=== PATIENT | female | born 1955 | race Caucasian/White ===

== ENCOUNTER 2023-01-27 06:03 | Day surgery (SDC) | payer MEDICARE, OTHER, SELFPAY ==
[2023-01-27] VITALS (9 sets, daily range): BP systolic 127–153; BP diastolic 59–88; PULSE 50–94; RESP 16–18; TEMP 36.1–36.2; O2SAT 97–100; BMI 26.2
[2023-01-27] MEDS: Lactated Ringers 1,000 ML 15 ML IV (06:52)
--- NOTE | 2023-01-27 07:28 | PCM.HP.BLA ---
History and Physical Pt examined and findings are unchanged from clearance of 01/16/23. 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
[2023-01-27] MEDS: Cefazolin 2 GM in 0.9% Normal Saline 100 ML IV (07:30)
--- NOTE | 2023-01-27 07:30 | BR_PTH ---
PATIENT: SHERRY FLORES LOC: [facility] [place] U#:[id number] AGE/SX: 67/F ROOM: RE01/27/[address]: Dr. Kalani Vieira MD : 1955 BED: DIS: 01/27/2023 SPEC #: [id number] RECD: 01/27/23 11:35 STATUS: RAHUL AMADO #: [id number] ARON: 01/27/23 07:[address]: Kalani Vieira DEPT: SURGICAL PATHOLOGY RECD BY: Joyce Beltre ENTERED: 01/27/23 12:00 SP TYPE: MAMOPLASTY OTHR DR: DUANE Fitzgerald Tissues: Right breast, NOS Procedures: Surgery Specimen Level IV HEADER OPERATION: Removal entry level electrician ports bilaterally, revision right breast PRE-OP DIAGNOSIS: History of breast cancer TISSUE SUBMITTED: Dog ear right breast status post mastectomy MICROSCOPIC DIAGNOSIS Dog ear right breast, excision: Skin and underlying soft tissue with minimal fibrosis. No evidence of malignancy. AM:chapis 01/31/2023 MICROSCOPIC DESCRIPTION Slides are reviewed. GROSS DESCRIPTION Received in fixative is one container labeled with the patient's name and designated dog ear right breast status post mastectomy. The specimen consists of a piece of skin with underlying tissue measuring 9.5 x 4.0 cm and up to 1.5 cm in thickness. Sections do not reveal any mass lesion. Child Care Education Coordinator sections are submitted in two cassettes. / SONNY:chapis 01/30/2023 TC:5 CPT: 03845
[2023-01-27] MEDS: Bupivacaine 0.25% 30 ML Vial (09:45)
--- NOTE | 2023-01-27 09:59 | OP.PCM_ITS ---
Problems Associated Problem List Diagnoses (1) History of breast cancer in adulthood: (2) Acquired absence of bilateral breasts and nipples: (3) Post-mastectomy deformity of breast: Report of Operation Date of Procedure: 01/27/23 Pre-Operative Diagnosis: Acquired absence bilateral breast status postmastectomy; deformity of reconstructed breast Post-Operative Diagnosis: Same Surgery/Procedure Performed:: Removal of anesthesiology tech ports bilaterally; excision of postmastectomy dogear right breast (15 cm) with intermediate closure Surgeon: Kalani Vieira Type of Anesthesia: General Specimen's removed: Dogear right breast Estimated Blood Loss (mL): Minimal Description of Procedure: The procedure of removal of bilateral implant ports as well as revision of the right mastectomy breast dogear was reviewed. The incisions and scars as well as the limitations after surgery were reviewed. She is marked in the preop holding area prior to surgery. The patient was brought to the operating room and placed under general anesthesia in the supine position. Care was taken to pad all pressure points, insert a Zarate catheter, and sequential compression stockings as well as warming blanket. The breast and chest are prepped and draped in the usual sterile fashion. Initially began with making a small inframammary incision on the right breast. This is carried down through the subcutaneous tissue until the port is identified. The port is then removed and sharply pulled to seat the plug within the implant which will serve as a permanent implant. The incision is then checked for hemostasis which is controlled with cautery. The inframammary crease on the right side is then lowered by incising the inferior edge of the ADM to allow the implant to migrate to a lower position. The inframammary crease is then set with [id number] Vicryl sutures which not only set the inframammary crease but also occlude the previous port pocket. The incision is then closed in layers using a V-Loc suture to approximate the skin and at least 3 layers including a subcuticular closure. The previously marked dogear on the right breast is then incised along the lower edge. Lateral to the breast, a layer of subcutaneous fat is also removed. Hemostasis is controlled with cautery. This incision is then closed in layers using Vicryl suture in the subcutaneous tissue to close the space as well as along the incision. This incision is also closed in multiple layers using a V-Loc suture which concludes with a subcuticular suture. We then directed our attention to the left breast. A small incision is made in the inframammary area overlying the anesthesiology tech port. It is carried down through the subcutaneous tissue until the port is identified. The port is then removed and the fill tube sharply pulled in order to seat the plug within the implant. This incision is then closed in layers using a Vicryl suture to occlude the previous port capsule as well as a V-Loc suture which approximated the incision in multiple layers. Quarter percent plain Marcaine is injected along all the incisions. Xeroform is placed on all the incisions along with fluff gauze and the patient was placed in a surgery bra. She tolerated the procedure well and was taken to the recovery area in an awakening in stable condition. Needle and sponge counts are correct. Complications None Admit VTE Documentation VTE Mechan Device Prophylaxis: SCD's
--- NOTE | 2023-01-27 10:07 | EX.PCM.DISCH ---
Discharge Instructions Diet Discharge Diet: No restrictions Activity Additional Activity Instructions:: Keep your back elevated (recliner position) at night to decrease swelling and bruising. Limit activities as reviewed in the home-going instructions provided in the office. Leave the dressing in place until seen in the office. Sponge bathe only. Keep the dressings and bra dry. Dressing / Incision Remove Dressing in: do not remove dressing Follow Up Care Please Follow Up With: Kalani Vieira MD When: In 1 week Test Results: Test results from this visit will be discussed in further detail at your follow-up appointment, if applicable. Discharge Plan Admission Attending Provider: Kalani Vieira Primary Care Provider: Tony Sandy NP Discharge Orders/Prescriptions Prescriptions: No Action atorvastatin 20 mg tablet 20 mg PO DAILY alendronate [Fosamax] 70 mg tablet 70 mg PO QWEEK cimetidine 200 mg tablet 200 mg PO QAC PRN (Reason: acid reflux) multivitamin [Multiple Vitamins] 1 EACH tablet 1 ea PO DAILY cholecalciferol (vitamin D3) 5,000 UNIT capsule 5,000 unit PO DAILY Patient Comments: SUPPLEMENT hydrochlorothiazide 25 mg tablet 25 mg PO DAILY Patient Comments: BP Referrals / Follow Up: Tony Sandy NP, POACHER WRINGER OPERATOR-C [Primary Care Provider] - Disposition Disposition (needs filled in before D/C Order can be placed): Home, Self Care
== END 2023-01-27 12:54 | disposition home or self-care (01) ==
LOC: SDC 06:07 → AC 06:08
PROVIDERS: PCP Nurse Practitioner Family; Referring Provider Plastic Surgery; Visit Provider Plastic Surgery
PROC: (CPT 11971; principal; 2023-01-27 07:10)
DX: Z90.13 Acquired absence of bilateral breasts and nipples (principal); E78.00 Pure hypercholesterolemia, unspecified; Z79.899 Other long term (current) drug therapy; Z85.3 Personal history of malignant neoplasm of breast; N60.31 Fibrosclerosis of right breast
CPT/HCPCS: 11971; 12034; 19120; 00300; 88305; J7120; J2405; J3475

== ENCOUNTER → 2023-05-24 | Outpatient (CLI) | payer MEDICARE, OTHER, SELFPAY ==
--- NOTE | 2023-05-24 15:55 | RAD_ITS ---
INDICATION: pain -- pain on right side EXAMINATION/TECHNIQUE: X-RAY - XR Chest 2 Views COMPARISON: FINDINGS: LINES/DEVICES: None. LUNGS: There is a right upper lobe opacity medially. Basilar atelectasis. No pneumothorax. MEDIASTINUM AND CARDIOVASCULAR STRUCTURES: Cardiac silhouette not enlarged. Central airways and mediastinal contour are unremarkable. BONES AND SOFT TISSUES: Unremarkable. Possible hiatal hernia. RAD/Chest PA and Lateral IMPRESSION: There is a right upper lobe opacity. Correlate with CT if needed. Electronically Signed: Wenceslao Colindres DO at 20:10 EST Reading Location ID and State: [facility] / [place] Tel [phone], Service support ,
== END | disposition home or self-care (01) ==
LOC: RAD 15:43
PROVIDERS: PCP Nurse Practitioner Family; Referring Provider Plastic Surgery; Visit Provider Plastic Surgery
DX: Z85.3 Personal history of malignant neoplasm of breast (principal)
CPT/HCPCS: 71046

== ENCOUNTER → 2023-05-31 | Outpatient (CLI) | payer MEDICARE, OTHER, SELFPAY ==
--- NOTE | 2023-05-31 13:22 | MRI_ITS ---
STUDY: BILATERAL CHEST MR WITHOUT AND WITH CONTRAST REASON FOR EXAM: Female, 67 years old. Right chest wall pain. History of implants. TECHNIQUE: Multi-sequence multi-echo imaging of the chest was performed. T1-weighted and T2-weighted images were performed before the administration of contrast. T1-weighted images were also performed after the intravenous administration of 11cc Clariscan without complications. Tissue markers identifying the area of clinical concern on the right side of the chest were placed (axial series 12 image 4 axial series 11 images 30-33) COMPARISON: Chest x-ray dated May 24, 2023 FINDINGS: RIGHT BREAST: Right subpectoral implant with scattered metallic artifact surrounding the implant from implant placement. Small fold in the posterior implant. No evidence of intracapsular or extracapsular implant rupture. No skin abnormality identified in the area of the tissue markers. Normal lymph nodes in the right axilla. No abnormality in the visualized regions of the chest or liver. MRI/Chest W/WO Contrast IMPRESSION: Intact right breast implant with no abnormality otherwise identified. CATEGORY: Electronically Signed: Robin Kim MD at 10:57 EST ,
[2023-05-31 14:01] LABS: CREATININE FINGERSTICK < 1.0 mg/dL (0.55-1.02); EGFR FINGERSTICK > 60.0000 mL/min (>60)
== END | disposition home or self-care (01) ==
LOC: MRI 13:07
PROVIDERS: PCP Nurse Practitioner Family; Visit Provider Plastic Surgery
DX: Z85.3 Personal history of malignant neoplasm of breast (principal)
CPT/HCPCS: 71552; A9575

== ENCOUNTER → 2023-07-21 | Outpatient (CLI) | payer MEDICARE, OTHER, SELFPAY ==
--- NOTE | 2023-07-21 12:57 | US_ITS ---
EXAM: US CHEST CLINICAL INDICATION: MEDIAL RIGHT CHEST SWELLING S/P MASTECTOMY W/ RECONSTRUCTION BREAST IMPLANTS TECHNIQUE: Real-time ultrasound of the chest with image documentation. COMPARISON: No relevant prior studies available. FINDINGS: OTHER VASCULATURE: There is a slightly echogenic mass which corresponds to the palpable lump in the right chest that measures 1.2 x 0.9 x 0.7 cm. This has vascularity on color Doppler images. There is a second hypoechoic area irregular borders and lateral to the palpable lump that measures 1.2 x 0.6 x 1.6 cm which is also vascular. SOFT TISSUES: Unremarkable. No mass or fluid collection. LYMPH NODES: Unremarkable. No lymphadenopathy. US/Chest IMPRESSION: Echogenic structure with increased vascularity that corresponds to palpable lump in the right chest. There is a second hypoechoic vascular structure lateral to the first lesion. Further evaluation with MRI is recommended. Electronically Signed: Clyde Thibodeaux MD at 23:52 EST ,
--- OUTSIDE RECORDS SUMMARY | 2023-07-21 13:16 | XMS RPT_ITS | CCD ---
Author Name Unknown Address [address] [place] [address] Organization [facility] Care Team Providers Care Supervisor [employer] Name Role Phone Smith Ravi Unavailable Unavailable Smith Ravi Unavailable Unavailable Hellinger, Jamison King Unavailable Unavailable Hellinger, Jamison King Unavailable Unavailable Yair Lopez Unavailable Unavailable Hellinger Jamison KENT Primary Care Provider Hellinger Jamison KENT Primary Care Provider Hellinger SHRIMP TRAWLER-Jamison KENT Primary Care Provide r HelJamison watson CNP Primary Care Provider GHAZOUL, KALANI Attending Unavailable SELF, SELF Referring Unavailable HELLINGER, JAMISON L Primary Care Unavailable GHAZOUL, KALANI Attending Unavailable SELF, SELF Referring Unavailable HELLINGER, JAMISON L Primary Care Unavailable GHAZOUL, KALANI Attending Unavailable SELF, SELF Referring Unavailable HELLINGER, JAMISON L Primary Care Unavailable GHAZOUL, KALANI Attending Unavailable GHAZOUL, KALANI Referring Unavailable HELLINGER, JAMISON L Primary Care Unavailable GHAZOUL, KALANI Attending Unavailable SELF, SELF Referring Unavailable HELLINGER, JAMISON L Primary Care Unavailable GHAZOUL, KALANI Attending Unavailable HELLINGER, JAMISON L Primary Care Unavailable SELF, SELF Referring Unavailable GHAZOUL, KALANI Attending Unavailable HELLINGER, JAMISON L Primary Care Unavailable SELF, SELF Referring Unavailable GHAZOUL, KALANI Attending Unavailable HELLINGER, JAMISON L Primary Care Unavailable SELF, SELF Referring Unavailable SELF, SELF Referring Unavailable HELLINGER, JAMISON L Primary Care Unavailable GHAZOUL, KALANI Attending Unavailable HELLINGER, JAMISON L Primary Care Unavailable GHAZOUL, KALANI Attending Unavailable SELF, SELF Referring Unavailable HELLINGER, JAMISON L Primary Care Unavailable LOIS, SHAYNA Referring Unavailable GHAZOUL, KALANI Attending Unavailable GHAZOUL, KALANI Attending Unavailable GHAZOUL, KALANI Referring Unavailable GHAZOUL, KALANI Admitting Unavailable HELLINGER, JAMISON L Primary Care Unavailable FLOR MEDINA. Attending Unavailable FLOR MEDINA Referring Unavailable [facility] Primary Care Unavailable Hellinger Felicia KENT Primary Care Provider Hellinger Felicia KENT Primary Care Provider FLOR MEDINA Attending Unavailable FLOR MEDINA Referring Unavailable HELLINGANANDA, FELICIA KING Primary Care Unavailable FLOR TEJEDA Attending Unavailable HELLING, FELICIA KING Primary Care Unavailable FLOR MEDINA Attending Unavailable [facility] Referring Unavailable [facility] Primary Care Unavailable SHAYNA PAIGE Referring Unavailable HELLING, FELICIA KING Primary Care Unavailable Allergies Allergy Classification Reported Allergen(s) Allergy Type Date of Onset Reaction(s) Facility (8 sources) *Adhesive Tape Propensity to adverse reactions 07-12-2022 [facility] Medications Current Medications Medication Drug Class(es) Dates Sig (Normalized) Sig (Original) acetaminophen 325 mg / oxyCODONE hydrochloride 5 mg oral tablet (10 sources) Opioid Agonist Start: 07-25-2022 End: 07-28-2022 take 1 tablet by mouth every six hours as needed for pain oxyCODONE-acetami nophen 5-325 MG per tablet Indications: Acquired absence of bilateral breasts and nipples Take 1 tablet by mouth every 6 hours as needed for Moderate Pain (Use ONLY as needed for pain) for up to 3 days. 10 tablet 0 07/25/2022 Active Completed/Discontinued Medications Medication Drug Class(es) Dates Sig (Normalized) Sig (Original) alendronic acid 70 mg oral tablet (8 sources) Bisphosphonate Start: 11-08-2022 take 1 tablet by mouth every week in the morning alendronate (FOSAMAX) 70 mg tablet Take 1 tablet by mouth one time a week. In AM with cup of water on empty stomach. Nothing else by mouth and stay upright for 30 min. 12 tablet 2 11/08/2022 Active Problems Active Problems Problem Classification Problem Date Documented Date Episodic/Chronic Cancer of breast (20 sources) Lobular carcinoma in situ of right breast; Translations: [Lobular carcinoma in situ of right breast] Onset: 01-04-2017 Chronic Cancer of breast (20 sources) History of malignant neoplasm of breast; Translations: [Personal history of malignant neoplasm of breast] Onset: 10-02-2020 10-02-2020 Episodic Menopausal disorders (20 sources) Atrophic vaginitis; Translations: [Postmenopausal atrophic vaginitis] Onset: 12-15-2009 12-15-2009 Chronic Osteoporosis (20 sources) Osteoporosis; Translations: [Age-related osteoporosis without current pathological fracture] Onset: 07-10-2017 11-04-2020 Chronic Prolapse of female genital organs (20 sources) Incomplete uterovaginal prolapse; Translations: [Incomplete uterovaginal prolapse] Onset: 12-15-2009 12-15-2009 Chronic Residual codes; unclassified (20 sources) Bilateral acquired absence of breast; Translations: [Acquired absence of bilateral breasts and nipples] Onset: 04-27-2022 Episodic Residual codes; unclassified (3 sources) History of breast reconstruction; Translations: [Other specified postprocedural states] Episodic Residual codes; unclassified (2 sources) Other specified postprocedural states; Translations: [Other specified postprocedural states] Onset: 10-11-2022 Episodic Residual codes; unclassified (1 source) Acquired absence of bilateral breasts and nipples; Translations: [Acquired absence of bilateral breasts and nipples] Onset: 07-25-2022 Episodic Unclassified (2 sources) Establish Care; Translations: [Establish Care] Onset: 09-27-2022 Unclassified (2 sources) Consult; Translations: [Consult] Onset: 04-27-2022 Past or Other Problems Problem Classification Problem Date Documented Date Episodic/Chronic Other aftercare (12 sources) Long-term current use of aromatase inhibitor; Translations: [termite exterminator (current) use of aromatase inhibitors] Onset: 01-04-2017 10-02-2020 Episodic Other screening for suspected conditions (not mental disorders or infectious disease) (7 sources) Patient encounter status; Translations: [Encounter for screening for osteoporosis] Onset: 09-27-2022 Episodic Residual codes; unclassified (12 sources) Family history of breast cancer; Translations: [Family history of malignant neoplasm of breast] Onset: 12-15-2009 12-15-2009 Episodic Residual codes; unclassified (20 sources) Breast cancer genetic marker of susceptibility positive; Translations: [Genetic susceptibility to malignant neoplasm of breast] Onset: 02-06-2017 02-06-2017 Episodic Residual codes; unclassified (12 sources) Postmenopausal state; Translations: [Asymptomatic menopausal state] Onset: 10-02-2020 10-02-2020 Episodic Residual codes; unclassified (1 source) Genetic susceptibility to malignant neoplasm of breast; Translations: [BRCA gene mutation positive] Onset: 02-06-2017 Episodic Residual codes; unclassified (1 source) Genetic susceptibility to other malignant neoplasm; Translations: [BRCA gene mutation positive] Onset: 02-06-2017 Episodic Results Test Name Value Interpretation Reference Range Facil ity Vital Signs Date Time Vital Sign Value Performing Clinician Facility 05-12-2023 15:53-0500 Body temperature 98.91 [degF] Flor Tejeda MD Work Phone: [facility] 05-12-2023 15:53-0500 Body weight 57.06 kg Flor Tejeda MD Work Phone: [facility] 05-12-2023 15:53-0500 Diastolic blood pressure 78 mm[Hg] Flor Tejeda MD Work Phone: [facility] 05-12-2023 15:53-0500 Heart rate 84 /min Flor Tejeda MD Work Phone: [facility] 05-12-2023 15:53-0500 SaO2% (BldA) [Mass fraction] 98 % Flor Tejeda MD Work Phone: [facility] 05-12-2023 15:53-0500 Systolic blood pressure 136 mm[Hg] Flor Tejeda MD Work Phone: [facility] 09-27-2022 13:21-0400 Body height 147.3 cm Flor Medina APRN.CNP Work Phone: [facility] 09-27-2022 13:21-0400 Body temperature 98.2 [degF] Flor Medina APRN.CHENILLE MACHINE OPERATOR Work Phone: [facility] 09-27-2022 13:21-0400 Body weight 56.79 kg Flor Medina APRN.CHENILLE MACHINE OPERATOR Work Phone: [facility] 09-27-2022 13:21-0400 Diastolic blood pressure 70 mm[Hg] Flor Medina APRN.CHENILLE MACHINE OPERATOR Work Phone: [facility] 09-27-2022 13:21-0400 Heart rate 54 /min Flor Medina SHRIMP TRAWLER.CHENILLE MACHINE OPERATOR Work Phone: [facility] 09-27-2022 13:21-0400 Respiratory rate 16 /min Flor Medina APRN.CHENILLE MACHINE OPERATOR Work Phone: [facility] 09-27-2022 13:21-0400 SaO2% (BldA) [Mass fraction] 97 % Flor Medina APRN.CHENILLE MACHINE OPERATOR Work Phone: [facility] 09-27-2022 13:21-0400 Systolic blood pressure 133 mm[Hg] Flor Medina APRN.CHENILLE MACHINE OPERATOR Work Phone: [facility] 09-27-2022 09:39-0400 Body height 148.6 cm Kalani Vieira MD Work Phone: [facility] 09-27-2022 09:39-0400 Body mass index (BMI) [Ratio] 25.76 kg/m2 Kalani Vieira MD Work Phone: [facility] 09-27-2022 09:39-0400 Body temperature 97.11 [degF] Kalani Vieira MD Work Phone: [facility] 09-27-2022 09:39-0400 Body weight 56.88 kg Kalani Vieira MD Work Phone: [facility] 09-27-2022 09:39-0400 Diastolic blood pressure 79 mm[Hg] Kalani Vieira MD Work Phone: 2(189)129-565782 [place] [address] 09-27-2022 09:39-0400 Heart rate 58 /min Kalani Vieira MD Work Phone: 7(342)888-109260 [place] [address] 09-27-2022 09:39-0400 Systolic blood pressure 138 mm[Hg] Kalani Vieira MD Work Phone: 1(455)562-453160 [place] [address] 09-13-2022 13:13-0400 Body height 148.6 cm Kalani Vieira MD Work Phone: 9(097)386-824060 [place] [address] 09-13-2022 13:13-0400 Body mass index (BMI) [Ratio] 26.05 kg/m2 Kalani Vieira MD Work Phone: 0(585)037-210160 [place] [address] 09-13-2022 13:13-0400 Body temperature 97.81 [degF] Kalani Vieira MD Work Phone: 3(297)903-516760 [place] [address] 09-13-2022 13:13-0400 Body weight 57.52 kg Kalani Vieira MD Work Phone: 4(658)157-479260 [place] [address] 09-13-2022 13:13-0400 Diastolic blood pressure 86 mm[Hg] Kalani Vieira MD Work Phone: 5(229)635-824960 [place] [address] 09-13-2022 13:13-0400 Heart rate 67 /min Kalani Vieira MD Work Phone: 1(639)307-131260 [place] [address] 09-13-2022 13:13-0400 Systolic blood pressure 143 mm[Hg] Kalani Vieira MD Work Phone: 6(015)462-556360 [place] [address] 08-30-2022 11:36-0500 Body height 148.6 cm Kalani Vieira MD Work Phone: 6(885)008-168860 [place] [address] 08-30-2022 11:36-0500 Body mass index (BMI) [Ratio] 25.62 kg/m2 Kalani Vieira MD Work Phone: 7(561)365-776360 [place] [address] 08-30-2022 11:36-0500 Body temperature 98.01 [degF] Kalani Vieira MD Work Phone: 8(535)088-341160 [place] [address] 08-30-2022 11:36-0500 Body weight 56.56 kg Kalani Vieira MD Work Phone: 7(288)572-086160 [place] [address] 08-30-2022 11:36-0500 Diastolic blood pressure 84 mm[Hg] Kalani Vieira MD Work Phone: 5(748)122-328460 [place] [address] 08-30-2022 11:36-0500 Heart rate 63 /min Kalani Vieira MD Work Phone: 6(395)873-862760 [place] [address] 08-30-2022 11:36-0500 Systolic blood pressure 145 mm[Hg] Kalani Vieira MD Work Phone: 5(394)672-697260 [place] [address] 08-09-2022 13:08-0500 Body height 148.6 cm Kalani Vieira MD Work Phone: 1(248)037-618660 [place] [address] 08-09-2022 13:08-0500 Body mass index (BMI) [Ratio] 25.56 kg/m2 Kalani Vieira MD Work Phone: 6(829)201-818060 [place] [address] 08-09-2022 13:08-0500 Body temperature 97.3 [degF] Kalani Vieira MD Work Phone: 8(785)631-384860 [place] [address] 08-09-2022 13:08-0500 Body weight 56.43 kg Kalani Vieira MD Work Phone: 4(472)307-744060 [place] [address] 08-09-2022 13:08-0500 Diastolic blood pressure 77 mm[Hg] Kalani Vieira MD Work Phone: 2(587)409-390260 [place] [address] 08-09-2022 13:08-0500 Heart rate 63 /min Kalani Vieira MD Work Phone: 0(384)629-396860 [place] [address] 08-09-2022 13:08-0500 Systolic blood pressure 126 mm[Hg] Kalani Vieira MD Work Phone: 0(896)207-039360 [place] [address] 2022 13:14-0500 Body height 148.6 cm Kalani Vieira MD Work Phone: 1(922)270-364260 [place] [address] 2022 13:14-0500 Body mass index (BMI) [Ratio] 25.6 kg/m2 Kalani Vieira MD Work Phone: 8(424)406-019160 [place] [address] 2022 13:14-0500 Body temperature 97.5 [degF] Kalani Vieira MD Work Phone: 0(353)498-291060 [place] [address] 2022 13:14-0500 Body weight 56.52 kg Kalani Vieira MD Work Phone: 5(125)041-556460 [place] [address] 2022 13:14-0500 Diastolic blood pressure 77 mm[Hg] Kalani Vieira MD Work Phone: 2(800)326-858260 [place] [address] 2022 13:14-0500 Heart rate 56 /min Kalani Vieira MD Work Phone: 3(736)925-290160 [place] [address] 2022 13:14-0500 Systolic blood pressure 145 mm[Hg] Kalani Vieira MD Work Phone: 9(613)349-105960 [place] [address] 07-25-2022 15:30-0500 Diastolic blood pressure 70 mm[Hg] Kalani Vieira MD Work Phone: 0(717)637-924060 [place] [address] 07-25-2022 15:30-0500 Heart rate 77 /min Kalani Vieira MD Work Phone: 3(082)921-173160 [place] [address] 07-25-2022 15:30-0500 Respiratory rate 17 /min Kalani Vieira MD Work Phone: 5(695)536-884060 [place] [address] 07-25-2022 15:30-0500 SaO2% (BldA) [Mass fraction] 98 % Kalani Vieira MD Work Phone: 1(941)484-943260 [place] [address] 07-25-2022 15:30-0500 Systolic blood pressure 139 mm[Hg] Kalani Vieira MD Work Phone: 6(625)817-630460 [place] [address] 07-25-2022 12:45-0500 Body temperature 96.8 [degF] Kalani Vieira MD Work Phone: 4(013)540-180560 [place] [address] 07-25-2022 06:04-0500 Body height 148.6 cm Kalani Vieira MD Work Phone: 7(791)095-589560 [place] [address] 07-25-2022 06:04-0500 Body mass index (BMI) [Ratio] 25.06 kg/m2 Kalani Vieira MD Work Phone: 2(881)974-675760 [place] [address] 07-25-2022 06:04-0500 Body weight 55.34 kg Kalani Vieira MD Work Phone: 6(571)164-066660 [place] [address] 07-12-2022 12:55-0500 Body height 147.3 cm Kalani Vieira MD Work Phone: 3(069)096-564060 [place] [address] 07-12-2022 12:55-0500 Body mass index (BMI) [Ratio] 25.92 kg/m2 Kalani Vieira MD Work Phone: 0(691)426-931260 [place] [address] 07-12-2022 12:55-0500 Body temperature 97.11 [degF] Kalani Vieira MD Work Phone: 5(063)965-946960 [place] [address] 07-12-2022 12:55-0500 Body weight 56.25 kg Kalani Vieira MD Work Phone: 7(288)201-297960 [place] [address] 07-12-2022 12:55-0500 Diastolic blood pressure 62 mm[Hg] Kalani Vieira MD Work Phone: 2(738)090-104560 [place] [address] 07-12-2022 12:55-0500 Heart rate 58 /min Kalani Vieira MD Work Phone: 5(495)042-016160 [place] [address] 07-12-2022 12:55-0500 Systolic blood pressure 114 mm[Hg] Kalani Vieira MD Work Phone: 2(504)005-103660 [place] [address] 06-21-2022 12:50-0500 Body height 147.3 cm Kalani Vieira MD Work Phone: 7(346)072-965760 [place] [address] 06-21-2022 12:50-0500 Body mass index (BMI) [Ratio] 25.92 kg/m2 Kalani Vieira MD Work Phone: 2(753)400-593860 [place] [address] 06-21-2022 12:50-0500 Body temperature 98.2 [degF] Kalani Vieira MD Work Phone: 7(499)143-325160 [place] [address] 06-21-2022 12:50-0500 Body weight 56.25 kg Kalani Vieira MD Work Phone: 5(587)783-642560 [place] [address] 06-21-2022 12:50-0500 Diastolic blood pressure 79 mm[Hg] Kalani Vieira MD Work Phone: 2(611)320-951260 [place] [address] 06-21-2022 12:50-0500 Heart rate 64 /min Kalani Vieira MD Work Phone: 1(160)392-139460 [place] [address] 06-21-2022 12:50-0500 Systolic blood pressure 151 mm[Hg] Kalani Vieira MD Work Phone: 5(448)439-895760 [place] [address] 04-27-2022 14:51-0400 Body height 147.3 cm Kalani Vieira MD Work Phone: 9(645)055-411560 [place] [address] 04-27-2022 14:51-0400 Body mass index (BMI) [Ratio] 25.29 kg/m2 Kalani Vieira MD Work Phone: 6(141)453-117960 [place] [address] 04-27-2022 14:51-0400 Body temperature 97.39 [degF] Kalani Vieira MD Work Phone: 1(190)784-240060 [place] [address] 04-27-2022 14:51-0400 Body weight 54.88 kg Kalani Vieira MD Work Phone: 9(839)494-192360 [place] [address] 04-27-2022 14:51-0400 Diastolic blood pressure 81 mm[Hg] Kalani Vieira MD Work Phone: [facility] 04-27-2022 14:51-0400 Heart rate 63 /min Kalani Vieira MD Work Phone: [facility] 04-27-2022 14:51-0400 Systolic blood pressure 130 mm[Hg] Kalani Vieira MD Work Phone: [facility] 04-12-2022 10:50-0400 Body height 147.3 cm Analia Whitten MD Work Phone: [facility] 04-12-2022 10:50-0400 Body weight 55.79 kg Analia Whitten MD Work Phone: [facility] 04-12-2022 10:50-0400 Diastolic blood pressure 72 mm[Hg] Analia Whitten MD Work Phone: [facility] 04-12-2022 10:50-0400 Systolic blood pressure 110 mm[Hg] Analia Whitten MD Work Phone: [facility] 03-29-2022 10:41-0400 Body temperature 97.9 [degF] Shayna Paige MD Work Phone: [facility] 03-29-2022 10:41-0400 Body weight 55.38 kg Shayna Paige MD Work Phone: [facility] 03-29-2022 10:41-0400 Diastolic blood pressure 71 mm[Hg] Shayna Paige MD Work Phone: [facility] 03-29-2022 10:41-0400 Heart rate 63 /min Shayna Paige MD Work Phone: [facility] 03-29-2022 10:41-0400 Respiratory rate 16 /min Shayna Paige MD Work Phone: [facility] 03-29-2022 10:41-0400 SaO2% (BldA) [Mass fraction] 97 % Shayna Paige MD Work Phone: [facility] 03-29-2022 10:41-0400 Systolic blood pressure 144 mm[Hg] Shayna Paige MD Work Phone: [facility] 09-30-2021 10:21-0400 Body temperature 98.2 [degF] Shayna Paige MD Work Phone: [facility] 09-30-2021 10:21-0400 Body weight 56.02 kg Shayna Paige MD Work Phone: [facility] 09-30-2021 10:21-0400 Diastolic blood pressure 72 mm[Hg] Shayna Paige MD Work Phone: [facility] 09-30-2021 10:21-0400 Heart rate 55 /min Shayna Paige MD Work Phone: [facility] 09-30-2021 10:21-0400 Respiratory rate 16 /min Shayna Paige MD Work Phone: [facility] 09-30-2021 10:21-0400 SaO2% (BldA) [Mass fraction] 97 % Shayna Paige MD Work Phone: [facility] 09-30-2021 10:21-0400 Systolic blood pressure 140 mm[Hg] Shayna Paige MD Work Phone: [facility] Encounters Encounter Date Encounter Type Care Provider Facility Start: 05-12-2023 End: 05-12-2023 ambulatory FLOR TEJEDA Facility:[facility] Start: 05-12-2023 End: 05-12-2023 Patient encounter procedure Flor Tejeda MD Work Phone: General Surgery Procedures Date Procedure Procedure Detail Performing Clinician Start: 09-27-2021 Adult depression scr eening assessment Nahomi Carrasco RN Start: 04-21-2021 Colonoscopy Nahomi gomez RN Start: 03-10-2016 Mammography Nahomi gomez RN Plan of Treatment Date Care Activity Detail Author Start: 01-31-2028 Tetanus vaccination [facility] Start: 01-31-2028 Urine microalbumin profile [facility] Start: 04-21-2026 Colonoscopy COLONOSCOPY [facility] Start: 04-21-2026 COLORECTAL CANCER SCREENING COLORECTAL CANCER SCREENING [facility] Start: 09-27-2025 DIABETES SCREEN DIABETES SCREEN [facility] Start: 09-27-2025 Diabetes Screening Diabetes Screening [facility] Start: 03-29-2025 DIABETES SCREEN DIABETES SCREEN [facility] Start: 09-30-2024 DIABETES SCREEN DIABETES SCREEN [facility] Start: 07-12-2023 Potassium [Moles/volume] in Serum or Plasma POTASSIUM [facility] Start: 03-03-2023 Covid-19 Vaccine () Covid-19 Vaccine () [facility] Start: 03-03-2023 Covid-19 Vaccine () Covid-19 Vaccine () [facility] Start: 03-03-2023 Influenza vaccination [facility] Start: 09-27-2022 Adult depression screening assessment DEPRESSION SCREENING [facility] Start: 09-27-2022 End: 11-21-2022 CBC W Auto Differential panel - Blood CBC + DIFF Lab Routine BRCA 2 gene mutation positive Invasive lobular carcinoma of right breast, stage 1 (HCC) T2 N0 Expected: 09/27/2022, Expires: 11/21/2022 [facility] Work Phone: Immunizations Immunization Date Immunization Notes Care Provider [facility] 04-01-2020 influenza, injectabl e, quadrivalent, preservative free Analia Whitten MD Work Phone: [facility] Work Phone: 04-01-2020 influenza virus vaccine, unspecified formulation Kalani Vieira MD Work Phone: [facility] 02-17-2020 pneumococcal conjuga te vaccine, 13 valent Analia Whitten MD Work Phone: [facility] Work Phone: 05-08-2019 influenza, injectabl e, quadrivalent, preservative free Analia Whitten MD Work Phone: [facility] Work Phone: 05-10-2018 influenza, injectabl e, quadrivalent, preservative free Analia Whitten MD Work Phone: [facility] Work Phone: 05-02-2018 influenza, injectabl e, quadrivalent, preservative free Analia Whitten MD Work Phone: [facility] Work Phone: 01-30-2018 tetanus toxoid, redu hollis diphtheria toxoid, and acellular pertussis vaccine, adsorbed Analia Whitten MD Work Phone: [facility] Work Phone: Payers Date Payer Category Payer Medicare MEDICARE MEDICAR E A AND B [id number] 2019-Present [phone] [address] [address] [place] [address] Medicare [id number] 2019 Medicare [id number] 2019 Medicare [id number] 2019 Unknown [employer] D [id number] 2019-Present [phone] [address] [address] [place] [address] Indemnity [id number] 2019 Unknown [id number] 2017 Unknown 1954 Unknown [id number] [id number] .983 1954 Unknown [id number] [id number] .983 1954 Unknown [id number] [id number] .983 1954 Unknown [id number] [id number] .983 1954 Unknown [id number] [id number] .983 1954 Unknown [id number] [id number] .983 1954 Unknown [id number] [id number] .983 1954 Unknown [id number] 2.16.840.1.251025.3.579.2 .983 1954 Unknown [id number] [id number] .983 1954 Unknown [id number] [id number] .983 1954 Unknown [id number] 2.16.840.1.521232.3.579.2 .983 1954 Unknown [id number] [id number] .983 1954 Unknown [id number] .903 [facility] [id number] Social History Date Type Detail Facility Start: 01-21-2013 End: 04-12-2022 Tobacco smoking status NHIS Never smoked tobacco [facility] Start: 04-23-2021 End: 05-12-2023 Alcohol intake Current drinker of alcohol (finding) [facility] Start: 04-23-2021 End: 11-08-2022 Alcohol intake [facility] Start: 01-21-2013 History SDOH Alcohol Comment occasionally [facility] Start: 1955 Sex Assigned At Not on file C [facility] Start: 01-21-2013 End: 04-12-2022 Tobacco use and exposure Smokeless [facility] Start: 03-19-2022 End: 04-12-2022 Exposure to SARS-CoV-2 (event) Not sure [facility] Start: 04-12-2022 End: 11-08-2022 Tobacco use panel [facility] Adult Depression Screening Assessment 0 [facility] Medical Equipment Procedure Code Equipment Code Equipment Origin al Text Equipment Identifier Dates [employer] und Spectrum Post-Operatively Adjustable Saline Breast Implant [id number] Start: 07-25-2022 Clinical Notes 09-30-2021 to 05-12-2023 Flor Tejeda MD - 05/12/2023 4:01 PM ESTTelephone Encounter - Rafia Oswald - 05/05/2023 9:40 AM EDTTelephone Encounter - Anitha Fernando LPN - 05/05/2023 9:19 AM EDTPatient Instructions Note Date & Type Note Facility 05-12-2023 Note HNO ID: [id number] Author: Flor Tejeda MD Service: ? Author Type: Physician Type: Progress Notes Filed: 05/13/2023 8:29 PM Note Text: Sherry Vazquez 1955 REFERRING PHYSICIAN: No ref. provider found CHIEF COMPLAINT: Follow Up (Yearly follow-up for breast evaluation. ) HPI: The patient is a 67 year old female presents for follow up for breast cancer She has had reconstructive breast surgery in July of this year She has concern about area upper inner aspect of right breast - feels like scar tissue Slight asymmetry - left greater than right but otherwise feels ok PAST MEDICAL HISTORY Diagnosis Date BRCA2 positive 12/2016 Breast cancer (HCC) 10/2016 right Hyperlipidemia Hyperlipidemia Hypertension PAST SURGICAL HISTORY Procedure Laterality Date ABDOMINAL SURGERY HX BREAST BIOPSY Right 10/2016 BREAST LUMPECTOMY HX Right 10/2016 BREAST SURGERY HX COLONOSCOPY FLX DX W/COLLJ SPEC WHEN PFRMD 04/21/2021 MASTECTOMY HX Right 11/22/2016 MASTECTOMY HX 03/2017 Prophylactic SALPINGO-OOPHORECTOMY COMPL/PRTL UNI/BI SPX Bilateral 03/22/2017 laprascopic BSO, prophylactic TUBAL LIGATION HX Current Outpatient Medications Medication Sig alendronate (FOSAMAX) 70 mg tablet Take 1 tablet by mouth one time a week. In AM with cup of water on empty stomach. Nothing else by mouth and stay upright for 30 min. cimetidine (TAGAMET) 200 mg tablet Take 200 mg by mouth as needed. atorvastatin (LIPITOR) 20 mg tablet Take 20 mg by mouth once daily. cholecalciferol (VITAMIN D3) 5,000 unit tab Take 5,000 Units by mouth once daily. hydroCHLOROthiazide (HYDRODIURIL, ESIDRIX) 12.5 mg tablet Take 25 mg by mouth once daily. MULTIVITAMIN ORAL Take by mouth. No current facility-administered medications for this visit. ALLERGIES: Patient has no known allergies. PERSONAL HISTORY: Social History Tobacco Use Smoking status: Never Smokeless tobacco: Never Vaping Use Vaping Use: Never used Substance Use Topics Alcohol use: Yes Alcohol/week: 15.0 standard drinks of alcohol Types: 6 Cans of Beer (12oz) per week Comment: occasionally Drug use: No FAMILY HISTORY Problem Relation Age of Onset Heart Attack Sister 55 Heart Mother Endometrial ca also [Abida Weldon] Breast Cancer Mother 85 Prostate Cancer Father Breast Cancer Sister at age 32 Breast Cancer Sister at age 45 Colon Cancer Paternal Grandfather other (BRCA2 mutated) Other REVIEW OF SYMPTOMS: The review of systems data was entered by the nurse and reviewed by me There are no exam notes on file for this visit. PHYSICAL EXAMINATION: General: The patient is 67 year old female, well nourished, well hydrated in no acute distress. The patient is oriented to time, place, and person. VITALS: Blood pressure 136/78, pulse 84, temperature 37.2 ?C (98.9 ?F), weight 57.1 kg (125 lb 12.8 oz), SpO2 98 %. Body mass index is 26.3 kg/m?. Head - Normocephalic. EOM intact with sclera clear and no icterus noted. Mouth with mucus membranes moist. Neck - supple with no jugular venous distention noted. Trachea is midline. No carotid bruits noted. No thyroid enlargement or thyroid nodules detected. No masses noted. Chest/breast - both breasts surgically absent with reconstruction (implants) in place, no suspicious masses - patient points to inner upper quadrant of right chest wall - but this is c/w scar tissue Lungs - clear to auscultation. Normal breath sounds. No rales/rhonchi/wheezing noted. No labored breathing noted, such as retractions. No cough heard. Heart - normal S1 and S2 auscultated. No rubs/clicks/murmurs noted. Regular rate. Abdomen - soft and benign. . Extremities - no calf tenderness noted. No pitting edema noted. Skin - normal skin integrity. Lymph - no cervical adenopathy detected, no supraclavicular adenopathy detected, no axillary adenopathy detected Neurological - gait normal, no focal deficits noted Psych - calm and appropriate Assessment IMPRESSION: history of breast cancer PLAN: I have discussed the above with the patient. I have reassured patient that there is no clinical evidence of malignancy The patient acknowledges he above. I have answered all questions to the patient?s satisfaction and the patient has no further questions. I have confirmed and edited as necessary, the PFSH and ROS obtained by others. . Diagnoses: (Z85.3) History of right breast cancer (primary encounter diagnosis) Return to Clinic: The patient is will follow up with me in one year, or sooner if she notes any worsening signs/symptoms. I spent a total of 21 minutes on the date of the service which included preparing to see the patient with review of any pertinent laboratory studies/radiological imaging/medical records, [id number] patient care, obtaining oral medical history from the patient in this encounter, performing a medically appropriate examinatio (more content not included)... [facility] 05-12-2023 History of Present illness Narrative Sherry Vazquez 1955 REFERRING PHYSICIAN: No ref. provider found CHIEF COMPLAINT: Follow Up (Yearly follow-up for breast evaluation. ) HPI: The patient is a 67 year old female presents for follow up for breast cancer She has had reconstructive breast surgery in July of this year She has concern about area upper inner aspect of right breast - feels like scar tissue Slight asymmetry - left greater than right but otherwise feels ok PAST MEDICAL HISTORY Diagnosis Date BRCA2 positive 12/2016 Breast cancer (HCC) 10/2016 right Hyperlipidemia Hyperlipidemia Hypertension PAST SURGICAL HISTORY Procedure Laterality Date ABDOMINAL SURGERY HX BREAST BIOPSY Right 10/2016 BREAST LUMPECTOMY HX Right 10/2016 BREAST SURGERY HX COLONOSCOPY FLX DX W/COLLJ SPEC WHEN PFRMD 04/21/2021 MASTECTOMY HX Right 11/22/2016 MASTECTOMY HX 03/2017 Prophylactic SALPINGO-OOPHORECTOMY COMPL/PRTL UNI/BI SPX Bilateral 03/22/2017 laprascopic BSO, prophylactic TUBAL LIGATION HX Current Outpatient Medications Medication Sig alendronate (FOSAMAX) 70 mg tablet Take 1 tablet by mouth one time a week. In AM with cup of water on empty stomach. Nothing else by mouth and stay upright for 30 min. cimetidine (TAGAMET) 200 mg tablet Take 200 mg by mouth as needed. atorvastatin (LIPITOR) 20 mg tablet Take 20 mg by mouth once daily. cholecalciferol (VITAMIN D3) 5,000 unit tab Take 5,000 Units by mouth once daily. hydroCHLOROthiazide (HYDRODIURIL, ESIDRIX) 12.5 mg tablet Take 25 mg by mouth once daily. MULTIVITAMIN ORAL Take by mouth. No current facility-administered medications for this visit. ALLERGIES: Patient has no known allergies. PERSONAL HISTORY: Social History Tobacco Use Smoking status: Never Smokeless tobacco: Never Vaping Use Vaping Use: Never used Substance Use Topics Alcohol use: Yes Alcohol/week: 15.0 standard drinks of alcohol Types: 6 Cans of Beer (12oz) per week Comment: occasionally Drug use: No FAMILY HISTORY Problem Relation Age of Onset Heart Attack Sister 55 Heart Mother Endometrial ca also [Abida Weldon] Breast Cancer Mother 85 Prostate Cancer Father Breast Cancer Sister at age 32 Breast Cancer Sister at age 45 Colon Cancer Paternal Grandfather other (BRCA2 mutated) Other REVIEW OF SYMPTOMS: The review of systems data was entered by the nurse and reviewed by me There are no exam notes on file for this visit. PHYSICAL EXAMINATION: General: The patient is 67 year old female, well nourished, well hydrated in no acute distress. The patient is oriented to time, place, and person. VITALS: Blood pressure 136/78, pulse 84, temperature 37.2 C (98.9 F), weight 57.1 kg (125 lb 12.8 oz), SpO2 98 %. Body mass index is 26.3 kg/m . Head - Normocephalic. EOM intact with sclera clear and no icterus noted. Mouth with mucus membranes moist. Neck - supple with no jugular venous distention noted. Trachea is midline. No carotid bruits noted. No thyroid enlargement or thyroid nodules detected. No masses noted. Chest/breast - both breasts surgically absent with reconstruction (implants) in place, no suspicious masses - patient points to inner upper quadrant of right chest wall - but this is c/w scar tissue Lungs - clear to auscultation. Normal breath sounds. No rales/rhonchi/wheezing noted. No labored breathing noted, such as retractions. No cough heard. Heart - normal S1 and S2 auscultated. No rubs/clicks/murmurs noted. Regular rate. Abdomen - soft and benign. . Extremities - no calf tenderness noted. No pitting edema noted. Skin - normal skin integrity. Lymph - no cervical adenopathy detected, no supraclavicular adenopathy detected, no axillary adenopathy detected Neurological - gait normal, no focal deficits noted Psych - calm and appropriate Assessment IMPRESSION: history of breast cancer PLAN: I have discussed the above with the patient. I have reassured patient that there is no clinical evidence of malignancy The patient acknowledges he above. I have answered all questions to the patient s satisfaction and the patient has no further questions. I have confirmed and edited as necessary, the PFSH and ROS obtained by others. . Diagnoses: (Z85.3) History of right breast cancer (primary encounter diagnosis) Return to Clinic: The patient is will follow up with me in one year, or sooner if she notes any worsening signs/symptoms. I spent a total of 21 minutes on the date of the service which included preparing to see the patient with review of any pertinent laboratory studies/radiological imaging/medical records, [id number] patient care, obtaining oral medical history from the patient in this encounter, performing a medically appropriate examination, counseling and educating the patient/family/caregiver, and completing appropriate medical documentation. Flor Tejeda MD documented in this encounter [facility] 05-05-2023 Miscellaneous Notes Patient returned call, she said she sees Dr Tejeda every year for annual breast check Thank you Called patient to question appointment??? Not sure Dr. Tejeda is appropriate provider for patient to see. Please transfer to Gen Surg. documented in this encounter [facility] 11-08-2022 Note HNO ID: [id number] Author: Flor Medina APRN.[employer] MACHINE OPERATOR Service: ? Author Type: Nurse Practitioner Type: Progress Notes Filed: 11/08/2022 4:44 PM Note Text: AMBULATORY TELEPHONE VISIT Sherry Vazquez has consented to this telephone encounter. Persons Present: patient Chief Complaint/Reason: Results of bone density test HPI: Sherry is a 67-year-old female who we follow in our office for history of right breast cancer. She was seen for her regular follow-up visit by me on 09/27 and she informed me that she stopped Fosamax in June 2021 due to GI upset. She has started Fosamax by me in March 2021. She has a known diagnosis of osteoporosis. Her bone density test was repeated on 11/01/2022. Data Reviewed: Most recent imaging 11/01/2022-bone density Assessment: (M81.8) Other osteoporosis without current pathological fracture (primary encounter diagnosis) Plan: I discussed with the patient that she had a worsening of her bone density test on 11/01/2022 when compared to her most recent one on 10/28/2020. March 2021 I started her on Fosamax once weekly however she discontinued this in June 2021 due to GI upset. We discussed osteoporosis medications including Prolia and Reclast however she states she needs about $10,000 worth of dental work and is unable to do this. She has agreed to restart Fosamax. I have also encouraged her to continue her vitamin D 5000 units daily as well as 1200 mg of calcium daily. She will return in August, for her annual checkup. She will also discuss this plan of care with her PCP. Total Time Spent: 8 minutes Flor Medina APRN.[facility] 11-08-2022 History of Present illness Narrative AMBULATORY TELEPHONE VISIT Sherry Vazquez has consented to this telephone encounter. Persons Present: patient Chief Complaint/Reason: Results of bone density test HPI: Sherry is a 67-year-old female who we follow in our office for history of right breast cancer. She was seen for her regular follow-up visit by me on 09/27 and she informed me that she stopped Fosamax in June 2021 due to GI upset. She has started Fosamax by me in March 2021. She has a known diagnosis of osteoporosis. Her bone density test was repeated on 11/01/2022. Data Reviewed: Most recent imaging 11/01/2022-bone density Assessment: (M81.8) Other osteoporosis without current pathological fracture (primary encounter diagnosis) Plan: I discussed with the patient that she had a worsening of her bone density test on 11/01/2022 when compared to her most recent one on 10/28/2020. March 2021 I started her on Fosamax once weekly however she discontinued this in June 2021 due to GI upset. We discussed osteoporosis medications including Prolia and Reclast however she states she needs about $10,000 worth of dental work and is unable to do this. She has agreed to restart Fosamax. I have also encouraged her to continue her vitamin D 5000 units daily as well as 1200 mg of calcium daily. She will return in August, for her annual checkup. She will also discuss this plan of care with her PCP. Total Time Spent: 8 minutes Flor Medina APRN.[employer] MACHINE OPERATOR documented in this encounter [facility] 09-27-2022 Note HNO ID: [id number] Author: Flor Medina APRN.CNP Service: ? Author Type: Nurse Practitioner Type: Progress Notes Filed: 09/29/2022 4:16 PM Note Text: HISTORY OF PRESENT ILLNESS: Sherry Vazquez is a 66-year-old female, comes here for follow-up for breast cancer. Previously she was being followed by Dr. Ravi. She felt an abnormality in the right breast which led to a mammogram which was done on 09/22/16. It showed segmental amorphus calcification in the right breast suspicious for malignancy. A stereotactic biopsy was recommended. Right breast ultrasound done on 09/22/16 did not show any abnormality in the right breast. Patient underwent right breast lumpectomy with right axillary sentinel lymph node sampling on 11/08/16. Final pathology report showed invasive lobular carcinoma with lobular carcinoma in situ. Tumor size: 3 x 3 x 1.2 cm. Overall grade 3. Margins involved by lobular carcinoma with tumor extending to the medial, lateral, superior, inferior and posterior margins. LCIS measured 4 x 2 x 1 mm. Grade 2. Focal necrosis present. Closest margin less than 1 mm. DCIS not present. Microcalcification present. Two sentinel lymph nodes negative for metastasis. ER/ID positive and HER-2/blaire not amplified. Patient underwent a right mastectomy on 11/22/16 which did not reveal any residual invasive cancer or LCIS. OncoDx testing was done. Recurrence score result: 18. (Intermediate risk). Patient also has osteoporosis. Bone density was done on 01/16/17. It showed a T score of -2.6 in the AP spine consistent with osteoporosis. She had MRI of the abdomen in 2018 which showed a cystic lesion in the pancreatic tail. Patient is undergoing adjuvant endocrine therapy with Arimidex since December 2016. One year follow-up done in September 2019 shows stability. No plan for further imaging now. Her 2 sisters had breast cancer, father had prostate cancer. Colonoscopy 04/21/2021: - Non-bleeding internal hemorrhoids. -diverticulosis of sigmoid colon - small polyp of hepatic flexure, biopsied and retrieved Pathology Colon, hepatic flexure, polyp, biopsy Tubular adenoma. CURRENT STATUS: She presents today for 6-month follow-up visit clinical exam and discussion of repeat labs. In March 2021 I started her on Fosamax for osteoporosis. A few months after beginning I called her and she was tolerating the medicine well. She reports she took it until June and then stopped it as she thought it might have upset her stomach. Today she reports she feels well, has no new complaints, is happy with her recent surgery on 07/25/[address] Vieira where she received bilateral breast machinist tool and die implants. Her last bone density test was 10/28/2020. She reports she remains active and gets regular weightbearing activity. She denies shortness of breath, cough, fever, chills, headache, diarrhea or constipation. She does continue to take vitamin D and calcium supplements. She was on Arimidex from December 2016 until March 29, 2022. ECOG PERFORMANCE STATUS: 0- Fully active, able to carry on all pre-disease performance w/o restriction. PHYSICAL EXAM: BP 133/70 Pulse 54 Temp (Src) 98.2 (Oral) Resp 16 Ht 4' 9.992 (1.47m) Wt 125 lb 3.2 oz (56.8kg) SpO2 97% BMI 26.17 kg/(m2). CONSTITUTIONAL: Awake, alert, oriented. HEAD (Incl. face): Normocephalic; Atraumatic. EYES: Pupils are reactive. No scleral icterus. HEENT: No oral exudates. No thrush. NECK: No thyromegaly. No JVD. HEMATOLOGY/LYMPHATIC: No petechiae or purpura. RESPIRATORY: Lungs are clear to auscultation. CARDIOVASCULAR: RRR. No murmur or gallop. Breast: Bilateral mastectomy with bilateral machinist tool and die implants present. Incision lines are well-healed. ABDOMEN: Non-tender, soft, no masses. LYMPH: no cervical, axillary adenopathy. EXTREMITIES: No edema INTEGUMENTARY: No rashes. NEURO: alert, oriented, no focal deficits, speech normal. PSYCHIATRIC: Pleasant affect. No signs of agitation. LABS: Component Latest Ref Rng AND Units 09/27/2022 WBC 3.70 - 11.00 k/uL 7.41 RBC 3.90 - 5.20 m/uL 4.61 Hemoglobin 11.5 - 15.5 g/dL 14.5 Hematocrit 36.0 - 46.0 % 43.1 MCV 80.0 - 100.0 fL 93.5 MCH 26.0 - 34.0 pg 31.5 MCHC 30.5 - 36.0 g/dL 33.6 RDW-CV 11.5 - 15.0 % 12.5 Platelet Count 150 - 400 k/uL 343 MPV 9.0 - 12.7 fL 9.5 Neut% % 63.6 Abs Neut (ANC) 1.45 - 7.50 k/uL 4.71 Lymph% % 28.6 Abs Lymph 1.00 - 4.00 k/uL 2.12 Kimble% % 5.9 Abs Kimble <0.87 k/uL 0.44 Eosin% % 1.2 Abs Eosin <0.46 k/uL 0.09 Baso% % 0.4 Abs Baso <0.11 k/uL 0.03 Immature Gran % % 0.3 IMMATURE GRANS (ABS) <0.10 k/uL <0.03 NRBC /100 WBC 0.0 Absolute nRBC <0.01 k/uL <0.01 DTYPE Auto Protein, Total 6.3 - 8.0 g/dL 7.2 Albumin 3.9 - 4.9 g/dL 4.7 Calcium 8.5 - 10.2 mg/dL 10.0 Bilirubin, Total 0.2 - 1.3 mg/dL 0.4 Alkaline Phosphatase 34 - 123 U/L 139 (H) AST 13 - 35 U/L 33 ALT 7 - 38 U/L 33 Glucose 74 - 99 mg/dL 92 BUN 7 - 21 mg/dL 14 (more content not included)... [facility] 09-27-2022 Instructions Flor Medina APRN.CNP - 09/27/2022 1:22 PM EDT BONE MINERAL DENSITY PATIENT INSTRUCTIONS ======== Bone mineral density testing measures the amount of calcium in certain parts of your bones. This information determines how strong your bones are. The test is used to detect osteoporosis, a disease in which the bone's mineral content and density are low, increasing a person's risk of fractures. The lumbar spine (lower back) and the hip are the skeletal sites usually examined. For the test, remember that: 1. You cannot take this test if you are . 2. Eat a normal diet on the day of the test. 3. Take your medications as you normally would. 4. DO NOT take calcium supplements (such as Tums) for 24 hours before the test. 5. On the day of the test, leave valuables (jewelry or credit cards) at home. 6. The test should be performed prior to oral, rectal or IV contrast studies, or at least 7 days after any of these studies. For the test, you may be asked to wear a hospital gown. You will lie on your back, on a padded table, in a comfortable position. Generally, you can resume your usual activities immediately. documented in this encounter [facility] 09-27-2022 History of Present illness Narrative HISTORY OF PRESENT ILLNESS: Sherry Vazquez is a 66-year-old female, comes here for follow-up for breast cancer. Previously she was being followed by Dr. Ravi. She felt an abnormality in the right breast which led to a mammogram which was done on 09/22/16. It showed segmental amorphus calcification in the right breast suspicious for malignancy. A stereotactic biopsy was recommended. Right breast ultrasound done on 09/22/16 did not show any abnormality in the right breast. Patient underwent right breast lumpectomy with right axillary sentinel lymph node sampling on 11/08/16. Final pathology report showed invasive lobular carcinoma with lobular carcinoma in situ. Tumor size: 3 x 3 x 1.2 cm. Overall grade 3. Margins involved by lobular carcinoma with tumor extending to the medial, lateral, superior, inferior and posterior margins. LCIS measured 4 x 2 x 1 mm. Grade 2. Focal necrosis present. Closest margin less than 1 mm. DCIS not present. Microcalcification present. Two sentinel lymph nodes negative for metastasis. ER/ID positive and HER-2/blaire not amplified. Patient underwent a right mastectomy on 11/22/16 which did not reveal any residual invasive cancer or LCIS. OncoDx testing was done. Recurrence score result: 18. (Intermediate risk). Patient also has osteoporosis. Bone density was done on 01/16/17. It showed a T score of -2.6 in the AP spine consistent with osteoporosis. She had MRI of the abdomen in 2018 which showed a cystic lesion in the pancreatic tail. Patient is undergoing adjuvant endocrine therapy with Arimidex since December 2016. One year follow-up done in September 2019 shows stability. No plan for further imaging now. Her 2 sisters had breast cancer, father had prostate cancer. Colonoscopy 04/21/2021: - Non-bleeding internal hemorrhoids. -diverticulosis of sigmoid colon - small polyp of hepatic flexure, biopsied and retrieved Pathology Colon, hepatic flexure, polyp, biopsy Tubular adenoma. CURRENT STATUS: She presents today for 6-month follow-up visit clinical exam and discussion of repeat labs. In March 2021 I started her on Fosamax for osteoporosis. A few months after beginning I called her and she was tolerating the medicine well. She reports she took it until June and then stopped it as she thought it might have upset her stomach. Today she reports she feels well, has no new complaints, is happy with her recent surgery on 07/25/[address] Vieira where she received bilateral breast machinist tool and die implants. Her last bone density test was 10/28/2020. She reports she remains active and gets regular weightbearing activity. She denies shortness of breath, cough, fever, chills, headache, diarrhea or constipation. She does continue to take vitamin D and calcium supplements. She was on Arimidex from December 2016 until March 29, 2022. ECOG PERFORMANCE STATUS: 0- Fully active, able to carry on all pre-disease performance w/o restriction. PHYSICAL EXAM: BP 133/70 Pulse 54 Temp (Src) 98.2 (Oral) Resp 16 Ht 4' 9.992 (1.47m) Wt 125 lb 3.2 oz (56.8kg) SpO2 97% BMI 26.17 kg/(m^2). CONSTITUTIONAL: Awake, alert, oriented. HEAD (Incl. face): Normocephalic; Atraumatic. EYES: Pupils are reactive. No scleral icterus. HEENT: No oral exudates. No thrush. NECK: No thyromegaly. No JVD. HEMATOLOGY/LYMPHATIC: No petechiae or purpura. RESPIRATORY: Lungs are clear to auscultation. CARDIOVASCULAR: RRR. No murmur or gallop. Breast: Bilateral mastectomy with bilateral machinist tool and die implants present. Incision lines are well-healed. ABDOMEN: Non-tender, soft, no masses. LYMPH: no cervical, axillary adenopathy. EXTREMITIES: No edema INTEGUMENTARY: No rashes. NEURO: alert, oriented, no focal deficits, speech normal. PSYCHIATRIC: Pleasant affect. No signs of agitation. LABS: Component Latest Ref Rng & Units 09/27/2022 WBC 3.70 - 11.00 k/uL 7.41 RBC 3.90 - 5.20 m/uL 4.61 Hemoglobin 11.5 - 15.5 g/dL 14.5 Hematocrit 36.0 - 46.0 % 43.1 MCV 80.0 - 100.0 fL 93.5 MCH 26.0 - 34.0 pg 31.5 MCHC 30.5 - 36.0 g/dL 33.6 RDW-CV 11.5 - 15.0 % 12.5 Platelet Count 150 - 400 k/uL 343 MPV 9.0 - 12.7 fL 9.5 Neut% % 63.6 Abs Neut (ANC) 1.45 - 7.50 k/uL 4.71 Lymph% % 28.6 Abs Lymph 1.00 - 4.00 k/uL 2.12 Kimble% % 5.9 Abs Kimble <0.87 k/uL 0.44 Eosin% % 1.2 Abs Eosin <0.46 k/uL 0.09 Baso% % 0.4 Abs Baso <0.11 k/uL 0.03 Immature Gran % % 0.3 IMMATURE GRANS (ABS) <0.10 k/uL <0.03 NRBC /100 WBC 0.0 Absolute nRBC <0.01 k/uL <0.01 DTYPE Auto Protein, Total 6.3 - 8.0 g/dL 7.2 Albumin 3.9 - 4.9 g/dL 4.7 Calcium 8.5 - 10.2 mg/dL 10.0 Bilirubin, Total 0.2 - 1.3 mg/dL 0.4 Alkaline Phosphatase 34 - 123 U/L 139 (H) AST 13 - 35 U/L 33 ALT 7 - 38 U/L 33 Glucose 74 - 99 mg/dL 92 BUN 7 - 21 mg/dL 14 Creatinine 0.58 - 0.96 mg/dL 0.84 Sodium 136 - 144 mmol/L 139 Potassium 3.7 - 5.1 mmol/L 3.5 (L) Chloride 97 - 105 mmol/L 104 CO2 22 - 30 mmol/L 26 Anion Gap 9 - 18 mmol/L 9 eGFR >=60 mL/min/1.73m 76 PATHOLOGY: BCI test results done on 10/08/2021: Predictive results: No (Am I likely to benefit from extended endocrine therapy?) Prognostic result: 6.1% (6.1% risk of late distant recurrence years 5 to 10 years for HR positive lymph node negative patients) RADIOLOGY: DEXA scan 10/28/2020: Findings are compatible with osteoporosis. Significant decreased bone mineral density in the lumbar spine and left hip compared to the prior study, as detailed above. MRI abdomen with and without contrast 09/10/2019: IMPRESSION: Unchanged subcentimeter cystic pancreatic lesions. No enhancing nodular components. Hepatic steatosis. ASSESSMENT / PLAN: 1. Invasive lobular carcinoma with right breast LCIS, BRCA2 mutation. T2 N0. ER/ID positive HER-2/blaire not amplified. OncoDx score 18 (intermediate risk). -s/p bilateral mastectomies (03/22/2017), had undergone prophylactic left breast mastectomy. Patient received adjuvant endocrine therapy with Arimidex December 2016-March,. Dr. Paige previously reviewed BCI test results, she is not likely to benefit from extended endocrine therapy, she agreed to stop Arimidex March,. We will continue surveillance. 2. Osteoporosis. She was on Fasamax 70mg wkly 10/2020, calcium and vitamin D 1200 mg / 600 unit daily. Quit taking fosamax in Jun due to GI side effects. Continue calcium/vit for now. She is due for next DEXA scan in [address] an order for this and have a phone call visit with her afterwards. She is willing to retry the Fosamax if she continues to show osteoporosis. 3. Cystic lesion in the pancreatic tail on MRI done in 2017. One year follow-up done in September 2019 showed stability. No plan for further imaging now. She follows PCP for that. Return visit in 1 year per her request. All documentation from previous visit of 03/29/2022 was copied and pasted, documentation has been reviewed and edited as necessary for today's visit. Flor Medina CNP CC: Yair Lopez DO (NOTE: A voice recognition system was used to dictate this note and as such there may be uncorrected errors in grammar, punctuation, pronoun use, etc. Please disregard these and call us with any questions.) documented in this encounter [facility] 09-27-2022 History of Present illness Narrative General Plastics Review of Systems: Do you have any of the following: Chills, Fatigue, Fever or Night Sweats: no. Ear pain or eye discharge: no. Hearing loss or visual changes: no. Sore throat or chronic cough: no. Shortness of breath: no. Chest pain, swelling, or heart palpitations: no. Abdominal pain: no. Constipation or diarrhea: no. Heartburn or Nausea: no. Rash or skin problems: no. Dizziness or numbness: no. Headaches or Migraines: no. Seizures: no. Joint pain, joint swelling or muscle weakness: no. Bruise or bleed easily: no. Any swollen lymph nodes: no. Have you used any nicotine products in the last 3 months? no. Do you use any cannabis, THC or marijuana containing products? no. Subjective: Sherry Vazquez is an 67 y.o. female who presents for evaluation of ongoing bilateral breast reconstruction. She is satisfied with the size today and may want to leave the expanders in place as permanent implants. Allergies Allergen Reactions *Adhesive Tape Current Outpatient Medications Medication Sig Dispense Refill atorvastatin 20 MG tablet Take 1 tablet by mouth daily. AM Cholecalciferol 125 MCG (5000 UT) per tablet Take 1 tablet by mouth daily. cimetidine 200 MG tablet Take 1 tablet by mouth as needed. hydroCHLOROthiazide 25 MG tablet Take 1 tablet by mouth daily. oxyCODONE-acetaminophen 5-325 MG per tablet Take 1 tablet by mouth every 6 hours as needed for Moderate Pain (Use ONLY as needed for pain) for up to 3 days. 10 tablet 0 No current facility-administered medications for this visit. 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 Bilateral 07/25/2022 Bilateral breast reconstruction w/ tissue expanders & bilateral ADM (80cc initial fill) IMPLANTATION BIOLOGIC IMPLANT FOR SOFT TISSUE REINFORCEMENT ADD-ON PX Bilateral 07/25/2022 Laterality: Bilateral; Surgeon: Kalani Vieira MD; Location: [facility] MASTECTOMY Left 03/2017 MASTECTOMY Right 11/18/2016 BREAST LUMPECTOMY Right 11/08/2016 OOPHORECTOMY Bilateral 2017 Family History Problem Relation Age of Onset Breast Cancer Mother Breast Cancer Sister Social History Socioeconomic History Marital status: Spouse name: Not on file Number of children: Not on file Years of education: Not on file Highest education level: Not on file Occupational History Not on file Tobacco Use Smoking status: Never Smokeless tobacco: Never Vaping Use Vaping Use: Never used Substance and Sexual Activity Alcohol use: Yes Drug use: Never Sexual activity: Not on file Other Topics Concern Not on file Social History Narrative Not on file Social Determinants of Health Financial Resource Strain: Not on file Food Insecurity: Not on file Transportation Needs: Not on file Physical Activity: Not on file Stress: Not on file Social Connections: Not on file Intimate Partner Violence: Not on file Housing Stability: Not on file Review of Systems Pertinent items are noted in HPI. General Plastics Review of Systems: Do you have any of the following: Chills, Fatigue, Fever or Night Sweats: no. Ear pain or eye discharge: no. Hearing loss or visual changes: no. Sore throat or chronic cough: no. Shortness of breath: no. Chest pain, swelling, or heart palpitations: no. Abdominal pain: no. Constipation or diarrhea: no. Heartburn or Nausea: no. Rash or skin problems: no. Dizziness or numbness: no. Headaches or Migraines: no. Seizures: no. Joint pain, joint swelling or muscle weakness: no. Bruise or bleed easily: no. Any swollen lymph nodes: no. Have you used any nicotine products in the last 3 months? no. Do you use any cannabis, THC or marijuana containing products? no. Objective: BP 138/79 (BP Location: Left arm, BP Position: Sitting) Pulse 58 Temp 97.1 F (36.2 C) (Temporal) Ht 1.486 m (4' 10.5 ) Wt 56.9 kg (125 lb 6.4 oz) BMI 25.76 kg/m Smoking Status Never The implants are noted to have some asymmetry with the right implant slightly higher than the left. She has excess dogears on the right side from her previous mastectomy. The ports are palpable. I reviewed massage of the implants with her to help expand the capsule. If she decides to leave the implants in place, we will probably proceed with the next stage of surgery in a few months. She will follow up appropriately. Assessment: Status post bilateral wrist reconstruction with tissue expanders Plan: Follow-up in a few months for the next stage of reconstruction documented in this encounter [facility] 09-21-2022 Miscellaneous Notes Need for new orders, CMP and CBC, for upcoming [facility] appt with Flor Carrasco RN. documented in this encounter [facility] 09-13-2022 History of Present illness Narrative General Plastics Review of Systems: Do you have any of the following: Chills, Fatigue, Fever or Night Sweats: no. Ear pain or eye discharge: no. Hearing loss or visual changes: no. Sore throat or chronic cough: no. Shortness of breath: no. Chest pain, swelling, or heart palpitations: no. Abdominal pain: no. Constipation or diarrhea: no. Heartburn or Nausea: no. Rash or skin problems: no. Dizziness or numbness: no. Headaches or Migraines: no. Seizures: no. Joint pain, joint swelling or muscle weakness: no. Bruise or bleed easily: no. Any swollen lymph nodes: no. Have you used any nicotine products in the last 3 months? no. Do you use any cannabis, THC or marijuana containing products? no. Subjective: Sherry Vazquez is an 67 y.o. female who presents for evaluation of her bilateral reconstruction. She feels she is still asymmetric and wants to discuss the options.. Allergies Allergen Reactions *Adhesive Tape Current Outpatient Medications Medication Sig Dispense Refill atorvastatin 20 MG tablet Take 1 tablet by mouth daily. AM Cholecalciferol 125 MCG (5000 UT) per tablet Take 1 tablet by mouth daily. cimetidine 200 MG tablet Take 1 tablet by mouth as needed. hydroCHLOROthiazide 25 MG tablet Take 1 tablet by mouth daily. oxyCODONE-acetaminophen 5-325 MG per tablet Take 1 tablet by mouth every 6 hours as needed for Moderate Pain (Use ONLY as needed for pain) for up to 3 days. 10 tablet 0 No current facility-administered medications for this visit. 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 Malignant neoplasm of female breast Menopause Osteoporosis Post-menopausal atrophic vaginitis Past Surgical History: Procedure Laterality Date RECONSTRUCTION BREAST TISSUE LITIGATION ATTORNEY ASSOCIATE INCLUDING SUBSEQUENT EXPANDERS Bilateral 07/25/2022 Bilateral breast reconstruction w/ tissue expanders & bilateral ADM (80cc initial fill) IMPLANTATION BIOLOGIC IMPLANT FOR SOFT TISSUE REINFORCEMENT ADD-ON PX Bilateral 07/25/2022 Laterality: Bilateral; Surgeon: Kalani Vieira MD; Location: [facility] MASTECTOMY Left 03/2017 MASTECTOMY Right 11/18/2016 BREAST LUMPECTOMY Right 11/08/2016 OOPHORECTOMY Bilateral 2017 Family History Problem Relation Age of Onset Breast Cancer Mother Breast Cancer Sister Social History Socioeconomic History Marital status: Spouse name: Not on file Number of children: Not on file Years of education: Not on file Highest education level: Not on file Occupational History Not on file Tobacco Use Smoking status: Never Smokeless tobacco: Never Vaping Use Vaping Use: Never used Substance and Sexual Activity Alcohol use: Yes Drug use: Never Sexual activity: Not on file Other Topics Concern Not on file Social History Narrative Not on file Social Determinants of Health Financial Resource Strain: Not on file Food Insecurity: Not on file Transportation Needs: Not on file Physical Activity: Not on file Stress: Not on file Social Connections: Not on file Intimate Partner Violence: Not on file Housing Stability: Not on file Review of Systems Pertinent items are noted in HPI. General Plastics Review of Systems: Do you have any of the following: Chills, Fatigue, Fever or Night Sweats: no. Ear pain or eye discharge: no. Hearing loss or visual changes: no. Sore throat or chronic cough: no. Shortness of breath: no. Chest pain, swelling, or heart palpitations: no. Abdominal pain: no. Constipation or diarrhea: no. Heartburn or Nausea: no. Rash or skin problems: no. Dizziness or numbness: no. Headaches or Migraines: no. Seizures: no. Joint pain, joint swelling or muscle weakness: no. Bruise or bleed easily: no. Any swollen lymph nodes: no. Have you used any nicotine products in the last 3 months? no. Do you use any cannabis, THC or marijuana containing products? no. Objective: BP 143/86 (BP Location: Left arm, BP Position: Sitting) Pulse 67 Temp 97.8 F (36.6 C) (Temporal) Ht 1.486 m (4' 10.5 ) Wt 57.5 kg (126 lb 12.8 oz) BMI 26.05 kg/m Smoking Status Never The patient's right machinist tool and die plate appears higher than her left. I have reviewed her preoperative photos which demonstrated more skin available on her left side than her right. I discussed the options at length with her includin. leaving the expanders in as permanent implants 2. Leaving one machinist tool and die as a permanent implant and replacing the opposite side with a permanent implant after over expanding the tissue 3. Replacing both expanders with permanent implants I recommended expanding both expanders to capacity today (210 mL) and then making a decision at the time of the next appointment. The pts Tissue Expanders were Filled with 50 cc's of Injectable Saline (bilaterally) after prepping the skin with alcohol. She tolerated the procedure well. She is to follow up in 2 Weeks for evaluation and further expansion. Assessment: Ongoing bilateral breast reconstruction Plan: Pt to RETURN in 2 FOR RECHECK. They are encouraged to call in the interim with any problems or questions relating to this encounter. documented in this encounter [facility] 08-30-2022 History of Present illness Narrative General Plastics Review of Systems: Do you have any of the following: Chills, Fatigue, Fever or Night Sweats: no. Ear pain or eye discharge: no. Hearing loss or visual changes: no. Sore throat or chronic cough: no. Shortness of breath: no. Chest pain, swelling, or heart palpitations: no. Abdominal pain: no. Constipation or diarrhea: no. Heartburn or Nausea: no. Rash or skin problems: no. Dizziness or numbness: no. Headaches or Migraines: no. Seizures: no. Joint pain, joint swelling or muscle weakness: no. Bruise or bleed easily: no. Any swollen lymph nodes: no. Have you used any nicotine products in the last 3 months? no. Do you use any cannabis, THC or marijuana containing products? no. Subjective: Sherry Vazquez is an 67 y.o. female who presents for evaluation of bilateral breast reconstruction with tissue expanders. Allergies Allergen Reactions *Adhesive Tape Current Outpatient Medications Medication Sig Dispense Refill atorvastatin 20 MG tablet Take 1 tablet by mouth daily. AM Cholecalciferol 125 MCG (5000 UT) per tablet Take 1 tablet by mouth daily. cimetidine 200 MG tablet Take 1 tablet by mouth as needed. hydroCHLOROthiazide 25 MG tablet Take 1 tablet by mouth daily. oxyCODONE-acetaminophen 5-325 MG per tablet Take 1 tablet by mouth every 6 hours as needed for Moderate Pain (Use ONLY as needed for pain) for up to 3 days. 10 tablet 0 No current facility-administered medications for this visit. 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 Bilateral 07/25/2022 Bilateral breast reconstruction w/ tissue expanders & bilateral ADM (80cc initial fill) IMPLANTATION BIOLOGIC IMPLANT FOR SOFT TISSUE REINFORCEMENT ADD-ON PX Bilateral 07/25/2022 Laterality: Bilateral; Surgeon: Kalani Vieira MD; Location: [facility] MASTECTOMY Left 03/2017 MASTECTOMY Right 11/18/2016 BREAST LUMPECTOMY Right 11/08/2016 OOPHORECTOMY Bilateral 2017 Family History Problem Relation Age of Onset Breast Cancer Mother Breast Cancer Sister Social History Socioeconomic History Marital status: Spouse name: Not on file Number of children: Not on file Years of education: Not on file Highest education level: Not on file Occupational History Not on file Tobacco Use Smoking status: Never Smokeless tobacco: Never Vaping Use Vaping Use: Never used Substance and Sexual Activity Alcohol use: Yes Drug use: Never Sexual activity: Not on file Other Topics Concern Not on file Social History Narrative Not on file Social Determinants of Health Financial Resource Strain: Not on file Food Insecurity: Not on file Transportation Needs: Not on file Physical Activity: Not on file Stress: Not on file Social Connections: Not on file Intimate Partner Violence: Not on file Housing Stability: Not on file Review of Systems Pertinent items are noted in HPI. General Plastics Review of Systems: Do you have any of the following: Chills, Fatigue, Fever or Night Sweats: no. Ear pain or eye discharge: no. Hearing loss or visual changes: no. Sore throat or chronic cough: no. Shortness of breath: no. Chest pain, swelling, or heart palpitations: no. Abdominal pain: no. Constipation or diarrhea: no. Heartburn or Nausea: no. Rash or skin problems: no. Dizziness or numbness: no. Headaches or Migraines: no. Seizures: no. Joint pain, joint swelling or muscle weakness: no. Bruise or bleed easily: no. Any swollen lymph nodes: no. Have you used any nicotine products in the last 3 months? no. Do you use any cannabis, THC or marijuana containing products? no. Objective: BP 145/84 (BP Location: Left arm, BP Position: Sitting) Comment (BP Location): wrist Pulse 63 Temp 98 F (36.7 C) (Temporal) Ht 1.486 m (4' 10.5 ) Wt 56.6 kg (124 lb 11.2 oz) BMI 25.62 kg/m Smoking Status Never The incisions are well approximated. The ports are easily palpable. 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 She tolerated the procedure well. She is to follow up in 2 Weeks for evaluation and further expansion. Assessment: Ongoing breast reconstruction Plan: Pt to RETURN in 2 weeks FOR RECHECK. They are encouraged to call in the interim with any problems or questions relating to this encounter. documented in this encounter [facility] 08-09-2022 History of Present illness Narrative General Plastics Review of Systems: Do you have any of the following: Chills, Fatigue, Fever or Night Sweats: no. Ear pain or eye discharge: no. Hearing loss or visual changes: no. Sore throat or chronic cough: no. Shortness of breath: no. Chest pain, swelling, or heart palpitations: no. Abdominal pain: no. Constipation or diarrhea: no. Heartburn or Nausea: no. Rash or skin problems: no. Dizziness or numbness: no. Headaches or Migraines: no. Seizures: no. Joint pain, joint swelling or muscle weakness: no. Bruise or bleed easily: no. Any swollen lymph nodes: no. Have you used any nicotine products in the last 3 months? no. Do you use any cannabis, THC or marijuana containing products? no. Subjective: Sherry Vazquez is an 67 y.o. female who presents for evaluation of Bilateral reconstruction with tissue expanders. Allergies Allergen Reactions *Adhesive Tape Current Outpatient Medications Medication Sig Dispense Refill atorvastatin 20 MG tablet Take 1 tablet by mouth daily. AM Cholecalciferol 125 MCG (5000 UT) per tablet Take 1 tablet by mouth daily. cimetidine 200 MG tablet Take 1 tablet by mouth as needed. hydroCHLOROthiazide 25 MG tablet Take 1 tablet by mouth daily. oxyCODONE-acetaminophen 5-325 MG per tablet Take 1 tablet by mouth every 6 hours as needed for Moderate Pain (Use ONLY as needed for pain) for up to 3 days. 10 tablet 0 No current facility-administered medications for this visit. 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 Bilateral 07/25/2022 Bilateral breast reconstruction w/ tissue expanders & bilateral ADM (80cc initial fill) IMPLANTATION BIOLOGIC IMPLANT FOR SOFT TISSUE REINFORCEMENT ADD-ON PX Bilateral 07/25/2022 Laterality: Bilateral; Surgeon: Kalani Vieira MD; Location: [facility] MASTECTOMY Left 03/2017 MASTECTOMY Right 11/18/2016 BREAST LUMPECTOMY Right 11/08/2016 OOPHORECTOMY Bilateral 2017 Family History Problem Relation Age of Onset Breast Cancer Mother Breast Cancer Sister Social History Socioeconomic History Marital status: Spouse name: Not on file Number of children: Not on file Years of education: Not on file Highest education level: Not on file Occupational History Not on file Tobacco Use Smoking status: Never Smokeless tobacco: Never Vaping Use Vaping Use: Never used Substance and Sexual Activity Alcohol use: Yes Drug use: Never Sexual activity: Not on file Other Topics Concern Not on file Social History Narrative Not on file Social Determinants of Health Financial Resource Strain: Not on file Food Insecurity: Not on file Transportation Needs: Not on file Physical Activity: Not on file Stress: Not on file Social Connections: Not on file Intimate Partner Violence: Not on file Housing Stability: Not on file Review of Systems Pertinent items are noted in HPI. General Plastics Review of Systems: Do you have any of the following: Chills, Fatigue, Fever or Night Sweats: no. Ear pain or eye discharge: no. Hearing loss or visual changes: no. Sore throat or chronic cough: no. Shortness of breath: no. Chest pain, swelling, or heart palpitations: no. Abdominal pain: no. Constipation or diarrhea: no. Heartburn or Nausea: no. Rash or skin problems: no. Dizziness or numbness: no. Headaches or Migraines: no. Seizures: no. Joint pain, joint swelling or muscle weakness: no. Bruise or bleed easily: no. Any swollen lymph nodes: no. Have you used any nicotine products in the last 3 months? no. Do you use any cannabis, THC or marijuana containing products? no. Objective: BP 126/77 (BP Location: Left arm, BP Position: Sitting) Pulse 63 Temp 97.3 F (36.3 C) (Temporal) Ht 1.486 m (4' 10.5 ) Wt 56.4 kg (124 lb 6.4 oz) BMI 25.56 kg/m Smoking Status Never She denies any problems. The incisions are well approximated. The ports are easily palpable. Her limitations in activity was reviewed. She can begin to shower and drive We can consider tissue expansion at the next appointment Assessment: Status post bilateral reconstruction following mastectomy Plan: Pt to RETURN in 2-3 weeks FOR RECHECK. They are encouraged to call in the interim with any problems or questions relating to this encounter. documented in this encounter [facility] 2022 History of Present illness Narrative General Plastics Review of Systems: Do you have any of the following: Chills, Fatigue, Fever or Night Sweats: no. Ear pain or eye discharge: no. Hearing loss or visual changes: no. Sore throat or chronic cough: no. Shortness of breath: no. Chest pain, swelling, or heart palpitations: no. Abdominal pain: no. Constipation or diarrhea: no. Heartburn or Nausea: no. Rash or skin problems: no. Dizziness or numbness: no. Headaches or Migraines: no. Seizures: no. Joint pain, joint swelling or muscle weakness: no. Bruise or bleed easily: no. Any swollen lymph nodes: no. Have you used any nicotine products in the last 3 months? no. Do you use any cannabis, THC or marijuana containing products? no. Subjective: Sherry Vazquez is an 67 y.o. female who presents for evaluation of S/p 07/25/2022 bilateral tissue expanders. Allergies Allergen Reactions *Adhesive Tape Current Outpatient Medications Medication Sig Dispense Refill atorvastatin 20 MG tablet Take 1 tablet by mouth daily. AM Cholecalciferol 125 MCG (5000 UT) per tablet Take 1 tablet by mouth daily. cimetidine 200 MG tablet Take 1 tablet by mouth as needed. hydroCHLOROthiazide 25 MG tablet Take 1 tablet by mouth daily. oxyCODONE-acetaminophen 5-325 MG per tablet Take 1 tablet by mouth every 6 hours as needed for Moderate Pain (Use ONLY as needed for pain) for up to 3 days. 10 tablet 0 No current facility-administered medications for this visit. 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 Bilateral 07/25/2022 Bilateral breast reconstruction w/ tissue expanders & bilateral ADM (80cc initial fill) IMPLANTATION BIOLOGIC IMPLANT FOR SOFT TISSUE REINFORCEMENT ADD-ON PX Bilateral 07/25/2022 Laterality: Bilateral; Surgeon: Kalani Vieira MD; Location: [facility] MASTECTOMY Left 03/2017 MASTECTOMY Right 11/18/2016 BREAST LUMPECTOMY Right 11/08/2016 OOPHORECTOMY Bilateral 2016 Family History Problem Relation Age of Onset Breast Cancer Mother Breast Cancer Sister Social History Socioeconomic History Marital status: Spouse name: Not on file Number of children: Not on file Years of education: Not on file Highest education level: Not on file Occupational History Not on file Tobacco Use Smoking status: Never Smokeless tobacco: Never Vaping Use Vaping Use: Never used Substance and Sexual Activity Alcohol use: Yes Drug use: Never Sexual activity: Not on file Other Topics Concern Not on file Social History Narrative Not on file Social Determinants of Health Financial Resource Strain: Not on file Food Insecurity: Not on file Transportation Needs: Not on file Physical Activity: Not on file Stress: Not on file Social Connections: Not on file Intimate Partner Violence: Not on file Housing Stability: Not on file Review of Systems Pertinent items are noted in HPI. General Plastics Review of Systems: Do you have any of the following: Chills, Fatigue, Fever or Night Sweats: no. Ear pain or eye discharge: no. Hearing loss or visual changes: no. Sore throat or chronic cough: no. Shortness of breath: no. Chest pain, swelling, or heart palpitations: no. Abdominal pain: no. Constipation or diarrhea: no. Heartburn or Nausea: no. Rash or skin problems: no. Dizziness or numbness: no. Headaches or Migraines: no. Seizures: no. Joint pain, joint swelling or muscle weakness: no. Bruise or bleed easily: no. Any swollen lymph nodes: no. Have you used any nicotine products in the last 3 months? no. Do you use any cannabis, THC or marijuana containing products? no. Objective: BP 145/77 (BP Location: Left arm, BP Position: Sitting) Pulse 56 Temp 97.5 F (36.4 C) (Temporal) Ht 1.486 m (4' 10.5 ) Wt 56.5 kg (124 lb 9.6 oz) BMI 25.60 kg/m Smoking Status Never The patient's tissue machinist tool and die are in appropriate position. The fill ports are palpable. There is no evidence of infection. She does have some asymmetry however this may be attributed to the diminished amount of skin and soft tissue present on the right side as compared to the left. The dressings were changed. She is cautioned against exercise, lifting, or extreme use of her arms. She also needs to continue with elevation of her back. He was given the information on both the implants and the ADM Assessment: Is post bilateral reconstruction with tissue expanders and ADM Plan: Pt to RETURN in 1 week FOR RECHECK. They are encouraged to call in the interim with any problems or questions relating to this encounter. documented in this encounter [facility] 07-25-2022 Nurse Note Called in to OR [address] Vieira to give pt 1 percocet 5/325mg one time for pain. This nurse transfers patient from PACU to [facility]. Patient's family is at bedside. Bedside report and anesthesia SBAR is given to Cata SANDOVAL. Patient is alert, oriented and stable. Cart is locked, in lowest position and call light is in reach of patient Transferred to PACU via bed with this nurse and FRANCISCO Gray. Bedside report given to JAIME Barreto OR temp 67deg F OR humidity 47% documented in this encounter [facility] 07-25-2022 Nurse Surgical operation note Called in to OR [address] Vieira to give pt 1 percocet 5/325mg one time for pain. [facility] 07-25-2022 Hospital Discharge instructions Kalani Vieira MD - 07/25/2022 12:51 PM EST Follow instructions given in the office. Use the incentive spirometer 3-4 x a day documented in this encounter [facility] 07-25-2022 Nurse Surgical operation note This nurse transfers patient from PACU to [place] [facility]. Patient's family is at bedside. Bedside report and anesthesia SBAR is given to Cata SANDOVAL. Patient is alert, oriented and stable. Cart is locked, in lowest position and call light is in reach of patient [facility] 07-25-2022 Note Formatting of this n ote is different from the original. POST OPERATIVE/PROCEDURE NOTE Sherry Vazquez ([id number]) SURGEON Surgeon(s) and Role: * Kalani Vieira MD - Primary GEOSCIENCE LABORATORY TECHNICIAN [facility] ANESTHESIOLOGIST MANAGER EMERGENCY DEPARTMENT: Renuka Newton APRN-MANAGER EMERGENCY DEPARTMENT; Isaac Lynn APRN-MANAGER EMERGENCY DEPARTMENT SURGICAL STAFF Medical Artist: Kenna Jaime RN; Brenda Frenando RN; Lucy Guerrero RN Scrub Person: Yulisa Riggs Publications Designer Hims Manager: Apryl Vásquez PROCEDURE PERFORMED Bilateral breast reconstruction with tissue expanders (80cc initial fill) and Acellular Dermal Matrix Bilaterally. 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 POST OPERATIVE/PROCEDURE NOTE Sherry Vazquez ([id number]) SURGEON Surgeon(s) and Role: * Kalani Vieira MD - Primary GEOSCIENCE LABORATORY TECHNICIAN [facility] ANESTHESIOLOGIST MANAGER EMERGENCY DEPARTMENT: Renuka Newton APRN-MANAGER EMERGENCY DEPARTMENT; DIMPLE Johns SURGICAL STAFF Medical Artist: Kenna Jaime RN; Brenda Fernando RN; Lucy Guerrero RN Scrub Person: Yulisa [facility] CenterBankofpoker Publications Designer Hims Manager: Apryl Vásquez PROCEDURE PERFORMED Bilateral breast reconstruction with tissue expanders (80cc initial fill) and Acellular Dermal Matrix Bilaterally. 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.13] * Personal history of malignant neoplasm of breast [Z85.3] FINDINGS none CONDITION OF PATIENT stable COMPLICATIONS None GRAFTS AND/OR IMPLANTS See OR Nursing Documentation SPECIMENS No specimen sent * No specimens in log * Kalani Vieira MD July 25, 2022 12:23 PM [facility] 07-25-2022 Miscellaneous Notes POST OPERATIVE/PROCEDURE NOTE Sherry Vazquez ([id number]) SURGEON Surgeon(s) and Role: * Kalani Vieira MD - Primary GEOSCIENCE LABORATORY TECHNICIAN [facility] ANESTHESIOLOGIST MANAGER EMERGENCY DEPARTMENT: CATRACHO UrbinaMANAGER EMERGENCY DEPARTMENT; DIMPLE Johns SURGICAL STAFF Medical Artist: Kenna Jaime RN; Brenda Fernando RN; Lucy Guerrero RN Scrub Person: Yulisa Riggs Publications Designer Hims Manager: Apryl Vásquez PROCEDURE PERFORMED Bilateral breast reconstruction with tissue expanders (80cc initial fill) and Acellular Dermal Matrix Bilaterally. 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 Bedside report given to JAIME Barreto [facility] 07-25-2022 Nurse Surgical operation note OR temp 67deg F OR humidity 47% [facility] 07-25-2022 History and physical note Subjective: Sherry Vazquez is an 66 y.o. female who presents for evaluation of Bilateral absence breasts. 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 Allergies Allergen Reactions *Adhesive Tape Social History Socioeconomic History Marital status: Spouse name: Not on file Number of children: Not on file Years of education: Not on file Highest education level: Not on file Occupational History Not on file Tobacco Use Smoking status: Never Smokeless tobacco: Never Vaping Use Vaping Use: Never used Substance and Sexual Activity Alcohol use: Yes Drug use: Never Sexual activity: Not on file Other Topics Concern Not on file Social History Narrative Not on file Social Determinants of Health Financial Resource Strain: Not on file Food Insecurity: Not on file Transportation Needs: Not on file Physical Activity: Not on file Stress: Not on file Social Connections: Not on file Intimate Partner Violence: Not on file Housing Stability: Not on file Review of Systems Pertinent items are noted in HPI. Objective: BP 141/78 (BP Location: Left arm, BP Position: Sitting) Pulse 67 Ht 1.486 m (4' 10.5 ) Wt 55.3 kg (122 lb) SpO2 97% BMI 25.06 kg/m Smoking Status Never General: alert, cooperative, no distress, appears stated age Skin: Acquired absence of breasts Eyes: conjunctivae/corneas clear. PERRL, EOM's intact. Mouth: MMM no lesions Lymph Nodes: Cervical, supraclavicular, and axillary nodes normal. Lungs: clear to auscultation bilaterally Heart: regular rate and rhythm, S1, S2 normal, no murmur Abdomen: soft, non-tender. No masses, no organomegaly Extremities: extremities normal, atraumatic, no edema Neurologic: negative Psychiatric: non focal. Judgement and Affect WNL. Assessment: Bilateral acquired breast absence Plan: 1. Discussed the risk of surgery including bleeding, infection, pain, numbness, assymetry, need for further surgry, scar tissue, DVT, and even . The patient voices Understanding of the risks, any and all questions were answered to the patient's satisfaction. 2. Proposed procedure for bilateral reconstruction with tissue expanders [facility] 07-25-2022 History and physical note Subjective: Sherry Vazquez is an 66 y.o. female who presents for evaluation of Bilateral absence breasts. 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 Allergies Allergen Reactions *Adhesive Tape Social History Socioeconomic History Marital status: Spouse name: Not on file Number of children: Not on file Years of education: Not on file Highest education level: Not on file Occupational History Not on file Tobacco Use Smoking status: Never Smokeless tobacco: Never Vaping Use Vaping Use: Never used Substance and Sexual Activity Alcohol use: Yes Drug use: Never Sexual activity: Not on file Other Topics Concern Not on file Social History Narrative Not on file Social Determinants of Health Financial Resource Strain: Not on file Food Insecurity: Not on file Transportation Needs: Not on file Physical Activity: Not on file Stress: Not on file Social Connections: Not on file Intimate Partner Violence: Not on file Housing Stability: Not on file Review of Systems Pertinent items are noted in HPI. Objective: BP 141/78 (BP Location: Left arm, BP Position: Sitting) Pulse 67 Ht 1.486 m (4' 10.5 ) Wt 55.3 kg (122 lb) SpO2 97% BMI 25.06 kg/m Smoking Status Never General: alert, cooperative, no distress, appears stated age Skin: Acquired absence of breasts Eyes: conjunctivae/corneas clear. PERRL, EOM's intact. Mouth: MMM no lesions Lymph Nodes: Cervical, supraclavicular, and axillary nodes normal. Lungs: clear to auscultation bilaterally Heart: regular rate and rhythm, S1, S2 normal, no murmur Abdomen: soft, non-tender. No masses, no organomegaly Extremities: extremities normal, atraumatic, no edema Neurologic: negative Psychiatric: non focal. Judgement and Affect WNL. Assessment: Bilateral acquired breast absence Plan: 1. Discussed the risk of surgery including bleeding, infection, pain, numbness, assymetry, need for further surgry, scar tissue, DVT, and even . The patient voices Understanding of the risks, any and all questions were answered to the patient's satisfaction. 2. Proposed procedure for bilateral reconstruction with tissue expanders documented in this encounter [facility] 07-12-2022 History of Present illness Narrative General Plastics Review of Systems: Do you have any of the following: Chills, Fatigue, Fever or Night Sweats: no. Ear pain or eye discharge: no. Hearing loss or visual changes: no. Sore throat or chronic cough: no. Shortness of breath: no. Chest pain, swelling, or heart palpitations: no. Abdominal pain: no. Constipation or diarrhea: no. Heartburn or Nausea: Heartburn. Rash or skin problems: no. Dizziness or numbness: no. Headaches or Migraines: no. Seizures: no. Joint pain, joint swelling or muscle weakness: no. Bruise or bleed easily: no. Any swollen lymph nodes: no. Have you used any nicotine products in the last 3 months? no. Do you use any cannabis, THC or marijuana containing products? no. Are you currently taking the medication Adipex? no. Subjective: Sherry Vazquez is an 66 y.o. female who presents Evaluation and further preoperative preparation for the upcoming bilateral breast reconstruction with tissue expanders. He has been medically cleared by her PCP. She has no history of radiation Allergies Allergen Reactions *Adhesive Tape Current Outpatient Medications Medication Sig Dispense Refill atorvastatin 20 MG tablet Take 1 tablet by mouth daily. Cholecalciferol 125 MCG (5000 UT) per tablet Take 1 tablet by mouth daily. cimetidine 200 MG tablet Take 1 tablet by mouth as needed. hydroCHLOROthiazide 25 MG tablet cephALEXin 500 MG capsule Take 1 capsule by mouth 2 times daily for 7 days. 14 capsule 0 oxyCODONE-acetaminophen 5-325 MG per tablet Take 1 tablet by mouth every 6 hours as needed for Moderate Pain (Use ONLY as needed for pain) for up to 3 days. 8 tablet 0 No current facility-administered medications for this visit. 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 Malignant neoplasm of female breast Menopause Osteoporosis Post-menopausal atrophic vaginitis Past Surgical History: Procedure Laterality Date MASTECTOMY Left 03/2017 MASTECTOMY Right 11/18/2016 BREAST LUMPECTOMY Right 11/08/2016 OOPHORECTOMY 2017 Family History Problem Relation Age of Onset Breast Cancer Mother Breast Cancer Sister Social History Socioeconomic History Marital status: Spouse name: Not on file Number of children: Not on file Years of education: Not on file Highest education level: Not on file Occupational History Not on file Tobacco Use Smoking status: Never Smokeless tobacco: Never Substance and Sexual Activity Alcohol use: Yes Drug use: Never Sexual activity: Not on file Other Topics Concern Not on file Social History Narrative Not on file Social Determinants of Health Financial Resource Strain: Not on file Food Insecurity: Not on file Transportation Needs: Not on file Physical Activity: Not on file Stress: Not on file Social Connections: Not on file Intimate Partner Violence: Not on file Housing Stability: Not on file Review of Systems Pertinent items are noted in HPI. General Plastics Review of Systems: Do you have any of the following: Chills, Fatigue, Fever or Night Sweats: no. Ear pain or eye discharge: no. Hearing loss or visual changes: no. Sore throat or chronic cough: no. Shortness of breath: no. Chest pain, swelling, or heart palpitations: no. Abdominal pain: no. Constipation or diarrhea: no. Heartburn or Nausea: Heartburn. Rash or skin problems: no. Dizziness or numbness: no. Headaches or Migraines: no. Seizures: no. Joint pain, joint swelling or muscle weakness: no. Bruise or bleed easily: no. Any swollen lymph nodes: no. Have you used any nicotine products in the last 3 months? no. Do you use any cannabis, THC or marijuana containing products? no. Are you currently taking the medication Adipex? no. Objective: BP 114/62 Pulse 58 Temp 97.1 F (36.2 C) (Temporal) Ht 1.473 m (4' 10 ) Wt 56.2 kg (124 lb) BMI 25.92 kg/m Smoking Status Never Acquired absence of breasts bilaterally. She has well-healed incisions with lateral dogears. She has atrophic skin at the midportion of the mastectomy site on the right. The procedure of Bilateral breast reconstruction using tissue expanders and possible use of acellular dermal matrix Was thoroughly reviewed with the patient. The reasonable expected outcome was reviewed. The expected Pre-, Intra-, and Post- Operative Course was reviewed. The Pre- and Post-Operative Instructions were reviewed in addition to the medications to avoid before surgery. The patient was given the following scripts (which were also reviewed): Keflex and Percocet Measurements and Sizing were performed as applicable. The Potential Risks and Complications were reviewed as was the Consent for Surgery. The RISKS, BENEFITS, POTENTIAL COMPLICATIONS, and ALTERNATIVES OF TREATMENT were reviewed. The POTENTIAL COMPLICATIONS were reviewed which include (but are not exclusive of) bleeding, infection, pain, numbness, assymmetry, scar tissue, skin necrosis, the need for further surgery, DVT, and even . The patient was given ample opportunity to ask questions. The patient voices understanding. The patient is encouraged to call with any further questions or problems encountered before or after the proposed procedure. Assessment: Acquired absence breasts bilaterally status post mastectomy Plan: We will proceed with surgery in the near future and she is encouraged to call with any questions documented in this encounter [facility] 06-21-2022 History of Present illness Narrative General Plastics Review of Systems: Do you have any of the following: Chills, Fatigue, Fever or Night Sweats: no. Ear pain or eye discharge: no. Hearing loss or visual changes: no. Sore throat or chronic cough: no. Shortness of breath: no. Chest pain, swelling, or heart palpitations: no. Abdominal pain: no. Constipation or diarrhea: no. Heartburn or Nausea: Heartburn. Rash or skin problems: no. Dizziness or numbness: no. Headaches or Migraines: no. Seizures: no. Joint pain, joint swelling or muscle weakness: no. Bruise or bleed easily: no. Any swollen lymph nodes: no. Have you used any nicotine products in the last 3 months? no. Do you use any cannabis, THC or marijuana containing products? no. Are you currently taking the medication Adipex? no. Subjective: Sherry Vazquez is an 66 y.o. female who presents for preoperative planning of the anticipated bilateral breast reconstruction with tissue expanders.. No Known Allergies Current Outpatient Medications Medication Sig Dispense Refill atorvastatin 20 MG tablet Take 20 mg by mouth daily. Cholecalciferol 125 MCG (5000 UT) per tablet Take 5,000 Units by mouth daily. cimetidine 200 MG tablet Take 200 mg by mouth as needed. hydroCHLOROthiazide 25 MG tablet No current facility-administered medications for this visit. 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 Malignant neoplasm of female breast Menopause Osteoporosis Post-menopausal atrophic vaginitis Past Surgical History: Procedure Laterality Date MASTECTOMY Left 03/2017 MASTECTOMY Right 11/18/2016 BREAST LUMPECTOMY Right 11/08/2016 OOPHORECTOMY 2017 Family History Problem Relation Age of Onset Breast Cancer Mother Breast Cancer Sister Social History Socioeconomic History Marital status: Spouse name: Not on file Number of children: Not on file Years of education: Not on file Highest education level: Not on file Occupational History Not on file Tobacco Use Smoking status: Never Smokeless tobacco: Never Substance and Sexual Activity Alcohol use: Yes Drug use: Never Sexual activity: Not on file Other Topics Concern Not on file Social History Narrative Not on file Social Determinants of Health Financial Resource Strain: Not on file Food Insecurity: Not on file Transportation Needs: Not on file Physical Activity: Not on file Stress: Not on file Social Connections: Not on file Intimate Partner Violence: Not on file Housing Stability: Not on file Review of Systems Pertinent items are noted in HPI. General Plastics Review of Systems: Do you have any of the following: Chills, Fatigue, Fever or Night Sweats: no. Ear pain or eye discharge: no. Hearing loss or visual changes: no. Sore throat or chronic cough: no. Shortness of breath: no. Chest pain, swelling, or heart palpitations: no. Abdominal pain: no. Constipation or diarrhea: no. Heartburn or Nausea: Heartburn. Rash or skin problems: no. Dizziness or numbness: no. Headaches or Migraines: no. Seizures: no. Joint pain, joint swelling or muscle weakness: no. Bruise or bleed easily: no. Any swollen lymph nodes: no. Have you used any nicotine products in the last 3 months? no. Do you use any cannabis, THC or marijuana containing products? no. Are you currently taking the medication Adipex? no. Objective: BP 151/79 Pulse 64 Temp 98.2 F (36.8 C) (Temporal) Ht 1.473 m (4' 10 ) Wt 56.2 kg (124 lb) BMI 25.92 kg/m Smoking Status Never Patient with excess skin laterally on the chest wall following bilateral mastectomy. The incisions were reviewed with her. The procedure of bilateral reconstruction with tissue expanders and possible use of ADM was thoroughly reviewed with the patient. The patient's goals and expectation for the surgery were reviewed, as well as the reasonable expected outcome. The expected pre-, intra-, and post- operative course was reviewed. The pt was given copies of Pre- and Post-Operative Instructions to review as well as a Consent specific to their procedure if available. The need for medical clearance was also reviewed with them. She was measured for a tissue machinist tool and die and based on the width of her chest wall, we chose [id number] or the machinist tool and die. Assessment: The patient for scheduled tissue machinist tool and die Placement bilaterally Plan: We will proceed with surgery in the near future. She is to get her medical clearance. documented in this encounter [facility] 04-27-2022 History of Present illness Narrative General Plastics Review of Systems: Do you have any of the following: Chills, Fatigue, Fever or Night Sweats: no. Ear pain or eye discharge: no. Hearing loss or visual changes: no. Sore throat or chronic cough: no. Shortness of breath: no. Chest pain, swelling, or heart palpitations: no. Abdominal pain: no. Constipation or diarrhea: no. Heartburn or Nausea: Heartburn. Rash or skin problems: no. Dizziness or numbness: no. Headaches or Migraines: no. Seizures: no. Joint pain, joint swelling or muscle weakness: no. Bruise or bleed easily: no. Any swollen lymph nodes: no. Have you used any nicotine products in the last 3 months? no. Do you use any cannabis, THC or marijuana containing products? no. Are you currently taking the medication Adipex? no. Subjective: Sherry Vazquez is an 66 y.o. female who presents for evaluation today for a breast reconstruction consult. She had a right breast mastectomy on 11/18/16 following a lumpectomy of the right breast on 11/08/16. She then had a left mastectomy in March of 2017. She did not have any radiation or chemotherapy. No Known Allergies Current Outpatient Medications Medication Sig Dispense Refill cimetidine 200 MG tablet Take 200 mg by mouth as needed. atorvastatin 20 MG tablet Take 20 mg by mouth daily. Cholecalciferol 125 MCG (5000 UT) per tablet Take 5,000 Units by mouth daily. esomeprazole 20 MG Recon Soln 20 mg by Intravenous route. hydroCHLOROthiazide 25 MG tablet No current facility-administered medications for this visit. 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 Malignant neoplasm of female breast Menopause Osteoporosis Post-menopausal atrophic vaginitis Past Surgical History: Procedure Laterality Date MASTECTOMY Left 03/2017 MASTECTOMY Right 11/18/2016 BREAST LUMPECTOMY Right 11/08/2016 OOPHORECTOMY 2017 Family History Problem Relation Age of Onset Breast Cancer Mother Breast Cancer Sister Social History Socioeconomic History Marital status: Spouse name: Not on file Number of children: Not on file Years of education: Not on file Highest education level: Not on file Occupational History Not on file Tobacco Use Smoking status: Never Smokeless tobacco: Never Substance and Sexual Activity Alcohol use: Yes Drug use: Never Sexual activity: Not on file Other Topics Concern Not on file Social History Narrative Not on file Social Determinants of Health Financial Resource Strain: Not on file Food Insecurity: Not on file Transportation Needs: Not on file Physical Activity: Not on file Stress: Not on file Social Connections: Not on file Intimate Partner Violence: Not on file Housing Stability: Not on file Review of Systems Pertinent items are noted in HPI. General Plastics Review of Systems: Do you have any of the following: Chills, Fatigue, Fever or Night Sweats: no. Ear pain or eye discharge: no. Hearing loss or visual changes: no. Sore throat or chronic cough: no. Shortness of breath: no. Chest pain, swelling, or heart palpitations: no. Abdominal pain: no. Constipation or diarrhea: no. Heartburn or Nausea: Heartburn. Rash or skin problems: no. Dizziness or numbness: no. Headaches or Migraines: no. Seizures: no. Joint pain, joint swelling or muscle weakness: no. Bruise or bleed easily: no. Any swollen lymph nodes: no. Have you used any nicotine products in the last 3 months? no. Do you use any cannabis, THC or marijuana containing products? no. Are you currently taking the medication Adipex? no. Objective: BP 130/81 Pulse 63 Temp 97.4 F (36.3 C) (Temporal) Ht 1.473 m (4' 10 ) Wt 54.9 kg (121 lb) BMI 25.29 kg/m Smoking Status Never Patient with moderate lateral dog ears bilaterally. She has atrophic skin in the medial aspect of the incision on the right mastectomy site. The skin envelope on the left side is satisfactory. There are no palpable masses. Pertinent reconstruction options were presented as outlined below. Based on this discussion, the patient would like to proceed with reconstruction with tissue machinist tool and die A detailed conversation was had regarding the patient s options for breast reconstruction. Five main points, which are explained to all breast reconstruction patients, were discussed. 1) Breast reconstruction is an optional process. In addition, breast reconstruction can be performed in an immediate and delayed fashion. Even if a patient does not opt for reconstruction now, it can performed at a later time. 2) Breast reconstruction is a multi-stage process which involves multiple surgeries spaced several months apart. The entire process can take over one year. The patient can stop within this process and/or resume it again at any time. 3) The major goal of breast reconstruction is to have the patient look normal in clothing. When naked, there will always be scars and other stigmata of the breast reconstruction process. 4) Asymmetries are often present during the reconstruction process. Several operations may be needed, including surgery to the non-cancerous breast, to achieve satisfactory results. 5) No matter the reconstructive method, there are ways that the reconstruction can fail and a secondary reconstructive plan would need to be created. Next, a general discussion regarding all available methods of breast reconstruction were discussed. The types of reconstructions described included: 1) Tissue machinist tool and die and implant based reconstruction, both single and multi-stage approaches. 2) Autologous only reconstructions which would require incisions and surgery at a second site on her body. This would require tissue hospitalization and a longer surgery 3) Combination procedures, particularly latissismus dorsi flaps combined with either expanders or implants. For each of the reconstruction methods mentioned above, the risks, benefits, alternatives, scarring, and recovery time were discussed in great detail. Specific risks detailed included bleeding, infection, hematoma, seroma, scarring, pain, wound healing complications, flap loss, fat necrosis, capsular contracture, need for implant removal, donor site complications, bulge, hernia, umbilical necrosis, need for urgent reoperation, and need for dressing changes were discussed. 60 minutes were spent with the patient, of which over half were counseling and coordination of care. Assessment: Pt for consideration of bilateral reconstruction Plan: She will consider the above and discussed with her family. I've asked her to call us if she would like to further coordinate going forward. documented in this encounter [facility] 04-12-2022 History of Present illness Narrative Sherry is a 66 year old who presents for an annual gynecologic exam without complaints. Feels better after 2.5 years of medical issues. Postmenopausal: yes HRT use: No. 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 LMP: Postmenopausal Age at Menarche: Age at First : Age at Menopause: Comparator Operator History Comments: Sexual Activity: Yes; Male Contraception: Tubal Ligation PAST MEDICAL HISTORY Diagnosis Date BRCA2 positive 12/2016 Breast cancer (HCC) 10/2016 right Hyperlipidemia Hyperlipidemia Hypertension PAST SURGICAL HISTORY Procedure Laterality Date ABDOMINAL SURGERY HX BREAST BIOPSY Right 10/2016 BREAST LUMPECTOMY HX Right 10/2016 BREAST SURGERY HX COLONOSCOPY FLX DX W/COLLJ SPEC WHEN PFRMD 04/21/2021 MASTECTOMY HX Right 11/22/2016 MASTECTOMY HX 03/2017 Prophylactic SALPINGO-OOPHORECTOMY COMPL/PRTL UNI/BI SPX Bilateral 03/22/2017 laprascopic BSO, prophylactic TUBAL LIGATION HX FAMILY HISTORY Problem Relation Age of Onset Heart Attack Sister 55 Heart Mother Endometrial ca also [Abida Weldon] Breast Cancer Mother 85 Prostate Cancer Father Breast Cancer Sister at age 32 Breast Cancer Sister at age 45 Colon Cancer Paternal Grandfather other (BRCA2 mutated) Other SOCIAL HISTORY Social History Tobacco Use Smoking status: Never Smokeless tobacco: Never Vaping Use Vaping Use: Never used Substance Use Topics Alcohol use: Yes Alcohol/week: 15.0 standard drinks Types: 6 Cans of Beer (12oz) per week Comment: occasionally Drug use: No REVIEW OF SYSTEMS Abdomen: No abdominal pain, nausea, vomiting, diarrhea, or constipation. No bloating, early satiety, indigestion, or increased flatulence. Bladder: No dysuria, gross hematuria, urinary frequency, urinary urgency, or incontinence Breast: No breast lumps, nipple d/c, overlying skin changes, redness or skin retraction Allergies and current medication updated:Yes EXAM: BP 110/72 Ht 4' 10 (1.47m) Wt 123 lb (55.8kg) BMI 25.71 kg/(m^2). GENERAL: pleasant, female in no apparent distress HEENT: Normocephalic, atraumatic, mucus membranes moist, and no lesions NECK: Supple, full range of motion, no adenopathy, and thyroid normal DERMATOLOGY: Normal, without lesions, non-icteric, and non-hirsute BREAST: absent bilaterally, scars intact. no masses noted CHEST: Normal inspiratory effort ABDOMEN: soft, non-tender, and no masses PELVIC: external genitalia normal, normal Bartholin's glands, urethra, Painter's glands, no vulvar lesions, no cervical lesions, physiologic discharge present, normal appearing perineal body and perianal region, cystocele 1st degree, atrophic flattened epithelium BIMANUAL: uterus normal size, shape and consistency, no adnexal masses, and non-tender RECTOVAGINAL: deferred. NEURO: alert and oriented x3,exam grossly non-focal EXTREMITIES: normal ASSESSMENT/PLAN: 1) Health maintenance: Pap/HPV screening no longer needed mammogram no longer needed colonoscopy up to date 2) Follow up one year or sooner as needed Analia Whitten MD documented in this encounter [facility] 03-29-2022 Miscellaneous Notes Faxed referral to Dr. Deysi Vieira. Awaiting appt. Date/time. documented in this encounter [facility] 03-29-2022 History of Present illness Narrative HISTORY OF PRESENT ILLNESS: Sherry Vazquez is a 66-year-old female, comes here for follow-up for breast cancer. Previously she was being followed by Dr. Ravi. She felt an abnormality in the right breast which led to a mammogram which was done on 09/22/16. It showed segmental amorphus calcification in the right breast suspicious for malignancy. A stereotactic biopsy was recommended. Right breast ultrasound done on 09/22/16 did not show any abnormality in the right breast. Patient underwent right breast lumpectomy with right axillary sentinel lymph node sampling on 11/08/16. Final pathology report showed invasive lobular carcinoma with lobular carcinoma in situ. Tumor size: 3 x 3 x 1.2 cm. Overall grade 3. Margins involved by lobular carcinoma with tumor extending to the medial, lateral, superior, inferior and posterior margins. LCIS measured 4 x 2 x 1 mm. Grade 2. Focal necrosis present. Closest margin less than 1 mm. DCIS not present. Microcalcification present. Two sentinel lymph nodes negative for metastasis. ER/ID positive and HER-2/blaire not amplified. Patient underwent a right mastectomy on 11/22/16 which did not reveal any residual invasive cancer or LCIS. OncoDx testing was done. Recurrence score result: 18. (Intermediate risk). Patient also has osteoporosis. Bone density was done on 01/16/17. It showed a T score of -2.6 in the AP spine consistent with osteoporosis. She had MRI of the abdomen in 2018 which showed a cystic lesion in the pancreatic tail. Patient is undergoing adjuvant endocrine therapy with Arimidex since December 2016. One year follow-up done in September 2019 shows stability. No plan for further imaging now. Her 2 sisters had breast cancer, father had prostate cancer. Colonoscopy 04/21/2021: - Non-bleeding internal hemorrhoids. -diverticulosis of sigmoid colon - small polyp of hepatic flexure, biopsied and retrieved Pathology Colon, hepatic flexure, polyp, biopsy Tubular adenoma. CURRENT STATUS: She is here for follow-up, doing very well, claims to be physically active, no weight loss, no shortness of breath, cough, fever, chills, headache, diarrhea or constipation. Tolerating Arimidex very well. She had discontinued Fosamax in June due to feeling GI upset, taking calcium and vitamin D.. ECOG PERFORMANCE STATUS: 0- Fully active, able to carry on all pre-disease performance w/o restriction. PHYSICAL EXAM: BP 144/71 Pulse 63 Temp (Src) 97.9 (Temporal) Resp 16 Wt 122 lb 1.6 oz (55.4kg) SpO2 97% CONSTITUTIONAL: Awake, alert, oriented. HEAD (Incl. face): Normocephalic; Atraumatic. EYES: Pupils are reactive. No scleral icterus. HEENT: No oral exudates. No thrush. NECK: No thyromegaly. No JVD. HEMATOLOGY/LYMPHATIC: No petechiae or purpura. RESPIRATORY: Lungs are clear to auscultation. CARDIOVASCULAR: RRR. No murmur or gallop. Breast: Bilateral mastectomy, site unremarkable. ABDOMEN: Non-tender, soft, no masses. LYMPH: no cervical, axillary adenopathy. EXTREMITIES: No edema INTEGUMENTARY: No rashes. NEURO: alert, oriented, no focal deficits, speech normal. PSYCHIATRIC: Pleasant affect. No signs of agitation. LABS: Latest Reference Range & Units 09/30/21 10:17 03/29/22 10:03 Sodium 136 - 144 mmol/L 142 141 Potassium 3.7 - 5.1 mmol/L 3.6 (L) 4.0 Chloride 97 - 105 mmol/L 104 101 CO2 22 - 30 mmol/L 25 30 BUN 7 - 21 mg/dL 17 15 Creatinine 0.58 - 0.96 mg/dL 0.83 0.77 Glucose 74 - 99 mg/dL 92 100 (H) Protein, Total 6.3 - 8.0 g/dL 7.2 7.4 Calcium 8.5 - 10.2 mg/dL 9.8 10.5 (H) Albumin 3.9 - 4.9 g/dL 4.7 4.9 Bilirubin, Total 0.2 - 1.3 mg/dL 0.3 0.5 Alkaline Phosphatase 34 - 123 U/L 119 135 (H) ALT 7 - 38 U/L 31 33 AST 13 - 35 U/L 26 30 Anion Gap 9 - 18 mmol/L 13 10 eGFR >=60 mL/min/1.73m 77 85 Hematocrit 36.0 - 46.0 % 40.9 41.5 WBC 3.70 - 11.00 k/uL 5.95 6.74 RBC 3.90 - 5.20 m/uL 4.44 4.38 Hemoglobin 11.5 - 15.5 g/dL 14.2 14.0 Platelet Count 150 - 400 k/uL 304 357 MCV 80.0 - 100.0 fL 92.1 94.7 MCH 26.0 - 34.0 pg 32.0 32.0 MCHC 30.5 - 36.0 g/dL 34.7 33.7 MPV 9.0 - 12.7 fL 10.1 9.9 RDW-CV 11.5 - 15.0 % 12.2 11.9 DTYPE Auto Auto Neut% % 57.8 59.8 (L): Data is abnormally low (H): Data is abnormally high PATHOLOGY: BCI test results done on 10/08/2021: Predictive results: No (Am I likely to benefit from extended endocrine therapy?) Prognostic result: 6.1% (6.1% risk of late distant recurrence years 5 to 10 years for HR positive lymph node negative patients) RADIOLOGY: DEXA scan 10/28/2020: Findings are compatible with osteoporosis. Significant decreased bone mineral density in the lumbar spine and left hip compared to the prior study, as detailed above. MRI abdomen with and without contrast 09/10/2019: IMPRESSION: Unchanged subcentimeter cystic pancreatic lesions. No enhancing nodular components. Hepatic steatosis. ASSESSMENT / PLAN: 1. Invasive lobular carcinoma with right breast LCIS, BRCA2 mutation. T2 N0. ER/ID positive HER-2/blaire not amplified. OncoDx score 18 (intermediate risk). -s/p bilateral mastectomies (03/22/2017), had undergone prophylactic left breast mastectomy. Patient is undergoing adjuvant endocrine therapy with Arimidex since December 2016. Tolerating it very well. Reviewed BCI test results, she is not likely to benefit from extended endocrine therapy, she agrees to stop Arimidex now. We will continue surveillance. 2. Osteoporosis. She was on Fasamax 70mg wkly since 10/2020, calcium and vitamin D 1200 mg / 600 unit daily. Quit taking fosamax in Jun due to GI side effects. Continue calcium/vit for now. Follow-up calcium last month with her PCP according to her was normal. She drinks lots of milk at home, advised to cut down. Due for Dexa in October 2022 3. Cystic lesion in the pancreatic tail on MRI done in 2017. One year follow-up done in September 2019 showed stability. No plan for further imaging now. She follows PCP for that. Return visit in 6 months for follow-up with CBC and CMP on the day of visit. She is interested in breast reconstructive procedure, requesting plastic surgery consultation, referral placed. Shayna Paige MD CC: Yair Lopez, Elements copied from previous note, have been reviewed and updated where appropriate, and all reflect current assessment and plan. Note: This dictation was partially generated using [employer] voice recognition software. Please excuse any grammatical or spelling errors that may have occurred using the system. Orders Placed This Encounter CMP 6m Standing Status: Future Standing Expiration Date: 03/29/2023 CBC 6M Standing Status: Future Standing Expiration Date: 03/29/2023 CONSULT TO PLASTIC SURGERY Order Comments: Interested in breast reconstructive procedure Standing Status: Future Standing Expiration Date: 03/29/2023 Order Specific Question: Does consulting provider have [facility] Epic access? Answer: Yes documented in this encounter [facility] 09-30-2021 Miscellaneous Notes Called patient to inform her that a Potassium prescription was sent to [facility] IN [place] per Dr Paige. 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 Madalyn Burnett MA documented in this encounter [facility] 09-30-2021 Miscellaneous Notes Addended by: SHAYNA PAIGE on: 09/30/2021 10:56 AM Modules accepted: Orders documented in this encounter [facility] 09-30-2021 History of Present illness Narrative HISTORY OF PRESENT ILLNESS: Sherry Vazquez is a 66-year-old female, comes here for follow-up for breast cancer. Previously she was being followed by Dr. Ravi. She felt an abnormality in the right breast which led to a mammogram which was done on 09/22/16. It showed segmental amorphus calcification in the right breast suspicious for malignancy. A stereotactic biopsy was recommended. Right breast ultrasound done on 09/22/16 did not show any abnormality in the right breast. Patient underwent right breast lumpectomy with right axillary sentinel lymph node sampling on 11/08/16. Final pathology report showed invasive lobular carcinoma with lobular carcinoma in situ. Tumor size: 3 x 3 x 1.2 cm. Overall grade 3. Margins involved by lobular carcinoma with tumor extending to the medial, lateral, superior, inferior and posterior margins. LCIS measured 4 x 2 x 1 mm. Grade 2. Focal necrosis present. Closest margin less than 1 mm. DCIS not present. Microcalcification present. Two sentinel lymph nodes negative for metastasis. ER/ID positive and HER-2/blaire not amplified. Patient underwent a right mastectomy on 11/22/16 which did not reveal any residual invasive cancer or LCIS. OncoDx testing was done. Recurrence score result: 18. (Intermediate risk). Patient also has osteoporosis. Bone density was done on 01/16/17. It showed a T score of -2.6 in the AP spine consistent with osteoporosis. She had MRI of the abdomen in 2018 which showed a cystic lesion in the pancreatic tail. Patient is undergoing adjuvant endocrine therapy with Arimidex since December 2016. One year follow-up done in September 2019 shows stability. No plan for further imaging now. Her 2 sisters had breast cancer, father had prostate cancer. Colonoscopy 04/21/2021: - Non-bleeding internal hemorrhoids. -diverticulosis of sigmoid colon - small polyp of hepatic flexure, biopsied and retrieved Pathology Colon, hepatic flexure, polyp, biopsy Tubular adenoma. CURRENT STATUS: She is here for follow-up, doing very well, claims to be physically active, no weight loss, no shortness of breath, cough, fever, chills, headache, diarrhea or constipation. Tolerating Arimidex very well. ECOG PERFORMANCE STATUS: 0- Fully active, able to carry on all pre-disease performance w/o restriction. PHYSICAL EXAM: BP 140/72 Pulse 55 Temp (Src) 98.2 (Temporal) Resp 16 Wt 123 lb 8 oz (56.0kg) SpO2 97% CONSTITUTIONAL: Awake, alert, oriented. HEAD (Incl. face): Normocephalic; Atraumatic. EYES: Pupils are reactive. No scleral icterus. HEENT: No oral exudates. No thrush. NECK: No thyromegaly. No JVD. HEMATOLOGY/LYMPHATIC: No petechiae or purpura. RESPIRATORY: Lungs are clear to auscultation. CARDIOVASCULAR: RRR. No murmur or gallop. Breast: Bilateral mastectomy, site unremarkable. ABDOMEN: Non-tender, soft, no masses. LYMPH: no cervical, axillary adenopathy. EXTREMITIES: No edema INTEGUMENTARY: No rashes. NEURO: alert, oriented, no focal deficits, speech normal. PSYCHIATRIC: Pleasant affect. No signs of agitation. LABS: Results for SHERRY VAZQUEZ ( ) as of 09/30/2021 10:54 Ref. Range 09/30/2021 10:17 Sodium Latest Ref Range: 136 - 144 mmol/L 142 Potassium Latest Ref Range: 3.7 - 5.1 mmol/L 3.6 (L) Chloride Latest Ref Range: 97 - 105 mmol/L 104 CO2 Latest Ref Range: 22 - 30 mmol/L 25 BUN Latest Ref Range: 7 - 21 mg/dL 17 Creatinine Latest Ref Range: 0.58 - 0.96 mg/dL 0.83 Glucose Latest Ref Range: 74 - 99 mg/dL 92 Protein, Total Latest Ref Range: 6.3 - 8.0 g/dL 7.2 Calcium Latest Ref Range: 8.5 - 10.2 mg/dL 9.8 Albumin Latest Ref Range: 3.9 - 4.9 g/dL 4.7 Bilirubin, Total Latest Ref Range: 0.2 - 1.3 mg/dL 0.3 Alkaline Phosphatase Latest Ref Range: 34 - 123 U/L 119 ALT Latest Ref Range: 7 - 38 U/L 31 AST Latest Ref Range: 13 - 35 U/L 26 Anion Gap Latest Ref Range: 9 - 18 mmol/L 13 eGFR Latest Ref Range: >=60 mL/min/1.73m 77 Hematocrit Latest Ref Range: 36.0 - 46.0 % 40.9 WBC Latest Ref Range: 3.70 - 11.00 k/uL 5.95 RBC Latest Ref Range: 3.90 - 5.20 m/uL 4.44 Hemoglobin Latest Ref Range: 11.5 - 15.5 g/dL 14.2 Platelet Count Latest Ref Range: 150 - 400 k/uL 304 MCV Latest Ref Range: 80.0 - 100.0 fL 92.1 MCH Latest Ref Range: 26.0 - 34.0 pg 32.0 MCHC Latest Ref Range: 30.5 - 36.0 g/dL 34.7 MPV Latest Ref Range: 9.0 - 12.7 fL 10.1 RDW-CV Latest Ref Range: 11.5 - 15.0 % 12.2 DTYPE Unknown Auto Neut% Latest Units: % 57.8 Abs Neut (ANC) Latest Ref Range: 1.45 - 7.50 k/uL 3.44 Lymph% Latest Units: % 30.6 Abs Lymph Latest Ref Range: 1.00 - 4.00 k/uL 1.82 Kimble% Latest Units: % 7.9 Abs Kimble Latest Ref Range: <0.87 k/uL 0.47 Eosin% Latest Units: % 2.7 Abs Eosin Latest Ref Range: <0.46 k/uL 0.16 Baso% Latest Units: % 0.8 Abs Baso Latest Ref Range: <0.11 k/uL 0.05 Immature Gran % Latest Units: % 0.2 IMMATURE GRANS (ABS) Latest Ref Range: <0.10 k/uL <0.03 NRBC Latest Units: /100 WBC 0.0 RADIOLOGY: DEXA scan 10/28/2020: Findings are compatible with osteoporosis. Significant decreased bone mineral density in the lumbar spine and left hip compared to the prior study, as detailed above. MRI abdomen with and without contrast 09/10/2019: IMPRESSION: Unchanged subcentimeter cystic pancreatic lesions. No enhancing nodular components. Hepatic steatosis. ASSESSMENT / PLAN: 1. Invasive lobular carcinoma with right breast LCIS, BRCA2 mutation. T2 N0. ER/ID positive HER-2/blaire not amplified. OncoDx score 18 (intermediate risk). -s/p bilateral mastectomies (03/22/2017), had undergone prophylactic left breast mastectomy. Patient is undergoing adjuvant endocrine therapy with Arimidex since December 2016. Tolerating it very well. Continue Arimidex. 2. Osteoporosis. Currently on Fasamax 70mg wkly since 10/2020, calcium and vitamin D 1200 mg / 600 unit daily. Continue Fosamax and calcium. 3. Cystic lesion in the pancreatic tail on MRI done in 2018. One year follow-up done in September 2019 showed stability. No plan for further imaging now. She is scheduled for colonoscopy in [facility] on April 21. Reviewed lab, we will continue Arimidex, will get breast cancer index testing for further decision-making. I have ordered KCl tablet 20 mEq for 7 days for hypokalemia. Return visit in 6 months for follow-up with CBC and CMP on the day of visit. Shayna Paige MD CC: Yair Lopez, DO Some Elements Copied from my note previous note. I have updated where appropriate, and all reflect current medical decision making from today's encounter, September 30, 2021. Note: This dictation was partially generated using [employer] voice recognition software. Please excuse any grammatical or spelling errors that may have occurred using the system. Orders Placed This Encounter CMP 6m Standing Status: Future Standing Expiration Date: 09/30/2022 CBC 6M Standing Status: Future Standing Expiration Date: 09/30/2022 potassium chloride ER (K-DUR, KLOR-CON) 20 mEq tablet Sig: Take 1 tablet by mouth once daily for 7 days. Dispense: 7 tablet Refill: 0 documented in this encounter [facility] Diagnosis Neoplasm of right breast, primary tumor staging category Tis: lobular carcinoma in situ (LCIS)- Primary Osteoporosis, unspecified osteoporosis type, unspecified pathological fracture presence [facility] Diagnosis Neoplasm of right breast, primary tumor staging category Tis: lobular carcinoma in situ (LCIS)- Primary Osteoporosis, unspecified osteoporosis type, unspecified pathological fracture presence [facility] Diagnosis Encounter for gynecological examination (general) (routine) without abnormal findings- Primary [facility]* Diagnosis 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 Acquired absence of breast and nipple Personal history of malignant neoplasm of breast [facility] 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 Acquired absence of breast and nipple Personal history of malignant neoplasm of breast Acquired absence of bilateral breasts and nipples Acquired absence of breast and nipple Personal history of malignant neoplasm of breast [facility] Diagnosis S/P breast reconstruction, bilateral- Primary Breast replaced by other means Acquired absence of bilateral breasts and nipples Acquired absence of breast and nipple Personal history of malignant neoplasm of breast Acquired absence of bilateral breasts and nipples Acquired absence of breast and nipple Personal history of malignant neoplasm of breast [facility] Diagnosis 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 Acquired absence of breast and nipple Acquired absence of bilateral breasts and nipples Acquired absence of breast and nipple Personal history of malignant neoplasm of breast [facility] Diagnosis 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 Acquired absence of breast and nipple Acquired absence of bilateral breasts and nipples Acquired absence of breast and nipple Personal history of malignant neoplasm of breast [facility] Diagnosis 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 Acquired absence of breast and nipple S/P breast reconstruction, bilateral Breast replaced by other means [facility] Diagnosis 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 Acquired absence of breast and nipple [facility]* Diagnosis 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 Acquired absence of breast and nipple Personal history of malignant neoplasm of breast [facility]* Diagnosis Invasive lobular carcinoma of right breast, stage 1 (HCC) T2 N0- Primary BRCA 2 gene mutation positive [facility]* Diagnosis 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 Acquired absence of breast and nipple S/P breast reconstruction, bilateral Breast replaced by other means [facility]* Diagnosis History of breast cancer- Primary Personal history of malignant neoplasm of breast Encounter for screening for osteoporosis Special screening for osteoporosis 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 documented in this encounter [facility] note* Diagnosis Other osteoporosis without current pathological fracture- [facility] History of right breast cancer- Primary documented in this encounter [facility] for visit Narrative* Auth/Cert Specialty Diagnoses / Procedures Referred By Sam carlson Referred To Contact Diagnoses Acquired absence of bilateral breasts and nipples Personal history of malignant neoplasm of breast Acquired absence of bilateral breasts and nipples [Z90.13] Personal history of malignant neoplasm of breast [Z85.3] Procedures ID TISSUE LITIGATION ATTORNEY ASSOCIATE PLACEMENT BREAST RECONSTRUCTION ID IMPLNT BIO IMPLNT FOR SOFT TISSUE REINFORCEMENT RECONSTRUCTION BREAST TISSUE LITIGATION ATTORNEY ASSOCIATE INCLUDING SUBSEQUENT EXPANDERS IMPLANTATION BIOLOGIC IMPLANT FOR SOFT TISSUE REINFORCEMENT ADD-ON PX Kalani Vieira MD [address] [place] [address] Referral ID Status Reason Start Date Expiration Date Visits Re quested Visits Authorized [id number] 06/06/2022 1 1 [facility] Summary Purpose Family History No Family History Records FoundNo Family History Records FoundNo Family History Records FoundNo Family History Records FoundNo Family History Records Found Advance Directives No Advanced Directives Records FoundDocuments on File Type Date Recorded 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 Insurance Adjuster 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 anation Advance Directive(s) 04/21/2021 9:40 AM Documents on File Type Date Recorded 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 Insurance Adjuster Expl anation Advance Directives/Living Will 07/14/2022 2:39 PM Living Will Documents on File Type Date Recorded 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 Insurance Adjuster Expl anation Advance Directives/Living Will 07/14/2022 2:39 PM Living Will Reason for Referral Specialty Diagnoses / Procedures Referred By Sam carlson Referred To Contact Plastic Surgery Diagnoses Neoplasm of right breast, primary tumor staging category Tis: lobular carcinoma in situ (LCIS) Procedures CONSULT TO PLASTIC SURGERY OFFICE/OUTPATIENT [facility] MDM 60-74 MINUTES Shayna Paige MD [address] [place] [address] Referral ID Status Reason Start Date Expiration Date Visits Requested Visits Authorized [id number] Authorized PCP Requested Referral 03/29/2022 03/29/2023 1 1 Additional Source Comments INFORMATION SOURCE (unrecogn ized section and content) DATE CREATED AUTHOR AUTHOR'S ORGANIZ ATION 12/29/2017 [facility] DATE CREATED AUTHOR AUTHOR'S ORGANIZ ATION 10/12/2022 [facility] DATE CREATED AUTHOR AUTHOR'S ORGANIZ ATION 11/05/2022 [facility] DATE CREATED AUTHOR AUTHOR'S ORGANIZ ATION 05/14/2023 [facility] Source Comments (unrecognize d section and content) In the event this informatio n is protected by the Federal Confidentiality of Alcohol and Drug Abuse Patient Records regulations: The Federal rules restrict any use of the information to criminally investigate or prosecute any alcohol or drug abuse patient.[facility] the event this information is protected by the Federal Confidentiality of Alcohol and Drug Abuse Patient Records regulations: The Federal rules restrict any use of the information to criminally investigate or prosecute any alcohol or drug abuse patient.[facility] the event this information is protected by the Federal Confidentiality of Alcohol and Drug Abuse Patient Records regulations: The Federal rules restrict any use of the information to criminally investigate or prosecute any alcohol or drug abuse patient.[facility] the event this information is protected by the Federal Confidentiality of Alcohol and Drug Abuse Patient Records regulations: The Federal rules restrict any use of the information to criminally investigate or prosecute any alcohol or drug abuse patient.[facility] the event this information is protected by the Federal Confidentiality of Alcohol and Drug Abuse Patient Records regulations: The Federal rules restrict any use of the information to criminally investigate or prosecute any alcohol or drug abuse patient.[facility] the event this information is protected by the Federal Confidentiality of Alcohol and Drug Abuse Patient Records regulations: The Federal rules restrict any use of the information to criminally investigate or prosecute any alcohol or drug abuse patient.[facility] the event this information is protected by the Federal Confidentiality of Alcohol and Drug Abuse Patient Records regulations: The Federal rules restrict any use of the information to criminally investigate or prosecute any alcohol or drug abuse patient.[facility] the event this information is protected by the Federal Confidentiality of Alcohol and Drug Abuse Patient Records regulations: The Federal rules restrict any use of the information to criminally investigate or prosecute any alcohol or drug abuse patient.[facility] the event this information is protected by the Federal Confidentiality of Alcohol and Drug Abuse Patient Records regulations: The Federal rules restrict any use of the information to criminally investigate or prosecute any alcohol or drug abuse patient.[facility] the event this information is protected by the Federal Confidentiality of Alcohol and Drug Abuse Patient Records regulations: The Federal rules restrict any use of the information to criminally investigate or prosecute any alcohol or drug abuse patient.[facility] Center[facility] the event this information is protected by the Federal Confidentiality of Alcohol and Drug Abuse Patient Records regulations: The Federal rules restrict any use of the information to criminally investigate or prosecute any alcohol or drug abuse patient.[facility] Center[facility] the event this information is protected by the Federal Confidentiality of Alcohol and Drug Abuse Patient Records regulations: The Federal rules restrict any use of the information to criminally investigate or prosecute any alcohol or drug abuse patient.[facility] Reason for Visit (unrecogniz ed section and content) Reason Comments F/U 6 Month Reason Comments Patient Update Called patient to in form her that [facility] [place] [facility] Paige. 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 Reason Comments Care Coordination Breast Cancer Index sent on Breast Bx from 2016 Reason Comments F/U 6 Month Reason Comments [facility] Reason Comments Yearly Exam Reason Comments Consult Sherry is here tod ay for a breast reconstruction consult. She had a right breast mastectomy on 11/18/16 following a lumpectomy of the right breast on 11/08/16. She then had a left mastectomy in March of 2017. She did not have any radiation or chemotherapy. Specialty Diagnoses / Procedures Referred By Sam carlson Referred To Contact Plastic Surgery Diagnoses Neoplasm of right breast, primary tumor staging category Tis: lobular carcinoma in situ (LCIS) Shayna Paige MBBS [address] [place] [address] Kalani Vieira MD [address] [place] [id number] Referral ID Status Reason Start Date Expiration Date V isits Requested Visits Authorized [id number] Pending Review 03/29/2022 04/23/2023 1 1 Reason Comments Follow-up Sherry is here tod ay to follow up on her upcoming surgery for bilateral breast reconstruction. Reason Comments Pre-operative Consultation Bilateral roslyn ast reconstruction on 07/25/22. Reason Comments Post Op Visit S/p 07/25/2022 bilate ral tissue expanders Reason Comments Post Op Visit Post op bilateral re construction with expanders and ADM 07/25/2022. Reason Comments Post Op Visit 3 week recheck s/p bilateral breast reconstruction with expanders. C/o discomfort with postioning at times, denies at present. Reason Comments Establish Care Bilateral breast ld l. C/o intermittent discomfort to surgical areas but denies at present. Reason Comments Lab Orders Reason Comments Establish Care Bilateral breast ld l Reason Comments Follow Up Reason Comments Results Reason Comments Appointment Upcoming appointment with Dr. Tejeda Reason Comments Follow Up Yearly follow-up for breast evaluation. Care Teams (unrecognized sec tion and content) Supervisor Cutting And Boning Relationship Specialty Start Date End Date Jamison Sandy, CHENILLE MACHINE OPERATOR [address] [place] [address] PCP - General Family Practice 09/30/21 Supervisor Cutting And Boning Relationship Specialty Start Date End Date Jamison Sandy CHENILLE MACHINE OPERATOR [address] [place] [address] PCP - General Family Practice 09/30/21 Supervisor Cutting And Boning Relationship Specialty Start Date End Date Jamison Sandy CHENILLE MACHINE OPERATOR [address] [place] [address] PCP - General Family Practice 09/30/21 Supervisor Cutting And Boning Relationship Specialty Start Date End Date Jamison Sandy CHENILLE MACHINE OPERATOR [address] [place] [address] PCP - General Family Medicine 09/30/21 Supervisor Cutting And Boning Relationship Specialty Start Date End Date Jamison Sandy CHENILLE MACHINE OPERATOR [address] [place] [address] PCP - General Family Medicine 09/30/21 Supervisor Cutting And Boning Relationship Specialty Start Date End Date Jamison Sandy CHENILLE MACHINE OPERATOR [address] [place] [address] PCP - General Family Medicine 09/30/21 Supervisor Cutting And Boning Relationship Specialty Start Date End Date Hellinger, Jamison L, SHRIMP TRAWLER-CHENILLE MACHINE OPERATOR [address] [place] [address] PCP - General Certified Nurse Practitioner 04/27/22 Supervisor Cutting And Boning Relationship Specialty Start Date End Date Jamison Sandy SHRIMP TRAWLER-CHENILLE MACHINE OPERATOR [address] [place] [address] PCP - General Certified Nurse Practitioner 04/27/22 Supervisor Cutting And Boning Relationship Specialty Start Date End Date Jamison Sandy SHRIMP TRAWLER-CHENILLE MACHINE OPERATOR [address] [place] [address] PCP - General Certified Nurse Practitioner 04/27/22 Supervisor Cutting And Boning Relationship Specialty Start Date End Date Jamison Sandy SHRIMP TRAWLER-CHENILLE MACHINE OPERATOR [address] [place] [address] PCP - General Certified Nurse Practitioner 04/27/22 Supervisor Cutting And Boning Relationship Specialty Start Date End Date Jamison Sandy SHRIMP TRAWLER-CHENILLE MACHINE OPERATOR [address] [place] [address] PCP - General Certified Nurse Practitioner 04/27/22 Supervisor Cutting And Boning Relationship Specialty Start Date End Date Jamison Sandy SHRIMP TRAWLER-CHENILLE MACHINE OPERATOR [address] [place] [address] PCP - General Certified Nurse Practitioner 04/27/22 Supervisor Cutting And Boning Relationship Specialty Start Date End Date Jamison Sandy SHRIMP TRAWLER-CHENILLE MACHINE OPERATOR [address] [place] [address] PCP - General Certified Nurse Practitioner 04/27/22 Supervisor Cutting And Boning Relationship Specialty Start Date End Date RanjanjackyAgustokirill King CHENILLE MACHINE OPERATOR [address] [place] [address] PCP - General Family Medicine 09/30/21 Supervisor Cutting And Boning Relationship Specialty Start Date End Date Vika Jamisonkirill King CHENILLE MACHINE OPERATOR [address] [place] [address] PCP - General Family Medicine 09/30/21 Supervisor Cutting And Boning Relationship Specialty Start Date End Date Felicia Sandy, YOLI [address] [place] [address] PCP - General Family Medicine 09/30/21 Supervisor Cutting And Boning Relationship Specialty Start Date End Date Felicia Sandy CNP [address] [place] [address] PCP - General Family Medicine 09/30/21 Scheduled Active and Recently Administ ered Medications (unrecognized section and content) Continuous Medication Order 07/23/2022 07/24/2022 07/25/2022 Lactated ringers IV solution Intravenous, at 50 mL/hr, CONTINUOUS, Starting on Mon07/25/22 at 0745, Until Mon07/25/22 at 2019, Pre-op/Pre-Proc 0744 ($$New Bag$$ - Provider: DIMPLE Johns)0841 ($$New Bag$$ - Provider: DIMPLE Johns)1113 ($$New Bag$$ - Provider: DIMPLE Johns) PRN Medication Order 07/23/2022 07/24/2022 07/25/2022 Bupivacaine (PF) (MARCAINE) 0.25 % injection NEEDED, Starting on Mon07/25/22 at 0821, Until Mon07/25/22 at 2019, Intra-op/Intra-Proc 0821 (Given - Provid er: Kalani Vieira MD - Comment: given to sterile field) ceFAZolin (ANCEF) 2 g in dextrose 100 mL premix IVPB (COMPLETED) 2 g, Intravenous, Administer over 30 Minutes, ACTIVATED SLUDGE OPERATOR TO PROCEDURE, 1 dose, Starting on Mon07/25/22 at 0741, Until Mon07/25/22 at 0748, Other, Pre-operative antibiotic, For 15 Minutes, Pre-op/Pre-Proc 0748 (Given - Provid er: DIMPLE Johns) Gentamicin (GARAMYCIN) injection NEEDED, Starting on Mon07/25/22 at 0822, Until Mon07/25/22 at 2019, Intra-op/Intra-Proc 0822 (Given - Provid er: Kalani Vieira MD - Comment: given to sterile field mixed with 1500 of 0.9% sodium chloride for irrigation) Methylene blue (PROVAYBLUE) injection NEEDED, Starting on Mon07/25/22 at 0819, Until Mon07/25/22 at 2019, Intra-op/Intra-Proc 0819 (Given - Provid er: Kalani Vieira MD - Comment: given to sterile field) Sodium chloride 0.9 % irrigation NEEDED, Starting on Mon07/25/22 at 0823, Until Mon07/25/22 at 2019, Intra-op/Intra-Proc 0823 (Given - Provid er: Kalani Vieira MD - Comment: 1500ml given to sterile field for submerging implants, 1500ml given to sterile field and mixed with gentamicin for antibiotic irrigation) Sodium chloride 0.9% IV solution CONTINUOUS NEEDED, Starting on Mon07/25/22 at 0824, Until Mon07/25/22 at 2019, Intra-op/Intra-Proc 0824 ($$New Bag$$ - Provider: Kalani Vieira MD - Comment: given to sterile field for filling expanders) Scheduled Medication Order 07/23/2022 07/24/2022 07/25/2022 oxyCODONE-acetaminophen (PERCOCET) 5-325 MG per tablet 1 tablet (COMPLETED) 1 tablet, Oral, ONCE, 1 dose, On Mon07/25/22 at 1400, 1335 (Given - Provid er: Cata Bell RN) Continuous Medication Order 07/23/2022 07/24/2022 07/25/2022 Lactated ringers IV solution Intravenous, at 50 mL/hr, CONTINUOUS, Starting on Mon07/25/22 at 0745, Until Mon07/25/22 at 2019, Pre-op/Pre-Proc 0744 ($$New Bag$$ - Provider: DIMPLE Johns)0841 ($$New Bag$$ - Provider: DIMPLE Johns)1113 ($$New Bag$$ - Provider: DIMPLE Johns) PRN Medication Order 07/23/2022 07/24/2022 07/25/2022 Bupivacaine (PF) (MARCAINE) 0.25 % injection NEEDED, Starting on Mon07/25/22 at 0821, Until Mon07/25/22 at 2019, Intra-op/Intra-Proc 0821 (Given - Provid er: Kalani Vieira MD - Comment: given to sterile field) ceFAZolin (ANCEF) 2 g in dextrose 100 mL premix IVPB (COMPLETED) 2 g, Intravenous, Administer over 30 Minutes, ACTIVATED SLUDGE OPERATOR TO PROCEDURE, 1 dose, Starting on Mon07/25/22 at 0741, Until Mon07/25/22 at 0748, Other, Pre-operative antibiotic, For 15 Minutes, Pre-op/Pre-Proc 0748 (Given - Provid er: Isaac Lynn APRN-[facility]) Gentamicin (GARAMYCIN) injection NEEDED, Starting on Mon07/25/22 at 0822, Until Mon07/25/22 at 2019, Intra-op/Intra-Proc 0822 (Given - Provid er: Kalani Vieira MD - Comment: given to sterile field mixed with 1500 of 0.9% sodium chloride for irrigation) Methylene blue (PROVAYBLUE) injection NEEDED, Starting on Mon07/25/22 at 0819, Until Mon07/25/22 at 2019, Intra-op/Intra-Proc 0819 (Given - Provid er: Kalani Vieira MD - Comment: given to sterile field) Sodium chloride 0.9 % irrigation NEEDED, Starting on Mon07/25/22 at 0823, Until Mon07/25/22 at 2019, Intra-op/Intra-Proc 0823 (Given - Provid er: Kalani Vieira MD - Comment: 1500ml given to sterile field for submerging implants, 1500ml given to sterile field and mixed with gentamicin for antibiotic irrigation) Sodium chloride 0.9% IV solution CONTINUOUS NEEDED, Starting on Mon07/25/22 at 0824, Until Mon07/25/22 at 2019, Intra-op/Intra-Proc 0824 ($$New Bag$$ - Provider: Kalani Vieira MD - Comment: given to sterile field for filling expanders) FOR RECORDS PERTAINING TO PATIENTS WHO ARE OR HAVE BEEN ENROLLED IN A CHEMICAL DEPENDENCY/SUBSTANCEABUSE PROGRAM, SOME INFORMATION MAY BE OMITTED. This clinical summary was aggregated from multiple sources. Caution should be exercised in using it in the provision of clinical care. This summary normalizes information from multiple sources, and as a consequence, information in this document may materially change the coding, format and clinical context of patient data. In addition, data may be omitted in some cases. CLINICAL DECISIONS SHOULD BE BASED ON THE PRIMARY CLINICAL RECORDS. [facility] [employer] [facility]. provides no warranty or guarantee of the accuracy or completeness of information in this document.
== END | disposition home or self-care (01) ==
LOC: US 12:54
PROVIDERS: PCP Nurse Practitioner Family; Referring Provider Nurse Practitioner Family; Visit Provider Nurse Practitioner Family
DX: R22.2 Localized swelling, mass and lump, trunk (principal)
CPT/HCPCS: 76604

== ENCOUNTER → 2023-08-11 | Outpatient (CLI) | payer MEDICARE, OTHER, SELFPAY ==
--- NOTE | 2023-08-11 13:11 | MRI_ITS ---
EXAM: MR CHEST WITHOUT AND WITH INTRAVENOUS CONTRAST CLINICAL INDICATION: CHEST WALL MASS TECHNIQUE: Multiplanar magnetic resonance images of the chest without and with intravenous contrast. CONTRAST: 11 CC IV CLARISCAN COMPARISON: 07/21/2023 ultrasound of the chest and MRI of 05/31/2023 FINDINGS: LUNGS: Unremarkable. No mass. No consolidation. PLEURAL SPACE: Moderate right pleural effusion. No pneumothorax. HEART: Prominent heart size. No significant pericardial effusion. MEDIASTINUM: Enhancing anterior mediastinal mass extending to the right upper lobe. This measures 35 x 55 mm. The mass extends through the anterior ribs and into the medial right breast tissue. This area abuts the implant. Soft tissue component near the medial right breast implant measures 35 x 14 mm. Abnormal enhancement of the right anterior lung pleural surface which extends to enhancement of the right upper lobe lateral pleural surface concerning for metastatic spread of disease to the pleural surface. BONES/JOINTS: Degenerative findings in both shoulders. No acute fracture. No dislocation. SOFT TISSUES: There are bilateral breast implants. VASCULATURE: Unremarkable. No thoracic aortic aneurysm. LYMPH NODES: Unremarkable. No enlarged lymph nodes. MRI/Chest W/WO Contrast IMPRESSION: 1. Moderate right pleural effusion. 2. There is either a recurrence of the tumor along the medial right breast implant which is extending through the chest wall into the right upper lobe and anterior mediastinum versus a right upper lobe pulmonary neoplasm which is extending into the anterior mediastinum through the ribs and into the medial right breast tissue. Electronically Signed: Isaiah Resendez MD at 14:29 EST ,
--- OUTSIDE RECORDS SUMMARY | 2023-08-11 13:44 | XMS RPT_ITS | CCD ---
Author Name Unknown Address [id number] [place] [address] Organization [facility] Care Team Providers Care Lunch Cook Name Role Phone Smith Ravi Unavailable Unavailable Smith Ravi Unavailable Unavailable Hellinger, Jamison King Unavailable Unavailable Hellinger, Jamison King Unavailable Unavailable Yair Lopez Unavailable Unavailable Hellinger Jamison KETN Primary Care Provider Hellinger Jamison KENT Primary Care Provider Hellinger SCRAP HOIST OPERATOR-Jamison KENT Primary Care Provide r HelJamison watson [...] MEDINA. Attending Unavailable FLOR MEDINA Referring Unavailable [facility] Primary Care Unavailable Hellinger Felicia KENT Primary Care Provider Hellinger Felicia KENT Primary Care Provider FLOR MEDINA Attending Unavailable FLOR MEDINA Referring Unavailable HELLINGANANDA, FELICIA KING Primary Care Unavailable FLOR TEJEDA Attending Unavailable HELLING, FELICIA KING Primary Care Unavailable FLOR MEDINA Attending Unavailable [facility] Referring Unavailable [facility] Primary Care Unavailable SHAYNA PAIGE Referring Unavailable HELLING, FELICIA KING Primary Care Unavailable Allergies Allergy Classification Reported Allergen(s) Allergy Type Date of Onset Reaction(s) Facility (8 sources) *Adhesive Tape Propensity to adverse reactions 07-12-2022 [facility] Medications Current Medications Medication Drug Class(es) [...] Long-term current use of aromatase inhibitor; Translations: [salvage determiner (current) use of aromatase inhibitors] Onset: 01-04-2017 [...] 98.91 [degF] Flor Tejeda MD Work Phone: [facility] 05-12-2023 15:53-0500 Body weight 57.06 kg Flor Tejeda MD Work Phone: [facility] 05-12-2023 15:53-0500 Diastolic blood pressure 78 mm[Hg] Flor Tejeda MD Work Phone: [facility] 05-12-2023 15:53-0500 Heart rate 84 /min Flor Tejeda MD Work Phone: [facility] 05-12-2023 15:53-0500 SaO2% (BldA) [Mass fraction] 98 % Flor Tejeda MD Work Phone: [facility] 05-12-2023 15:53-0500 Systolic blood pressure 136 mm[Hg] Flor Tejeda MD Work Phone: [facility] 09-27-2022 13:21-0400 Body height 147.3 cm Flor Medina APRN.CNP Work Phone: [facility] 09-27-2022 13:21-0400 Body temperature 98.2 [degF] Flor Medina APRN.MARKET RISK ANALYST Work Phone: [facility] 09-27-2022 13:21-0400 Body weight 56.79 kg Flor Medina APRN.MARKET RISK ANALYST Work Phone: [facility] 09-27-2022 13:21-0400 Diastolic blood pressure 70 mm[Hg] Flor Medina APRN.MARKET RISK ANALYST Work Phone: [facility] 09-27-2022 13:21-0400 Heart rate 54 /min Flor Medina SCRAP HOIST OPERATOR.MARKET RISK ANALYST Work Phone: [facility] 09-27-2022 13:21-0400 Respiratory rate 16 /min Flor Medina APRN.MARKET RISK ANALYST Work Phone: [facility] 09-27-2022 13:21-0400 SaO2% (BldA) [Mass fraction] 97 % Flor Medina APRN.MARKET RISK ANALYST Work Phone: [facility] 09-27-2022 13:21-0400 Systolic blood pressure 133 mm[Hg] Flor Medina APRN.MARKET RISK ANALYST Work Phone: [facility] 09-27-2022 09:39-0400 Body height 148.6 cm Kalani Vieira MD Work Phone: [facility] 09-27-2022 09:39-0400 Body mass index (BMI) [Ratio] 25.76 kg/m2 Kalani Vieira MD Work Phone: [facility] 09-27-2022 09:39-0400 Body temperature 97.11 [degF] Kalani Vieira MD Work Phone: [facility] 09-27-2022 09:39-0400 Body weight 56.88 kg Kalani Vieira MD Work Phone: [facility] 09-27-2022 09:39-0400 Diastolic blood pressure 79 mm[Hg] Kalani Vieira MD Work Phone: 5(826)948-619466 [place] [address] 09-27-2022 09:39-0400 Heart rate 58 /min Kalani Vieira MD Work Phone: 0(675)108-050485 [place] [address] 09-27-2022 09:39-0400 Systolic blood pressure 138 mm[Hg] Kalani Vieira MD Work Phone: 5(878)079-964085 [place] [address] 09-13-2022 13:13-0400 Body height 148.6 cm Kalani Vieira MD Work Phone: 1(702)126-223885 [place] [address] 09-13-2022 13:13-0400 Body mass index (BMI) [Ratio] 26.05 kg/m2 Kalani Vieira MD Work Phone: 5(608)586-925485 [place] [address] 09-13-2022 13:13-0400 Body temperature 97.81 [degF] Kalani Vieira MD Work Phone: 1(603)854-919485 [place] [address] 09-13-2022 13:13-0400 Body weight 57.52 kg Kalani Vieira MD Work Phone: 1(902)851-827385 [place] [address] 09-13-2022 13:13-0400 Diastolic blood pressure 86 mm[Hg] Kalani Vieira MD Work Phone: 6(849)639-140485 [place] [address] 09-13-2022 13:13-0400 Heart rate 67 /min Kalani Vieira MD Work Phone: 6(321)163-440185 [place] [address] 09-13-2022 13:13-0400 Systolic blood pressure 143 mm[Hg] Kalani Vieira MD Work Phone: 4(999)343-970385 [place] [address] 08-30-2022 11:36-0500 Body height 148.6 cm Kalani Vieira MD Work Phone: 7(427)558-304285 [place] [address] 08-30-2022 11:36-0500 Body mass index (BMI) [Ratio] 25.62 kg/m2 Kalani Vieira MD Work Phone: 1(946)869-508385 [place] [address] 08-30-2022 11:36-0500 Body temperature 98.01 [degF] Kalani Vieira MD Work Phone: 1(299)022-193585 [place] [address] 08-30-2022 11:36-0500 Body weight 56.56 kg Kalani Vieira MD Work Phone: 6(796)851-522585 [place] [address] 08-30-2022 11:36-0500 Diastolic blood pressure 84 mm[Hg] Kalani Vieira MD Work Phone: 7(084)858-248185 [place] [address] 08-30-2022 11:36-0500 Heart rate 63 /min Kalani Vieira MD Work Phone: 0(759)077-552485 [place] [address] 08-30-2022 11:36-0500 Systolic blood pressure 145 mm[Hg] Kalani Vieira MD Work Phone: 2(320)083-195185 [place] [address] 08-09-2022 13:08-0500 Body height 148.6 cm Kalani Vieira MD Work Phone: 8(084)521-929585 [place] [address] 08-09-2022 13:08-0500 Body mass index (BMI) [Ratio] 25.56 kg/m2 Kalani Vieira MD Work Phone: 9(202)709-005985 [place] [address] 08-09-2022 13:08-0500 Body temperature 97.3 [degF] Kalani Vieira MD Work Phone: 8(510)769-099685 [place] [address] 08-09-2022 13:08-0500 Body weight 56.43 kg Kalani Vieira MD Work Phone: 8(146)636-254385 [place] [address] 08-09-2022 13:08-0500 Diastolic blood pressure 77 mm[Hg] Kalani Vieira MD Work Phone: 8(013)350-172485 [place] [address] 08-09-2022 13:08-0500 Heart rate 63 /min Kalani Vieira MD Work Phone: 9(319)330-683585 [place] [address] 08-09-2022 13:08-0500 Systolic blood pressure 126 mm[Hg] Kalani Vieira MD Work Phone: 7(221)093-689585 [place] [address] 2022 13:14-0500 Body height 148.6 cm Kalani Vieira MD Work Phone: 5(874)133-108285 [place] [address] 2022 13:14-0500 Body mass index (BMI) [Ratio] 25.6 kg/m2 Kalani Vieira MD Work Phone: 0(972)649-184685 [place] [address] 2022 13:14-0500 Body temperature 97.5 [degF] Kalani Vieira MD Work Phone: 2(206)404-710085 [place] [address] 2022 13:14-0500 Body weight 56.52 kg Kalani Vieira MD Work Phone: 3(686)265-406485 [place] [address] 2022 13:14-0500 Diastolic blood pressure 77 mm[Hg] Kalani Vieira MD Work Phone: 8(706)306-100085 [place] [address] 2022 13:14-0500 Heart rate 56 /min Kalani Vieira MD Work Phone: 6(201)179-794585 [place] [address] 2022 13:14-0500 Systolic blood pressure 145 mm[Hg] Kalani Vieira MD Work Phone: 9(025)265-473885 [place] [address] 07-25-2022 15:30-0500 Diastolic blood pressure 70 mm[Hg] Kalani Vieira MD Work Phone: 9(318)317-708085 [place] [address] 07-25-2022 15:30-0500 Heart rate 77 /min Kalani Vieira MD Work Phone: 9(668)828-860885 [place] [address] 07-25-2022 15:30-0500 Respiratory rate 17 /min Kalani Vieira MD Work Phone: 0(797)286-278685 [place] [address] 07-25-2022 15:30-0500 SaO2% (BldA) [Mass fraction] 98 % Kalani Vieira MD Work Phone: 5(531)092-728085 [place] [address] 07-25-2022 15:30-0500 Systolic blood pressure 139 mm[Hg] Kalani Vieira MD Work Phone: 9(473)673-141785 [place] [address] 07-25-2022 12:45-0500 Body temperature 96.8 [degF] Kalani Vieira MD Work Phone: 2(676)015-014985 [place] [address] 07-25-2022 06:04-0500 Body height 148.6 cm Kalani Vieira MD Work Phone: 3(795)800-389185 [place] [address] 07-25-2022 06:04-0500 Body mass index (BMI) [Ratio] 25.06 kg/m2 Kalani Vieira MD Work Phone: 8(319)976-577085 [place] [address] 07-25-2022 06:04-0500 Body weight 55.34 kg Kalani Vieira MD Work Phone: 4(616)416-956185 [place] [address] 07-12-2022 12:55-0500 Body height 147.3 cm Kalani Vieira MD Work Phone: 3(573)686-883285 [place] [address] 07-12-2022 12:55-0500 Body mass index (BMI) [Ratio] 25.92 kg/m2 Kalani Vieira MD Work Phone: 7(843)550-279385 [place] [address] 07-12-2022 12:55-0500 Body temperature 97.11 [degF] Kalani Vieira MD Work Phone: 2(061)467-788785 [place] [address] 07-12-2022 12:55-0500 Body weight 56.25 kg Kalani Vieira MD Work Phone: 5(261)151-725285 [place] [address] 07-12-2022 12:55-0500 Diastolic blood pressure 62 mm[Hg] Kalani Vieira MD Work Phone: 6(834)760-328885 [place] [address] 07-12-2022 12:55-0500 Heart rate 58 /min Kalani Vieira MD Work Phone: 9(104)221-185885 [place] [address] 07-12-2022 12:55-0500 Systolic blood pressure 114 mm[Hg] Kalani Vieira MD Work Phone: 2(764)288-989785 [place] [address] 06-21-2022 12:50-0500 Body height 147.3 cm Kalani Vieira MD Work Phone: 6(814)025-320285 [place] [address] 06-21-2022 12:50-0500 Body mass index (BMI) [Ratio] 25.92 kg/m2 Kalani Vieira MD Work Phone: 6(023)933-835085 [place] [address] 06-21-2022 12:50-0500 Body temperature 98.2 [degF] Kalani Vieira MD Work Phone: 1(420)826-944985 [place] [address] 06-21-2022 12:50-0500 Body weight 56.25 kg Kalani Vieira MD Work Phone: 4(325)776-003085 [place] [address] 06-21-2022 12:50-0500 Diastolic blood pressure 79 mm[Hg] Kalani Vieira MD Work Phone: 3(142)780-112085 [place] [address] 06-21-2022 12:50-0500 Heart rate 64 /min Kalani Vieira MD Work Phone: 3(464)547-503985 [place] [address] 06-21-2022 12:50-0500 Systolic blood pressure 151 mm[Hg] Kalani Vieira MD Work Phone: 3(892)798-580285 [place] [address] 04-27-2022 14:51-0400 Body height 147.3 cm Kalani Vieira MD Work Phone: 3(816)187-802285 [place] [address] 04-27-2022 14:51-0400 Body mass index (BMI) [Ratio] 25.29 kg/m2 Kalani Vieira MD Work Phone: 8(700)375-846985 [place] [address] 04-27-2022 14:51-0400 Body temperature 97.39 [degF] Kalani Vieira MD Work Phone: 6(000)825-752385 [place] [address] 04-27-2022 14:51-0400 Body weight 54.88 kg Kalani Vieira MD Work Phone: 7(787)971-256785 [place] [address] 04-27-2022 14:51-0400 Diastolic blood pressure 81 mm[Hg] Kalani Vieira MD Work Phone: [facility] 04-27-2022 14:51-0400 Heart rate 63 /min Kalani Vieira MD Work Phone: [facility] 04-27-2022 14:51-0400 Systolic blood pressure 130 mm[Hg] Kalani Vieira MD Work Phone: [facility] 04-12-2022 10:50-0400 Body height 147.3 cm Analia Whitten MD Work Phone: [facility] 04-12-2022 10:50-0400 Body weight 55.79 kg Analia Whitten MD Work Phone: [facility] 04-12-2022 10:50-0400 Diastolic blood pressure 72 mm[Hg] Analia Whitten MD Work Phone: [facility] 04-12-2022 10:50-0400 Systolic blood pressure 110 mm[Hg] Analia Whitten MD Work Phone: [facility] 03-29-2022 10:41-0400 Body temperature 97.9 [degF] Sahyna Paige MD Work Phone: [facility] 03-29-2022 10:41-0400 Body weight 55.38 kg Shayna Paige MD Work Phone: [facility] 03-29-2022 10:41-0400 Diastolic blood pressure 71 mm[Hg] Shayna Paige MD Work Phone: [facility] 03-29-2022 10:41-0400 Heart rate 63 /min Shayna Paige MD Work Phone: [facility] 03-29-2022 10:41-0400 Respiratory rate 16 /min Shayna Paige MD Work Phone: [facility] 03-29-2022 10:41-0400 SaO2% (BldA) [Mass fraction] 97 % Shayna Paige MD Work Phone: [facility] 03-29-2022 10:41-0400 Systolic blood pressure 144 mm[Hg] Shayna Paige MD Work Phone: [facility] 09-30-2021 10:21-0400 Body temperature 98.2 [degF] Shayna Paige MD Work Phone: [facility] 09-30-2021 10:21-0400 Body weight 56.02 kg Shayna Paige MD Work Phone: [facility] 09-30-2021 10:21-0400 Diastolic blood pressure 72 mm[Hg] Shayna Paige MD Work Phone: [facility] 09-30-2021 10:21-0400 Heart rate 55 /min Shayna Paige MD Work Phone: [facility] 09-30-2021 10:21-0400 Respiratory rate 16 /min Shayna Paige MD Work Phone: [facility] 09-30-2021 10:21-0400 SaO2% (BldA) [Mass fraction] 97 % Shayna Paige MD Work Phone: [facility] 09-30-2021 10:21-0400 Systolic blood pressure 140 mm[Hg] Shayna Paige MD Work Phone: [facility] Encounters Encounter Date Encounter Type Care Provider Facility Start: 05-12-2023 End: 05-12-2023 ambulatory FLOR TEJEDA Facility:[facility] Start: 05-12-2023 End: 05-12-2023 Patient encounter procedure Flor Tejeda MD Work Phone: General Surgery Procedures Date Procedure Procedure Detail Performing Clinician Start: 09-27-2021 Adult depression scr eening assessment Nahomi Carrasco RN Start: 04-21-2021 Colonoscopy Nahomi gomez RN Start: 03-10-2016 Mammography Nahomi gomez RN Plan of Treatment Date Care Activity Detail Author Start: 01-31-2028 Tetanus vaccination [facility] Start: 01-31-2028 Urine microalbumin profile [facility] Start: 04-21-2026 Colonoscopy COLONOSCOPY [facility] Start: 04-21-2026 COLORECTAL CANCER SCREENING COLORECTAL CANCER SCREENING [facility] Start: 09-27-2025 DIABETES SCREEN DIABETES SCREEN [facility] Start: 09-27-2025 Diabetes Screening Diabetes Screening [facility] Start: 03-29-2025 DIABETES SCREEN DIABETES SCREEN [facility] Start: 09-30-2024 DIABETES SCREEN DIABETES SCREEN [facility] Start: 07-12-2023 Potassium [Moles/volume] in Serum or Plasma POTASSIUM [facility] Start: 03-03-2023 Covid-19 Vaccine () Covid-19 Vaccine () [facility] Start: 03-03-2023 Covid-19 Vaccine () Covid-19 Vaccine () [facility] Start: 03-03-2023 Influenza vaccination [facility] Start: 09-27-2022 Adult depression screening assessment DEPRESSION SCREENING [facility] Start: 09-27-2022 End: 11-21-2022 CBC W Auto Differential panel - Blood CBC + DIFF Lab Routine BRCA 2 gene mutation positive Invasive lobular carcinoma of right breast, stage 1 (HCC) T2 N0 Expected: 09/27/2022, Expires: 11/21/2022 [facility] Work Phone: Immunizations Immunization Date Immunization Notes Care Provider [facility] 04-01-2020 influenza, injectabl e, quadrivalent, preservative free Analia Whitten MD Work Phone: [facility] Work Phone: 04-01-2020 influenza virus vaccine, unspecified formulation Kalani Vieira MD Work Phone: [facility] 02-17-2020 pneumococcal conjuga te vaccine, 13 valent Analia Whitten MD Work Phone: [facility] Work Phone: 05-08-2019 influenza, injectabl e, quadrivalent, preservative free Analia Whitten MD Work Phone: [facility] Work Phone: 05-10-2018 influenza, injectabl e, quadrivalent, preservative free Analia Whitten MD Work Phone: [facility] Work Phone: 05-02-2018 influenza, injectabl e, quadrivalent, preservative free Analia Whitten MD Work Phone: [facility] Work Phone: 01-30-2018 tetanus toxoid, redu hollis diphtheria toxoid, and acellular pertussis vaccine, adsorbed Analia Whitten MD Work Phone: [facility] Work Phone: Payers Date Payer Category Payer Medicare MEDICARE MEDICAR E A AND B [id number] 2019-Present [phone] [address] [address] [place] [address] Medicare [id number] 2019 Medicare [id number] 2019 Medicare [id number] 2019 Unknown [employer] [id number] 2019-Present [phone] [address] [address] [place] [address] Indemnity [id number] 2019 Unknown [id number] 2017 Unknown 1954 Unknown [id number] [id number] .983 1954 Unknown [id number] [id number] .983 1954 Unknown [id number] [id number] .983 1954 Unknown [id number] [id number] .983 1954 Unknown [id number] [id number] .983 1954 Unknown [id number] [id number] .983 1954 Unknown [id number] [id number] .983 1954 Unknown [id number] [id number] .983 1954 Unknown [id number] [id number] .983 1954 Unknown [id number] [id number] .983 1954 Unknown [id number] [id number] .983 1954 Unknown [id number] [id number] .983 1954 Unknown [id number] .903 [facility] [id number] Social History Date Type Detail Facility Start: 01-21-2013 End: 04-12-2022 Tobacco smoking status NHIS Never smoked tobacco [facility] Start: 04-23-2021 End: 05-12-2023 Alcohol intake Current drinker of alcohol (finding) [facility] Start: 04-23-2021 End: 11-08-2022 Alcohol intake [facility] Start: 01-21-2013 History SDOH Alcohol Comment occasionally [facility] Start: 1955 Sex Assigned At Not on file [facility] Start: 01-21-2013 End: 04-12-2022 Tobacco use and exposure Smokeless tobacco [facility] [employer] Start: 03-19-2022 End: 04-12-2022 Exposure to SARS-CoV-2 (event) Not sure [facility] Start: 04-12-2022 End: 11-08-2022 Tobacco use panel [facility] Adult Depression Screening Assessment 0 [facility] Medical Equipment Procedure Code Equipment Code Equipment Origin al Text Equipment Identifier Dates [place] [employer] Post-Operatively Adjustable Saline Breast Implant [id number] Start: 07-25-2022 Clinical Notes 09-30-2021 to 05-12-2023 Flor Tejeda MD - 05/12/2023 4:01 PM ESTTelephone Encounter - Rafia Oswald - 05/05/2023 9:40 AM EDTTelephone Encounter - Anitha Fernando LPN - 05/05/2023 9:19 AM EDTPatient Instructions Note Date & Type Note Facility 05-12-2023 Note HNO ID: [id number] Author: Flor Tejeda MD Service: ? Author [...] of any pertinent laboratory studies/radiological imaging/medical records, [id number] patient care, obtaining oral medical history from the patient in this encounter, performing a medically appropriate examinatio (more content not included)... [facility] 05-12-2023 History of Present illness Narrative Sherry [...] of any pertinent laboratory studies/radiological imaging/medical records, [id number] patient care, obtaining oral medical history from the patient in this encounter, performing a medically appropriate examination, counseling and educating the patient/family/caregiver, and completing appropriate medical documentation. Flor Tejeda MD documented in this encounter [facility] 05-05-2023 Miscellaneous Notes Patient returned call, she said she sees Dr Tejeda every year for annual breast check Thank you Called patient to question appointment??? Not sure Dr. Tejeda is appropriate provider for patient to see. Please transfer to Gen Surg. documented in this encounter [facility] 11-08-2022 Note HNO ID: [id number] Author: Flor Medina APRN.MARKET RISK ANALYST Service: ? Author Type: Nurse Practitioner Type: [...] Total Time Spent: 8 minutes Flor Medina APRN.[facility] 11-08-2022 History of Present illness Narrative AMBULATORY [...] Total Time Spent: 8 minutes Flor Medina APRN.MARKET RISK ANALYST documented in this encounter [facility] 09-27-2022 Note HNO ID: [id number] Author: Flor Medina APRN.CNP Service: ? Author [...] Two sentinel lymph nodes negative for metastasis. ER/NE positive and HER-2/blaire not amplified. Patient underwent [...] Dr. Vieira where she received bilateral breast systems integration analyst implants. Her last bone density test was [...] or gallop. Breast: Bilateral mastectomy with bilateral systems integration analyst implants present. Incision lines are well-healed. ABDOMEN: [...] Abs Lymph 1.00 - 4.00 k/uL 2.12 [place]% % 5.9 Abs [place] <0.87 k/uL 0.44 Eosin% % 1.2 Abs [...] 21 mg/dL 14 (more content not included)... [facility] 09-27-2022 Instructions Flor Medina APRN.CNP - 09/27/2022 [...] usual activities immediately. documented in this encounter [facility] 09-27-2022 History of Present illness Narrative HISTORY [...] Two sentinel lymph nodes negative for metastasis. ER/NE positive and HER-2/blaire not amplified. Patient underwent [...] Dr. Vieira where she received bilateral breast systems integration analyst implants. Her last bone density test was [...] or gallop. Breast: Bilateral mastectomy with bilateral systems integration analyst implants present. Incision lines are well-healed. ABDOMEN: [...] Abs Lymph 1.00 - 4.00 k/uL 2.12 [place]% % 5.9 Abs [place] <0.87 k/uL 0.44 Eosin% % 1.2 Abs [...] right breast LCIS, BRCA2 mutation. T2 N0. ER/NE positive HER-2/blaire not amplified. OncoDx score 18 [...] with any questions.) documented in this encounter [facility] 09-27-2022 History of Present illness Narrative General [...] lobular carcinoma of right breast, stage 1 nursing home (current) use of aromatase inhibitors Malignant neoplasm of female breast Menopause Osteoporosis Post-menopausal atrophic vaginitis Past Surgical History: Procedure Laterality Date RECONSTRUCTION BREAST TISSUE BUSINESS ACCOUNT EXECUTIVE INCLUDING SUBSEQUENT EXPANDERS Bilateral 07/25/2022 Bilateral breast [...] stage of reconstruction documented in this encounter [facility] 09-21-2022 Miscellaneous Notes Need for new orders, CMP and CBC, for upcoming [facility] appt with Flor Carrasco RN. documented in this encounter [facility] 09-13-2022 History of Present illness Narrative General [...] lobular carcinoma of right breast, stage 1 salvage determiner (current) use of aromatase inhibitors Malignant neoplasm of female breast Menopause Osteoporosis Post-menopausal atrophic vaginitis Past Surgical History: Procedure Laterality Date RECONSTRUCTION BREAST TISSUE BUSINESS ACCOUNT EXECUTIVE INCLUDING SUBSEQUENT EXPANDERS Bilateral 07/25/2022 Bilateral breast [...] kg/m Smoking Status Never The patient's right systems integration analyst plate appears higher than her left. I have reviewed her preoperative photos which demonstrated more skin available on her left side than her right. I discussed the options at length with her includin. leaving the expanders in as permanent implants 2. Leaving one systems integration analyst as a permanent implant and replacing the [...] to this encounter. documented in this encounter [facility] 08-30-2022 History of Present illness Narrative [...] lobular carcinoma of right breast, stage 1 nursing home (current) use of aromatase inhibitors Malignant neoplasm of female breast Menopause Osteoporosis Post-menopausal atrophic vaginitis Past Surgical History: Procedure Laterality Date RECONSTRUCTION BREAST TISSUE BUSINESS ACCOUNT EXECUTIVE INCLUDING SUBSEQUENT EXPANDERS Bilateral 07/25/2022 Bilateral breast [...] ports are easily palpable. The pts Tissue Reel Cart Operator was Filled with 80 cc's of Injectable [...] to this encounter. documented in this encounter [facility] 08-09-2022 History of Present illness Narrative [...] lobular carcinoma of right breast, stage 1 nursing home (current) use of aromatase inhibitors Malignant neoplasm of female breast Menopause Osteoporosis Post-menopausal atrophic vaginitis Past Surgical History: Procedure Laterality Date RECONSTRUCTION BREAST TISSUE BUSINESS ACCOUNT EXECUTIVE INCLUDING SUBSEQUENT EXPANDERS Bilateral 07/25/2022 Bilateral breast [...] to this encounter. documented in this encounter [facility] 2022 History of Present illness Narrative [...] lobular carcinoma of right breast, stage 1 nursing home (current) use of aromatase inhibitors Malignant neoplasm of female breast Menopause Osteoporosis Post-menopausal atrophic vaginitis Past Surgical History: Procedure Laterality Date RECONSTRUCTION BREAST TISSUE BUSINESS ACCOUNT EXECUTIVE INCLUDING SUBSEQUENT EXPANDERS Bilateral 07/25/2022 Bilateral breast [...] kg/m Smoking Status Never The patient's tissue systems integration analyst are in appropriate position. The fill ports [...] to this encounter. documented in this encounter [facility] 07-25-2022 Nurse Note Called in to OR [address] Vieira to give pt 1 percocet 5/325mg one time for pain. This nurse transfers patient from PACU to [facility]. Patient's family is at bedside. Bedside report and anesthesia SBAR is given to Cata SANDOVAL. Patient is alert, oriented and stable. Cart is locked, in lowest position and call light is in reach of patient Transferred to PACU via bed with this nurse and FRANCISCO Gray. Bedside report given to JAIME Barreto OR temp 67deg F OR humidity 47% documented in this encounter [facility] 07-25-2022 Nurse Surgical operation note Called in to OR [address] Vieira to give pt 1 percocet 5/325mg one time for pain. [facility] 07-25-2022 Hospital Discharge instructions Kalani Vieira MD - 07/25/2022 12:51 PM EST Follow instructions given in the office. Use the incentive spirometer 3-4 x a day documented in this encounter [facility] 07-25-2022 Nurse Surgical operation note This nurse transfers patient from PACU to [facility]. Patient's family is at bedside. Bedside report and anesthesia SBAR is given to Cata SANDOVAL. Patient is alert, oriented and stable. Cart is locked, in lowest position and call light is in reach of patient [facility] 07-25-2022 Note Formatting of this n ote is different from the original. POST OPERATIVE/PROCEDURE NOTE Sherry Vazquez ([id number]) SURGEON Surgeon(s) and Role: * Kalani Vieira MD - Primary PUBLIC HEALTH DOCTOR [facility] ANESTHESIOLOGIST ENT SURGEON: Renuka Newton APRN-ENT SURGEON; Isaac Lynn APRN-ENT SURGEON SURGICAL STAFF Sheet Music Salesperson: Kenna Jaime RN; Brenda Fernando RN; Lucy Guerrero RN Scrub Person: Yulisa Riggs Mechanical Design Engineer [employer] Supervisor: Apryl Vásquez PROCEDURE PERFORMED Bilateral breast reconstruction [...] Vieira MD July 25, 2022 12:23 PM [facility] 07-25-2022 Note Formatting of this n ote is different from the original. POST OPERATIVE/PROCEDURE NOTE Sherry Vazquez ([id number]) SURGEON Surgeon(s) and Role: * Kalani Vieira MD - Primary PUBLIC HEALTH DOCTOR [facility] ANESTHESIOLOGIST ENT SURGEON: Renuka Newton APRN-ENT SURGEON; DIMPLE Johns SURGICAL STAFF Sheet Music Salesperson: Kenna Jaime RN; Brenda Fernando RN; Lucy Guerrero RN Scrub Person: Yulisa [facility] Center[facility] Development Enterprise Mechanical Design Engineer Products Photoengraving Supervisor: Apryl Vásquez PROCEDURE PERFORMED Bilateral breast reconstruction [...] Vieira MD July 25, 2022 12:23 PM [facility] 07-25-2022 Miscellaneous Notes POST OPERATIVE/PROCEDURE NOTE Sherry Vazquez ([id number]) SURGEON Surgeon(s) and Role: * Kalani Vieira MD - Primary PUBLIC HEALTH DOCTOR [facility] ANESTHESIOLOGIST ENT SURGEON: CATRACHO UrbinaENT SURGEON; DIMPLE Johns SURGICAL STAFF Sheet Music Salesperson: Kenna Jaime RN; Brenda Fernando RN; Lucy Guerrero RN Scrub Person: Yulisa Riggs Mechanical Design Engineer [employer] Supervisor: Apryl Vásquez PROCEDURE PERFORMED Bilateral breast reconstruction [...] 2022 12:23 PM documented in this encounter [facility] 07-25-2022 Nurse Surgical operation note Transferred to PACU via bed with this nurse and FRANCISCO Gray. Bedside report given to JAIME Barreto [facility] 07-25-2022 Nurse Surgical operation note OR temp 67deg F OR humidity 47% [facility] 07-25-2022 History and physical note Subjective: Sherry Vazquez is an 66 y.o. female who presents for evaluation of Bilateral absence breasts. 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, stage 1 salvage determiner (current) use of aromatase inhibitors Malignant neoplasm [...] procedure for bilateral reconstruction with tissue expanders [facility] 07-25-2022 History and physical note Subjective: Sherry Vazquez is an 66 y.o. female who presents for evaluation of Bilateral absence breasts. 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, stage 1 nursing home (current) use of aromatase inhibitors Malignant neoplasm [...] with tissue expanders documented in this encounter [facility] 07-12-2022 History of Present illness Narrative [...] lobular carcinoma of right breast, stage 1 salvage determiner (current) use of aromatase inhibitors Malignant neoplasm [...] with any questions documented in this encounter [facility] 06-21-2022 History of Present illness Narrative [...] lobular carcinoma of right breast, stage 1 salvage determiner (current) use of aromatase inhibitors Malignant neoplasm [...] them. She was measured for a tissue systems integration analyst and based on the width of her chest wall, we chose [id number] or the systems integration analyst. Assessment: The patient for scheduled tissue systems integration analyst Placement bilaterally Plan: We will proceed with surgery in the near future. She is to get her medical clearance. documented in this encounter [facility] 04-27-2022 History of Present illness Narrative [...] lobular carcinoma of right breast, stage 1 salvage determiner (current) use of aromatase inhibitors Malignant neoplasm [...] like to proceed with reconstruction with tissue systems integration analyst A detailed conversation was had regarding the [...] types of reconstructions described included: 1) Tissue systems integration analyst and implant based reconstruction, both single and [...] coordinate going forward. documented in this encounter [facility] 04-12-2022 History of Present illness Narrative [...] L2 SAB0 IAB0 Ectopic0 Multiple0 Live Births0 Clinical Admissions Manager History LMP: Postmenopausal Age at Menarche: Age at First : Age at Menopause: Clinical Admissions Manager History Comments: Sexual Activity: Yes; Male Contraception: [...] external genitalia normal, normal Bartholin's glands, urethra, Castor's glands, no vulvar lesions, no cervical lesions, [...] Analia Whitten MD documented in this encounter [facility] 03-29-2022 Miscellaneous Notes Faxed referral to Dr. Deysi Vieira. Awaiting appt. Date/time. documented in this encounter [facility] 03-29-2022 History of Present illness Narrative HISTORY [...] Two sentinel lymph nodes negative for metastasis. ER/NE positive and HER-2/blaire not amplified. Patient underwent [...] right breast LCIS, BRCA2 mutation. T2 N0. ER/NE positive HER-2/blaire not amplified. OncoDx score 18 [...] Note: This dictation was partially generated using [employer] voice recognition software. Please excuse any grammatical [...] access? Answer: Yes documented in this encounter [facility] 09-30-2021 Miscellaneous Notes Called patient to inform her that a Potassium prescription was sent to [facility] [place] per [place] Paige. Patient is aware and will administrative staff supervisor medication tomorrow. Madalyn Burnett MA documented in this encounter [facility] 09-30-2021 Miscellaneous Notes Addended by: SHAYNA PAIGE on: 09/30/2021 10:56 AM Modules accepted: Orders documented in this encounter [facility] 09-30-2021 History of Present illness Narrative HISTORY [...] Two sentinel lymph nodes negative for metastasis. ER/NE positive and HER-2/blaire not amplified. Patient underwent [...] Ref Range: 1.00 - 4.00 k/uL 1.82 [place]% Latest Units: % 7.9 Abs [place] Latest Ref Range: <0.87 k/uL 0.47 Eosin% [...] right breast LCIS, BRCA2 mutation. T2 N0. ER/NE positive HER-2/blaire not amplified. OncoDx score 18 [...] now. She is scheduled for colonoscopy in [facility] on April 21. Reviewed lab, we will [...] Note: This dictation was partially generated using [employer] voice recognition software. Please excuse any grammatical [...] tablet Refill: 0 documented in this encounter [facility] Diagnosis Neoplasm of right breast, primary tumor staging category Tis: lobular carcinoma in situ (LCIS)- Primary Osteoporosis, unspecified osteoporosis type, unspecified pathological fracture presence [facility] Diagnosis Neoplasm of right breast, primary tumor staging category Tis: lobular carcinoma in situ (LCIS)- Primary Osteoporosis, unspecified osteoporosis type, unspecified pathological fracture presence [facility] Diagnosis Encounter for gynecological examination (general) (routine) without abnormal findings- Primary [facility] Diagnosis 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 Acquired absence of breast and nipple Personal history of malignant neoplasm of breast [facility] Diagnosis 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 Acquired absence of breast and nipple Personal history of malignant neoplasm of breast Acquired absence of bilateral breasts and nipples Acquired absence of breast and nipple Personal history of malignant neoplasm of breast [facility] Diagnosis S/P breast reconstruction, bilateral- Primary Breast replaced by other means Acquired absence of bilateral breasts and nipples Acquired absence of breast and nipple Personal history of malignant neoplasm of breast Acquired absence of bilateral breasts and nipples Acquired absence of breast and nipple Personal history of malignant neoplasm of breast [facility] Diagnosis 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 Acquired absence of breast and nipple Acquired absence of bilateral breasts and nipples Acquired absence of breast and nipple Personal history of malignant neoplasm of breast [facility] Diagnosis 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 Acquired absence of breast and nipple Acquired absence of bilateral breasts and nipples Acquired absence of breast and nipple Personal history of malignant neoplasm of breast [facility] Diagnosis 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 Acquired absence of breast and nipple S/P breast reconstruction, bilateral Breast replaced by other means [facility] Diagnosis 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 Acquired absence of breast and nipple [facility] Diagnosis 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 Acquired absence of breast and nipple Personal history of malignant neoplasm of breast [facility]* Diagnosis Invasive lobular carcinoma of right breast, stage 1 (HCC) T2 N0- Primary BRCA 2 gene mutation positive documented in this [facility] Diagnosis 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 Acquired absence of breast and nipple S/P breast reconstruction, bilateral Breast replaced by other means [facility]* Diagnosis History of breast cancer- Primary Personal history of malignant neoplasm of breast Encounter for screening for osteoporosis Special screening for osteoporosis 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 documented in this encounter [facility] note* Diagnosis Other osteoporosis without current pathological fracture- Primary [facility] History of right breast cancer- Primary documented in this encounter [facility] for visit Narrative* Auth/Cert Specialty Diagnoses / Procedures Referred By Sam carlson Referred To Contact Diagnoses Acquired absence of bilateral breasts and nipples Personal history of malignant neoplasm of breast Acquired absence of bilateral breasts and nipples [Z90.13] Personal history of malignant neoplasm of breast [Z85.3] Procedures NE TISSUE BUSINESS ACCOUNT EXECUTIVE PLACEMENT BREAST RECONSTRUCTION NE IMPLNT BIO IMPLNT FOR SOFT TISSUE REINFORCEMENT RECONSTRUCTION BREAST TISSUE BUSINESS ACCOUNT EXECUTIVE INCLUDING SUBSEQUENT EXPANDERS IMPLANTATION BIOLOGIC IMPLANT FOR SOFT TISSUE REINFORCEMENT ADD-ON PX Kalani Vieira MD [address] [place] [address] Referral ID Status Reason Start Date Expiration Date Visits Re quested Visits Authorized [id number] 06/06/2022 1 1 [facility] Summary Purpose Family History No Family History Records FoundNo Family History Records FoundNo Family History Records FoundNo Family History Records FoundNo Family History Records Found Advance Directives No Advanced Directives Records FoundDocuments on File Type Date Recorded Patient Presidential Support Specialist Expl anation Advance Directive(s) 04/21/2021 9:40 AM Documents on File Type Date Recorded Patient Presidential Support Specialist Expl anation Advance Directives/Living Will 07/14/2022 2:39 PM Living Will Documents on File Type Date Recorded Patient Presidential Support Specialist Expl anation Advance Directives/Living Will 07/14/2022 2:39 PM Living Will Reason for Referral Specialty Diagnoses / Procedures Referred By Sam carlson Referred To Contact Plastic Surgery Diagnoses Neoplasm of right breast, primary tumor staging category Tis: lobular carcinoma in situ (LCIS) Procedures CONSULT TO PLASTIC SURGERY OFFICE/OUTPATIENT [facility] MDM 60-74 MINUTES Shayna Paige MD [address] [place] [address] Referral ID Status Reason Start Date Expiration Date Visits Requested Visits Authorized [id number] Authorized PCP Requested Referral 03/29/2022 03/29/2023 1 1 Additional Source Comments INFORMATION SOURCE (unrecogn ized section and content) DATE CREATED AUTHOR AUTHOR'S ORGANIZ ATION 12/29/2017 [facility] DATE CREATED AUTHOR AUTHOR'S ORGANIZ ATION 10/12/2022 [facility] DATE CREATED AUTHOR AUTHOR'S ORGANIZ ATION 11/05/2022 [facility] DATE CREATED AUTHOR AUTHOR'S ORGANIZ ATION 05/14/2023 [facility] Source Comments (unrecognize d section and content) In the event this informatio n is protected by the Federal Confidentiality of Alcohol and Drug Abuse Patient Records regulations: The Federal rules restrict any use of the information to criminally investigate or prosecute any alcohol or drug abuse patient.[facility] the event this information is protected by the Federal Confidentiality of Alcohol and Drug Abuse Patient Records regulations: The Federal rules restrict any use of the information to criminally investigate or prosecute any alcohol or drug abuse patient.[facility] the event this information is protected by the Federal Confidentiality of Alcohol and Drug Abuse Patient Records regulations: The Federal rules restrict any use of the information to criminally investigate or prosecute any alcohol or drug abuse patient.[facility] the event this information is protected by the Federal Confidentiality of Alcohol and Drug Abuse Patient Records regulations: The Federal rules restrict any use of the information to criminally investigate or prosecute any alcohol or drug abuse patient.[facility] the event this information is protected by the Federal Confidentiality of Alcohol and Drug Abuse Patient Records regulations: The Federal rules restrict any use of the information to criminally investigate or prosecute any alcohol or drug abuse patient.[facility] the event this information is protected by the Federal Confidentiality of Alcohol and Drug Abuse Patient Records regulations: The Federal rules restrict any use of the information to criminally investigate or prosecute any alcohol or drug abuse patient.[facility] the event this information is protected by the Federal Confidentiality of Alcohol and Drug Abuse Patient Records regulations: The Federal rules restrict any use of the information to criminally investigate or prosecute any alcohol or drug abuse patient.[facility] the event this information is protected by the Federal Confidentiality of Alcohol and Drug Abuse Patient Records regulations: The Federal rules restrict any use of the information to criminally investigate or prosecute any alcohol or drug abuse patient.[facility] the event this information is protected by the Federal Confidentiality of Alcohol and Drug Abuse Patient Records regulations: The Federal rules restrict any use of the information to criminally investigate or prosecute any alcohol or drug abuse patient.[facility] the event this information is protected by the Federal Confidentiality of Alcohol and Drug Abuse Patient Records regulations: The Federal rules restrict any use of the information to criminally investigate or prosecute any alcohol or drug abuse patient.[facility] the event this information is protected by the Federal Confidentiality of Alcohol and Drug Abuse Patient Records regulations: The Federal rules restrict any use of the information to criminally investigate or prosecute any alcohol or drug abuse patient.[facility] the event this information is protected by the Federal Confidentiality of Alcohol and Drug Abuse Patient Records regulations: The Federal rules restrict any use of the information to criminally investigate or prosecute any alcohol or drug abuse patient.[facility] Reason for Visit (unrecogniz ed section and content) Reason Comments F/U 6 Month Reason Comments Patient Update Called patient to in form her that [facility] [place] [facility] Paige. Patient is aware and will administrative staff supervisor medication tomorrow. Reason Comments Care Coordination Breast Cancer Index sent on Breast Bx from 2016 Reason Comments F/U 6 Month Reason Comments [facility] Reason Comments Yearly Exam Reason Comments Consult [...] in situ (LCIS) Shayna Paige MBBS [address] [place] [address] Kalani Vieira MD [address] [place] [id number] Referral ID Status Reason Start Date Expiration Date V isits Requested Visits Authorized [id number] Pending Review 03/29/2022 04/23/2023 1 1 Reason [...] Care Teams (unrecognized sec tion and content) Lunch Cook Relationship Specialty Start Date End Date Jamison Sandy, MARKET RISK ANALYST [address] [place] [address] PCP - General Family Practice 09/30/21 Lunch Cook Relationship Specialty Start Date End Date Jamison Sandy MARKET RISK ANALYST [address] [place] [address] PCP - General Family Practice 09/30/21 Lunch Cook Relationship Specialty Start Date End Date Jamison Sandy MARKET RISK ANALYST [address] [place] [address] PCP - General Family Practice 09/30/21 Lunch Cook Relationship Specialty Start Date End Date Jamison Sandy MARKET RISK ANALYST [address] [place] [address] PCP - General Family Medicine 09/30/21 Lunch Cook Relationship Specialty Start Date End Date Jamison Sandy MARKET RISK ANALYST [address] [place] [address] PCP - General Family Medicine 09/30/21 Lunch Cook Relationship Specialty Start Date End Date Jamison Sandy MARKET RISK ANALYST [address] [place] [address] PCP - General Family Medicine 09/30/21 Lunch Cook Relationship Specialty Start Date End Date Hellinger, Jamison L, SCRAP HOIST OPERATOR-MARKET RISK ANALYST [address] [place] [address] PCP - General Certified Nurse Practitioner 04/27/22 Lunch Cook Relationship Specialty Start Date End Date Jamison Sandy SCRAP HOIST OPERATOR-MARKET RISK ANALYST [address] [place] [address] PCP - General Certified Nurse Practitioner 04/27/22 Lunch Cook Relationship Specialty Start Date End Date Jamison Sandy SCRAP HOIST OPERATOR-MARKET RISK ANALYST [address] [place] [address] PCP - General Certified Nurse Practitioner 04/27/22 Lunch Cook Relationship Specialty Start Date End Date Jamison Sandy SCRAP HOIST OPERATOR-MARKET RISK ANALYST [address] [place] [address] PCP - General Certified Nurse Practitioner 04/27/22 Lunch Cook Relationship Specialty Start Date End Date Jamison Sandy SCRAP HOIST OPERATOR-MARKET RISK ANALYST [address] [place] [address] PCP - General Certified Nurse Practitioner 04/27/22 Lunch Cook Relationship Specialty Start Date End Date Jamison Sandy SCRAP HOIST OPERATOR-MARKET RISK ANALYST [address] [place] [address] PCP - General Certified Nurse Practitioner 04/27/22 Lunch Cook Relationship Specialty Start Date End Date Jamison Sandy SCRAP HOIST OPERATOR-MARKET RISK ANALYST [address] [place] [address] PCP - General Certified Nurse Practitioner 04/27/22 Lunch Cook Relationship Specialty Start Date End Date RanjanjackyAgustokirill King MARKET RISK ANALYST [address] [place] [address] PCP - General Family Medicine 09/30/21 Lunch Cook Relationship Specialty Start Date End Date Vika Jamisnokirill King MARKET RISK ANALYST [address] [place] [address] PCP - General Family Medicine 09/30/21 Lunch Cook Relationship Specialty Start Date End Date Felicia Sandy, YOLI [address] [place] [address] PCP - General Family Medicine 09/30/21 Lunch Cook Relationship Specialty Start Date End Date Felicia Sandy CNP [address] [place] [address] PCP - General Family Medicine 09/30/21 Scheduled [...] 2 g, Intravenous, Administer over 30 Minutes, UNIFIED COMMUNICATIONS ARCHITECT TO PROCEDURE, 1 dose, Starting on Mon07/25/22 at 0741, Until Mon07/25/22 at 0748, Other, Pre-operative antibiotic, For 15 Minutes, Pre-op/Pre-Proc 0748 (Given - Provid er: DIMPLE Johns) Gentamicin (GARAMYCIN) injection NEEDED, Starting on Mon07/25/22 at 0822, Until Mon07/25/22 at 2019, Intra-op/Intra-Proc 0822 (Given - Provid er: aKlani Vieira MD - Comment: given to sterile [...] 2 g, Intravenous, Administer over 30 Minutes, UNIFIED COMMUNICATIONS ARCHITECT TO PROCEDURE, 1 dose, Starting on Mon07/25/22 at 0741, Until Mon07/25/22 at 0748, Other, Pre-operative antibiotic, For 15 Minutes, Pre-op/Pre-Proc 0748 (Given - Provid er: Isaac Lynn APRN-[facility]) Gentamicin (GARAMYCIN) injection NEEDED, Starting on Mon07/25/22 [...] BE BASED ON THE PRIMARY CLINICAL RECORDS. [facility]. provides no warranty or guarantee of the accuracy or completeness of information in this document.
[2023-08-11 13:48] LABS: CREATININE FINGERSTICK 1.1 mg/dL (0.55-1.02)
== END | disposition home or self-care (01) ==
LOC: MRI 13:08
PROVIDERS: PCP Nurse Practitioner Family; Referring Provider Nurse Practitioner Family; Visit Provider Nurse Practitioner Family
DX: R22.2 Localized swelling, mass and lump, trunk (principal)
CPT/HCPCS: 71552; A9575

== ENCOUNTER 2024-06-10 12:21 | Emergency (ER) | payer MEDICARE, OTHER, SELFPAY ==
[2024-06-10 12:21] VITALS: BP 158/63; PULSE 54; RESP 16; TEMP 36.6; O2SAT 100; BMI 24.4
[2024-06-10 13:00] VITALS: BP 158/72; PULSE 53; RESP 11; O2SAT 100
--- NOTE | 2024-06-10 13:23 | EKG12_ITS ---
Test Reason : CP Blood Pressure : */* mmHG Vent. Rate : 55 BPM Atrial Rate : 55 BPM P-R Int : 124 ms QRS Dur : 72 ms QT Int : 490 ms P-R-T Axes : 68 43 60 degrees QTcB Int : 468 ms Sinus bradycardia Nonspecific ST abnormality Abnormal ECG Confirmed by CHANEL CARRINGTON, LULA ([id number]), editor index BRENNAN LEES ([id number]) on 06/11/2024 8:15:47 AM Referred By: Confirmed By: LULA BUCHANAN MD
--- NOTE | 2024-06-10 13:24 | ED.VIS.CHEST ---
HPI History of Present Illness Chief Complaint: Chest Pain Informant: patient and spouse/S.O. Narrative Narrative: 68-year-old female has had right-sided lateral thoracic pain for the past 2 weeks. Has been gradually worsening. It is worse with certain position changes, it is worse if she takes a really deep breath but not with every day breathing, and she has had some occasional dyspnea with that. No syncopal episodes or palpitations. She currently has metastatic breast cancer that she is treating with targeted/hormonal/receptor treatments, no classic chemotherapy or radiation treatments. She has had a cough recently nonproductive no blood, no fevers or chills. She is not anticoagulated and has no history of thromboembolic disease. [facility] Medical History Loose, teeth Cancer Non-smoker History of echocardiogram History of stress test GERD (gastroesophageal reflux disease) Osteoporosis High cholesterol High blood pressure Anxiety and depression Breast cancer Breast lump Home Medications ?Medication ?Instructions ?Recorded ?Last Taken ?Type cholecalciferol (vitamin D3) 125 5,000 unit PO DAILY 11/08/16 Unknown History mcg (5,000 unit) capsule multivitamin (Multiple Vitamins 1 ea PO DAILY 11/08/16 Unknown History tablet) alendronate 70 mg tablet (Fosamax) 70 mg PO QWEEK 12/28/22 Unknown History atorvastatin 20 mg tablet 20 mg PO DAILY 12/28/22 Unknown History cimetidine 200 mg tablet 200 mg PO QAC PRN acid reflux 12/28/22 Unknown History hydrochlorothiazide 25 mg tablet 25 mg PO DAILY 12/28/22 Unknown History Allergy/AdvReac Type Severity Reaction Status Date / Time adhesive tape AdvReac Severe Rash Verified 06/10/24 12:24 Family History Other Breast cancer Cervical cancer Colon cancer Heart disease High cholesterol Hypertension Osteoporosis Surgical History History of breast reconstruction History of colonoscopy History of mastectomy Social History Smoking Status: Never smoker alcohol intake: current substance use type: does not use additional social history: Does Take Aspirin Does Not Take Ibuprofen ROS ROS ED Constitutional Constitutional ED: Denies chills or fever(s) Eyes Eyes: Denies change in vision or diplopia ENT ENT ED: Denies rhinorrhea or sore throat Cardiovascular Cardiovascular: Reports as per HPI and chest pain; Denies palpitations Respiratory/Chest Respiratory/Chest: Reports cough and dyspnea; Denies sputum Gastrointestinal Gastrointestinal: Denies abdominal pain, diarrhea, nausea or vomiting Genitourinary Genitourinary ED: Denies dysuria or hematuria Musculoskeletal Musculoskeletal: Reports back pain; Denies neck pain Integumentary Denies abscess or rash Neurologic Neurologic: Denies headache(s), paresthesias or weakness Psychiatric Psychiatric: Denies anxiety or suicidal thoughts EXAM Physical Exam Const Vital Signs: 06/10/24 12:21 06/10/24 12:49 06/10/24 13:00 Temperature 98 F Temperature Source Oral Pulse Rate 54 L 53 L Respiratory Rate 16 11 L Respiratory Effort Normal Non-Labored Blood Pressure 158/63 H 158/72 H Blood Pressure Mean 94 96 Pulse Ox 100 100 Oxygen Delivery Method Room Air 06/10/24 13:58 06/10/24 14:00 06/10/24 15:00 Temperature Temperature Source Pulse Rate 53 L 48 L Respiratory Rate 12 13 Respiratory Effort Blood Pressure Blood Pressure Mean Pulse Ox 99 97 Oxygen Delivery Method Room Air 06/10/24 16:00 Temperature Temperature Source Pulse Rate 56 L Respiratory Rate 15 Respiratory Effort Blood Pressure Blood Pressure Mean Pulse Ox 100 Oxygen Delivery Method Positive well nourished and well developed General Appearance ED: well developed and NAD HEENT Reports moist mucous membranes normocephalic and atraumatic Eyes PERRL and EOMs intact bilaterally Neck full ROM and supple Chest Wall inspection of chest normal and palpation of chest normal Chest Narrative: Not able to reproduce pain with palpation throughout right lateral chest wall Resp normal respiratory effort and clear to auscultation bilaterally Cardio regular rate, regular rhythm and no murmurs Rate: bradycardia; Negative for tachycardic GI non-tender and non-distended Auscultation: normoactive bowel sounds Palpation: soft Back/Spine no CVA tenderness General Back: other FROM Extremity normal to inspection General Extremety ED: Negative for edema, pulses abnormal or tenderness General Extremity: Negative for edema or pulses abnormal Neuro oriented x3, CN's II-XII intact bilaterally and no sensory deficits noted Sensorium / Orientation: awake and alert Motor Exam: strength 5/5 throughout Psych mental status grossly normal Skin no rashes or lesions noted and no wounds MDM MDM MDM Narrative Medical decision making narrative: Patient states she did have a thoracentesis, my exam right now she is down to 1 both sides so I am assuming that her symptoms are not caused by a pleural effusion. She states she has metastases to the pleura and the chest wall but it has never hurt her like the pain she is currently having. For that reason, considering pulmonary embolus and obtaining a D-dimer while we obtain a chest x-ray and rule out pleural effusions initially. 1 view chest x-ray on my interpretation is unremarkable, and her D-dimer is elevated even when corrected for age so CT angiography of the chest was ordered to evaluate for PE. Unfortunately, multiple ER and radiology nurses attempted to obtain appropriate IV access in order to perform CTA, but were unable. Patient has a small peripheral IV. Therefore the next most appropriate test is a VQ scan, and given the history that the patient has pre-existing chest wall and pleural masses, this does have an increased possibility of being indeterminate, but is the only test we are able to obtain to evaluate her for PE for the right now. Of note, prior to getting this, she is ambulatory in the hallways without any difficulty and feeling well. I am at a low suspicion for pulmonary embolus given her lack of hypoxemia or tachycardia, and without being on any AV tigre blockers. We attempted to obtain VQ scan now but the isotope is not here and needs to be ordered and therefore it will not be able to be obtained today. Therefore I think reasonable to obtain VQ scan as an outpatient and I do not think she needs to be anticoagulated empirically. Of note the patient states she feels like this is a subluxed rib which she has had before and had successfully manipulated by chiropractor. Discussed all this with Dr. Cesar, he was amenable to follow-up on the results of the scan if we get it as an outpatient, so we will schedule it for her here at the hospital. History & Record Review Additional record(s) reviewed:: Prior outpatient record (MRI chest 08/2023: Mass present in right upper lobe/anterior mediastinum/right breast tissue/chest wall) Lab Data Attestation: I reviewed the patient's lab results. Labs: Laboratory Results - last 24 hr 06/10/24 13:50 WBC 3.7 L RBC 3.37 L Hgb 13.0 Hct 36.4 L MCV 108.0 H MCH 38.6 H MCHC 35.7 RDW Std Deviation 55.8 H RDW Coeff of Geronimo 14.0 Plt Count 181 MPV 9.2 Immature Gran % (Auto) 0.800 Neut % (Auto) 57.5 Lymph % (Auto) 33.2 [place] % (Auto) 6.0 Eos % (Auto) 1.1 Baso % (Auto) 1.4 H Absolute Neuts (auto) 2.1 Absolute Lymphs (auto) 1.21 Nucleated RBC % 0 D-Dimer Quant (PE/DVT) 0.89 H* Sodium 140 Potassium 3.8 Chloride 105 Carbon Dioxide 29.0 Anion Gap 6 BUN 17 Creatinine 1.16 H Estim Creat Clear Calc 32.88 Est GFR (MDRD) Af Amer 59 L Est GFR (MDRD) Non-Af 49 L BUN/Creatinine Ratio 14.7 Glucose 96 Calcium 9.8 Troponin I High Sens 4 Radiography Diagnostic Testing: Clinical Impression(s) from Imaging Studies Chest X-Ray 06/10/24 13:55 IMPRESSION: Residual soft tissue density in the right paratracheal region although this has improved as compared to prior study. Electronically Signed: Mo Cisse MD at 14:14 EST , Rhythm Strip Rhythm Strip: Sinus Rhythm Rate: 55 Ectopy: None EKG Initial EKG: Attestation: I personally reviewed and interpreted this EKG as follows: Interpretation: Sinus Rhythm and No Acute Injury Pattern Comments: Nml axis & intervals; nml EKG Management Discussion w/another healthcare provider: Network Control Operators Supervisor (Oncology Dr. Cesar) Discharge Plan Triage Chief Complaint: Chest Pain ED Provider: Ever Moon Dx/Rx/DC Orders Clinical Impression: Right-sided chest pain Instructions: ED Chest Pain, Uncertain Cause Prescriptions: No Action atorvastatin 20 mg tablet 20 mg PO DAILY alendronate [Fosamax] 70 mg tablet 70 mg PO QWEEK cimetidine 200 mg tablet 200 mg PO QAC PRN (Reason: acid reflux) multivitamin [Multiple Vitamins] 1 EACH tablet 1 ea PO DAILY cholecalciferol (vitamin D3) 5,000 UNIT capsule 5,000 unit PO DAILY Patient Comments: SUPPLEMENT hydrochlorothiazide 25 mg tablet 25 mg PO DAILY Patient Comments: BP Other Ambulatory Orders: Lung Scan Vent/Perf (Routine) Timeframe: 3 Days Facility: [facility] - Location: [facility] Ordered By: Dr. Ever Moon Primary Care Provider: Tony Sandy NP Referrals: Jhoann Cesar DO [Med Staff - Active Staff] - (f/u after your VQ scan) Tony Sandy NP, MOLD MAKER PLASTER-C [Primary Care Provider] - Print Language: Polish Disposition Disposition: Home, Self Care
--- NOTE | 2024-06-10 13:55 | RAD_ITS ---
STUDY: X-RAY CHEST REASON FOR EXAM: Female, 68 years old. 2 week history of right-sided chest pain. History of stage IV breast carcinoma. Shortness of breath. TECHNIQUE: Single AP portable view of the chest. COMPARISON: Comparison is made with prior examination dated May 24, 2023. FINDINGS: EKG electrodes are seen. There is elevation of the lateral aspect of the right hemidiaphragm. There is no demonstrated pleural abnormality. Normal size heart. Residual soft tissue prominence along the right paratracheal region although this has improved as compared to prior study. Normal visualized pulmonary arteries. There is atherosclerotic calcification of the aortic arch with tortuosity. There are diffuse degenerative changes of the visualized thoracic spine. Normal visualized ribs, clavicles, and shoulders. Small hiatal hernia. RAD/Chest 1 View (Portable) IMPRESSION: Residual soft tissue density in the right paratracheal region although this has improved as compared to prior study. Electronically Signed: Mo Cisse MD at 14:14 EST ,
[2024-06-10 14:00] VITALS: PULSE 53; RESP 12; O2SAT 99
[2024-06-10 14:03] LABS: Absolute Lymphocyte Count 1.21 X10^3/uL (0.83-4.51); Absolute Neutrophil Count 2.1 X10^3/uL (2.0-7.7); Basophil# 0.05 X10^3/uL; Basophil% 1.4 % (0-1); Eosinophil# 0.04 X10^3/uL; Eosinophils% 1.1 % (0-5); Hematocrit 36.4 % (37-47); Lymphocyte # 1.21 X10^3/ul (0.83-4.51); Lymphocyte % 33.2 % (19-41); Mean Corp Hgb Conc 35.7 g/dL (32-36); Mean Corpuscular Hgb 38.6 pg (27.0-32.0); Mean Platelet Vol. 9.2 fl (6.2-12.0); Monocyte# 0.22 X10^3/uL; NRBC Flagged by Analyzer 0 % (0-5); Neutrophil % 57.5 % (47-70); POSITIVE MORPHOLOGY YES; Platelet Count 181 K/mm3 (150-450); RBC Distribution Width SD 55.8 fl (35.1-43.9); Red Blood Count 3.37 M/mm3 (4.2-5.4); White Blood Count 3.7 K/mm3 (4.4-11.0)
[2024-06-10 14:06] LABS: Differential Indicated SCAN CRITERIA MET
[2024-06-10 14:22] LABS: Anion Gap 6 (5-15); BUN 17 mg/dL (7-18); BUN/Creat Ratio 14.7 RATIO (10-20); Calcium,Total 9.8 mg/dL (8.5-10.1); Chloride 105 mmol/L (98-107); Creatinine, Serum 1.16 mg/dL (0.55-1.02); EST Glomerular Filtration Rate 49 mL/min (>60); Est Glom Filt Rate - Afr Amer 59 mL/min (>60); Estimated Creatinine Clearance 32.88 ml/min; Glucose 96 mg/dL (74-106); Potassium 3.8 mmol/L (3.5-5.1); Sodium Level 140 mmol/L (136-145); Troponin-I HS 4 pg/mL (3.0-54.0)
[2024-06-10 14:23] LABS: D-Dimer Quantitative (DVT/PE) 0.89 FEU/ug/m (0.27-0.49)
[2024-06-10 15:00] VITALS: PULSE 48; RESP 13; O2SAT 97
[2024-06-10 16:00] VITALS: PULSE 56; RESP 15; O2SAT 100
[2024-06-10 16:15] VITALS: PULSE 51; RESP 11; O2SAT 98
== END 2024-06-10 17:20 | disposition home or self-care (01) ==
PROVIDERS: Emergency Provider Emergency Medicine; PCP Nurse Practitioner Family; Visit Provider Emergency Medicine
DX: R07.9 Chest pain, unspecified (principal); C78.2 Secondary malignant neoplasm of pleura; C79.89 Secondary malignant neoplasm of other specified sites; C50.911 Malignant neoplasm of unspecified site of right female breast; E78.00 Pure hypercholesterolemia, unspecified; Z79.899 Other long term (current) drug therapy
CPT/HCPCS: 71045; 80048; 84484; 85025; 85379; 93005; 99283; A4216

== ENCOUNTER → 2024-06-12 | Outpatient (CLI) | payer MEDICARE, OTHER, SELFPAY ==
--- NOTE | 2024-06-12 10:15 | NM_ITS ---
CLINICAL: 68-year-old female with history of chest discomfort and shortness of breath, elevation of the d-dimer. VENTILATION-PERFUSION LUNG SCINTIGRAPHY COMPARISON: Plain film chest radiograph report 06/10/2024 FINDINGS: The patient was administered 51.3 mCi 99m Tc DTPA aerosol. The aerosol ventilation study demonstrates normal ventilation defined in the bilateral lung britton. No segmental or subsegmental ventilatory defects are identified. There is no central clumping of the aerosol visualized. Following the intravenous administration of 5.3 mCi of 99m Tc MAA, the pulmonary perfusion study reveals uniform perfusion throughout both lung britton. There are no segmental or subsegmental perfusion defects consistently identified on review of sequential acquisitions-projections. NM/Lung Scan Vent/Perf IMPRESSION: 1. NORMAL 99m Tc DTPA aerosol ventilation/Tc 99m MAA pulmonary perfusion imaging examination, according to PIOPED II interpretive criteria. (Sotsman et al, Radiology 246: 941, 2008 Socharles et al, J Nucl Med 49: 1741, 2008). Electronically Signed: Felix Rogers DO at 11:28 EST ,
== END | disposition home or self-care (01) ==
LOC: NM 10:12
PROVIDERS: PCP Nurse Practitioner Family; Referring Provider Emergency Medicine; Visit Provider Emergency Medicine
DX: R07.9 Chest pain, unspecified (principal); R06.02 Shortness of breath; R79.1 Abnormal coagulation profile
CPT/HCPCS: 78582; A9540; A9567